=== PATIENT | female | born 2000 | race African-American/Black ===

== ENCOUNTER 2021-02-24 11:55 | Outpatient (CLI) | payer OTHER, SELFPAY ==
--- NOTE | ~2021-02-24 | US_ITS ---
EXAMINATION: US breast BI complete HISTORY: Bilateral nipple discharge TECHNIQUE: Complete bilateral ultrasound including all four quadrants and the subareolar breasts was performed. COMPARISON: 05/14/2016 FINDINGS: No suspicious mass is identified in either breast to account for the patient's bilateral ni pple discharge. The subareolar breasts are normal in appearance as well. IMPRESSION: No specific sonographic correlate is identified for the reported patient's reported nipple discharge. Further evaluation at this time should be based on clinical assessment. Continued follow-up physical examination is recommended. BI-RADS Category 1: Negative Reviewed, dictated and finalized at location A. IMPRESSION: No specific sonographic correlate is identified for the reported patient's repo rted nipple discharge. Further evaluation at this time should be based on clini chandra assessment. Continued follow-up physical examination is recommended. BI-RADS Category 1: Negative
== END 2021-02-24 11:56 | disposition home or self-care (01) ==
LOC: ANHIMG 11:59
PROVIDERS: PCP Obstetrics & Gynecology; Visit Provider Obstetrics & Gynecology
DX: N64.52 Nipple discharge (principal)
CPT/HCPCS: 76641

== ENCOUNTER 2021-05-25 08:07 | Outpatient (CLI) | payer OTHER, SELFPAY ==
--- NOTE | ~2021-05-25 | US_ITS ---
EXAMINATION: US right upper quadrant DATE: 05/25/2021 08:38 INDICATION: Epigastric abdominal pain TECHNIQUE: Multiple grayscale and Doppler ultrasound images of the abdomen were obtained. COMPARISON: None available FINDINGS: Bowel gas obscures visualization of the pancreas. The visualized portions of the pancreas a re unremarkable. The liver is normal with normal echogenicity and echotexture. No surface nodularity. Normal hepatopetal flow in the main portal vein. The gallbladder is normal with no abnormal wall thi ckening, pericholecystic fluid or stones. The normal common bile duct measures 5 mm. There was no son ographic Hale sign. IMPRESSION: 1. Normal sonographic study of the gallbladder. Reviewed, dictated and finalized at location B.
== END 2021-05-25 08:08 | disposition home or self-care (01) ==
LOC: ANHIMG 08:13
PROVIDERS: PCP Internal Medicine; Visit Provider Internal Medicine
DX: R10.13 Epigastric pain (principal)
CPT/HCPCS: 76705

== ENCOUNTER 2021-12-03 08:13 | Emergency (ER) | payer OTHER, SELFPAY ==
--- NOTE | ~2021-12-03 | XR_ITS ---
EXAMINATION: XR hip RT min 3V w AP pelvis DATE: 12/03/2021 09:35 INDICATION: Right hip pain. Fall in shower. TECHNIQUE: An anteroposterior view of the pelvis and 3 views of right hip were obtained. COMPARISON: None. FINDINGS: Bone alignment is normal. No fracture. Joint spaces are well maintained. IMPRESSION: 1. No fracture. Reviewed, dictated and finalized at location A. [employer] IN[employer] IMPRESSION: 1. No fracture.
[2021-12-03 08:13] VITALS: BP 125/71; PULSE 99; RESP 16; TEMP 37; O2SAT 98
--- NOTE | 2021-12-03 09:11 | ED.FALL ---
HPI - Fall General Chief Complaint: Fall Stated Complaint: right hip injury Time Seen by Provider: 12/03/21 08:33 Source: patient Limitations: no limitations History of Present Illness HPI Narrative: 21-year-old female Patient says that she was getting out of the shower yesterday and slipped and fell and injured her right hip area She is not quite sure what she did exactly whether she stretched it out or landed on it There was no head injury or loss of consciousness or neurologic symptoms Yesterday it was more or less okay but today it was more painful so she came to the hospital to get checked Related Data Allergies Allergy/AdvReac Type Severity Reaction Status Date / Time No Known Allergies Allergy Verified 12/03/21 09:44 Review of Systems Constitutional: Constitutional: Denies fatigue and Denies weakness Musculoskeletal: Musculoskeletal: Reports back pain and Reports arthralgias Neurologic: Denies vertigo, Denies dizziness, Denies syncope, Denies focal weakness and Denies numbness Hematologic/Lymphatic: Hematologic/Lymphatic: Denies easy bleeding and Denies easy bruising Exam Const: General: no acute distress and alert Nutritional Appearance: obese Orientation/consciousness: patient oriented x3 HENMT: Head: normal to inspection, no contusions and no hematomas Eyes: Conjunctivae: conjunctivae normal Resp: Effort & Inspection: normal respiratory effort and not labored Neuro: General: patient oriented x3 Extrem: General: normal to inspection Other: Right hip area shows no bruising or abrasions or swelling or deformity She has normal passive range of motion Negative straight leg raise No SI tenderness Course Vital Signs Vital signs: Vital Signs Temperature 37.0 C 12/03/21 08:13 Pulse Rate 99 12/03/21 08:13 Respiratory Rate 16 12/03/21 08:13 Blood Pressure 125/71 12/03/21 08:13 Pulse Oximetry 98 12/03/21 08:13 Temperature 37.0 C 12/03/21 08:13 Pulse Rate 99 12/03/21 08:13 Respiratory Rate 16 12/03/21 08:13 Blood Pressure 125/71 12/03/21 08:13 Pulse Oximetry 98 12/03/21 08:13 MDM - Fall Imaging Data Radiologist's impression: ITS Impressions Hip/Pelvis X-Ray 12/03/21 09:50 IMPRESSION: 1. No fracture. Discharge Plan Discharge Clinical Impression: Fall in (into) shower or empty bathtub, initial encounter Patient Disposition: Home, Self-Care Condition: Stable Instructions: Hip Contusion (ED) Additional Instructions: Tylenol or Aleve as needed Follow-up/Referrals: Juan Barnett MD [Primary Care Provider] - (As needed)
[2021-12-03] MEDS: IBUPROFEN 400 MG TABLET 800 MG PO (09:46)
== END 2021-12-03 10:23 | disposition home or self-care (01) ==
PROVIDERS: Emergency Provider Emergency Medicine; PCP Internal Medicine
DX: S79.911A Unspecified injury of right hip, initial encounter (principal); W18.2XXA Fall in (into) shower or empty bathtub, initial encounter
CPT/HCPCS: 73502; 99283; A9270

== ENCOUNTER 2021-12-21 19:47 | Emergency (ER) | payer OTHER, SELFPAY ==
[2021-12-21] VITALS (8 sets, daily range): BP systolic 101–164; BP diastolic 71–106; PULSE 98–130; RESP 18–30; TEMP 35.7–37; O2SAT 97–99
--- NOTE | ~2021-12-21 | CT_ITS ---
EXAMINATION: CT abdomen pelvis w con EXAM DATE: 12/21/2021 22:43 INDICATION: RUQ pain . TECHNIQUE: Spiral CT of the abdomen and pelvis was performed following intravenous injection of 100 m L Omnipaque 350. Axial, coronal and sagittal images of the abdomen and pelvis were reviewed. The do se-length product (DLP) for this examination was 1019.28 mGy-cm. The exposure was tailored according to patient size (auto mA exposure control), and iterative reconstruction (ASIR) was used as addition al dose reduction technique. There is no prior study for comparison. FINDINGS: The liver, spleen, adrenal glands and pancreas are unremarkable. Gallbladder is unremarkab le. No biliary obstruction. Portal and splenic veins are patent. Kidneys enhance symmetrically. T here is no hydronephrosis. The uterus and ovaries are unremarkable, no adnexal mass. The bladder i s unremarkable. There is no retroperitoneal or pelvic lymphadenopathy. Probable identification of a normal appendix on the coronal sequence. No pericecal inflammation. Th e stomach and small bowel are unremarkable. There is expected amount of colonic stool. No free int raperitoneal gas. The heart is normal in size. There are no pericardial or pleural effusions. The lung bases are unremarkable. The bones are unremarkable. IMPRESSION: 1. No acute intra-abdominal findings. Reviewed, dictated and finalized at location G. [facility]
--- NOTE | ~2021-12-21 | XR_ITS ---
EXAMINATION: XR chest 2V EXAM DATE: 12/21/2021 20:32 INDICATION: Midsternal Cp, Nausea, Vomiting Starting This Evening TECHNIQUE: Frontal and lateral projections of the chest obtained and reviewed. There is no prior fercho dy for comparison. FINDINGS: The lungs are clear. There are no pleural effusions. The cardiomediastinal silhouette is within normal limits. There is no pneumothorax suspected. The bones and soft tissues are unremarkab le. IMPRESSION: Unremarkable chest x-ray exam. Reviewed, dictated and finalized at location G. [employer]
--- NOTE | 2021-12-21 19:55 | ECG_ITS ---
Measurements Intervals [place] Rate: 124 P: MS: 0 QRS: 124 QRSD: 78 T: 67 QT: 284 QTc: 408 Interpretive Statements SINUS OR ECTOPIC ATRIAL TACHYCARDIA LIMB LEAD REVERSAL INCOMPLETE RIGHT BUNDLE BRANCH BLOCK BASELINE ARTIFACT- I, II, III, AVR, AVL, AVF, V1-V2, V5-V6 ABNORMAL ECG Electronically Signed On 12-21-2021 20:42:42 CRT by Antoine Odom D.O.
[2021-12-21 20:29] LABS: Basophils Percent Auto 0.4 % (0.2-1.2); Eosinophils Absolute Auto 0.1 K/mm3 (0-0.3); Hematocrit 41.7 % (37.0-47.0); Hemoglobin 14.4 g/dL (12.0-15.0); Immature Granulocyte Absolute 0.03 K/mm3 (0.00-0.031); Immature Granulocyte Percent A 0.4 % (0-0.5); Lymphocytes Absolute Auto 2.64 K/mm3 (0.9-3.2); Lymphocytes Percent Auto 36.9 % (18.3-44.2); Mean Corpuscular HGB Conc 34.5 g/dl (32-36); Mean Corpuscular Hemoglobin 30.9 pg (26-34); Mean Corpuscular Volume 89.5 fl (80-100); Mean Platelet Volume 9.5 fl (7.4-10.4); Monocytes Absolute Auto 0.8 K/mm3 (0.1-0.6); Monocytes Percent Auto 10.5 % (2.6-8.5); Neutrophils Absolute Auto 3.6 K/mm3 (1.3-6.7); Neutrophils Percent Auto 50.8 % (45.5-73.1); Platelet Count Result 261 k/mm3 (150-375); Red Blood Count 4.66 M/mm3 (4.2-5.4); Red Cell Distribution Width 12.4 % (11.5-14.5); White Blood Count 7.2 K/mm3 (4.5-10.0)
[2021-12-21 20:37] LABS: Prothrombin Time 12.9 Seconds (11.1-14.7)
[2021-12-21 20:38] LABS: Alanine Aminotransferase 26 U/L (4-35); Albumin Level 4.7 g/dL (3.5-5.1); Alkaline Phosphatase 55 U/L (38-126); Anion Gap 9 mmol/L (8-16); Aspartate Amino Transferase 33 U/L (14-36); Bilirubin,Total 0.3 mg/dL (0.2-1.3); Blood Urea Nitrogen 15 mg/dL (7-17); Calcium 9.2 mg/dL (8.4-10.2); Carbon Dioxide 21 mmol/L (22-30); Chloride 109 mmol/L (98-107); Estimated CRCL calculation 96 ml/min; Estimated Glomerular Filt Rate > 60; Glucose 101 mg/dL (65-110); Lipase 101 U/L (23-300); Partial Thromboplastin Time 25.7 SECONDS (22.3-36.8); Potassium 4.1 mmol/L (3.4-5.0); Sodium 139 mmol/L (137-145)
[2021-12-21] MEDS: SODIUM CHLORIDE 0.9% IV 1,000 ML 999 ML IV CONT (20:47)
[2021-12-21] MEDS: ONDANSETRON INJ 4 MG/2 ML VIAL IV PUSH (20:48)
[2021-12-21 20:50] LABS: Troponin I < 0.012 ng/mL (0.000-0.034)
[2021-12-21 21:06] LABS: Add Urine Microscopic? YES; Appearance Urine Clear (Clear); Bilirubin Urine Negative (Negative); Blood Urine Negative (Negative); Color Urine Yellow (Yellow); Glucose Urine UA Negative (Negative); Ketones Urine Negative (Negative); Leukocyte Esterase Ur Negative LEU/UL (Negative); Mucus Urine Rare /lpf; Nitrate Urine Negative (Negative); Protein Urine Negative (Negative); RBC Urine 0-2 /hpf (0-2); Specific Grav Ur 1.024 (1.001-1.035); Squamous Epithelial Cell Urine Many /hpf (Few); Urobilinogen Urine Negative mg/dL (<2.0); WBC Urine 0-3 /hpf
--- NOTE | 2021-12-21 21:25 | ED.GENADULT ---
HPI - General Adult General Chief complaint: Chest Pain Stated complaint: 30 min sternal chest pain, n/dizzy, hand tingling Time Seen by Provider: 12/21/21 19:48 History of Present Illness HPI narrative: Patient is a 21-year-old female who presents ER with reports of dizziness. Reports she was taking out the trash at her work when she developed sudden onset dizziness. Associated with nausea. She reports she started having chattering of her teeth and also some tingling in her fingers associated with rapid breathing. Both of which improved. She reports upper abdominal pain moving into her chest. No aggravating or alleviating factors. Related Data Home Medications Medication Instructions Recorded Confirmed buspirone 5 mg PO BID 12/21/21 lamotrigine [Lamictal] 150 mg PO DAILY 12/21/21 Allergies Allergy/AdvReac Type Severity Reaction Status Date / Time No Known Allergies Allergy Verified 12/03/21 09:44 Review of Systems Review of Systems: All systems reviewed & are unremarkable except as noted in HPI and below Constitutional: Constitutional: Denies chills, Denies fever(s) and Denies weakness ENT: Denies nasal congestion and Denies sore throat Cardiovascular: Cardiovascular: Reports chest pain, Denies rapid heart rate and Denies radiating jaw, neck or arm pain Respiratory: Respiratory: Denies cough, Denies dyspnea and Denies wheezing Gastrointestinal: Gastrointestinal: Reports abdominal pain, Denies diarrhea, Reports nausea and Reports vomiting Genitourinary: Genitourinary: Denies nocturia, Denies dysuria and Denies flank pain Neurologic: Reports dizziness, Denies syncope, Denies headache(s), Denies focal weakness and Denies numbness PMFSH Past Medical History Medical History (Updated 12/22/21 @ 00:42 by Devon Lynn MD) Healthy female adult Surgical History Surgical History (Updated 12/22/21 @ 00:38 by Devon Lynn MD) No pertinent past surgical history Social History Social History (Updated 12/22/21 @ 00:38 by Devon Lynn MD) Smoking status: Never smoker Exam Narrative: GENERAL: Uncomfortable-appearing, well-nourished, and dry heaving. HEAD: Normocephalic, atraumatic. ENT: Mucous membranes moist. NECK: Supple. CHEST: Clear to auscultation. No respiratory distress. HEART: Tachycardic and regular. Normal peripheral pulses. ABDOMEN: Soft, tender palpation right upper quadrant with guarding, nondistended, normal active bowel sounds. EXTREMITIES: Normal range of motion. No edema. SKIN: Warm, dry, no rash. NEURO: Alert and oriented x3. PSYCH: Normal mood and affect. Course Course Emergency Course: Patient resting comfortably, pain-free no longer vomiting. Troponins negative x2. Recommend follow-up with PCP for outpatient ultrasound. Patient does not describe any vertigo. Suspect she had biliary colic that also caused anxiety with rapid bleeding that caused tingling in her mouth and fingers. Patient verbalized understanding. Vital Signs Vital signs: Vital Signs Temperature 96.3 F L 12/21/21 19:55 Pulse Rate 122 H 12/21/21 19:55 Respiratory Rate 22 H 12/21/21 19:55 Blood Pressure 156/100 H 12/21/21 19:55 Pulse Oximetry 99 12/21/21 19:55 Temperature 98.6 F 12/21/21 20:51 Pulse Rate 108 H 12/21/21 23:06 Respiratory Rate 18 12/21/21 23:00 Blood Pressure 126/82 12/21/21 23:06 Pulse Oximetry 99 12/21/21 23:00 Medical Decision Making Vital Signs Vital Signs: Vital Signs Temperature 96.3 F L 12/21/21 19:55 Pulse Rate 122 H 12/21/21 19:55 Respiratory Rate 22 H 12/21/21 19:55 Blood Pressure 156/100 H 12/21/21 19:55 Pulse Oximetry 99 12/21/21 19:55 Temperature 98.6 F 12/21/21 20:51 Pulse Rate 108 H 12/21/21 23:06 Respiratory Rate 18 12/21/21 23:00 Blood Pressure 126/82 12/21/21 23:06 Pulse Oximetry 99 12/21/21 23:00 Lab Data Result diagrams: 12/21/21 20:22 12/21/21 20:21 Lab
[2021-12-21] MEDS: MORPHINE SULFATE (*CRX) 4 MG/ML INJ IV PUSH (22:08)
[2021-12-21 22:21] LABS: Pregnancy On Board Control Positive; Urine Pregnancy Test Negative
[2021-12-22 00:31] LABS: Troponin I < 0.012 ng/mL (0.000-0.034)
[2021-12-22 00:59] VITALS: BP 109/6; PULSE 90; RESP 18; O2SAT 98
== END 2021-12-22 01:00 | disposition home or self-care (01) ==
PROVIDERS: Emergency Provider Emergency Medicine; PCP Internal Medicine
DX: R10.11 Right upper quadrant pain (principal); R00.0 Tachycardia, unspecified
CPT/HCPCS: 36415; 71046; 74177; 80053; 81001; 81025; 83690; 84484; 85025; 85610; 85730; 93005; 96361; 96374; 96375; 99284; J2270; J2405; J7030; Q9967

== ENCOUNTER 2022-03-02 01:03 | Day surgery (SDC) | payer OTHER, SELFPAY ==
[2022-03-01 14:50] VITALS: BMI 35.4
--- NOTE | 2022-03-02 12:44 | WPDANESEPPF ---
Anes - Initial Pre Proc Eval Procedure: Operation Date: 03/02/22 14:00 Proposed Procedures p Esophagogastroduodenoscopy - Roberto Mccormick MD Date/Time: 03/02/22 12:44 Surgeon: Roberto Mccormick MD Pre Op Diagnosis: abdominal pain Patient Data Age: 22 Gender: F Height: 1.7 m Weight: 100.3 kg Allergies Allergy/AdvReac Type Severity Reaction Status Date / Time No Known Allergies Allergy Verified 03/02/22 12:38 Home Medications Medication Instructions Recorded Confirmed Type buspirone 5 mg PO BID 12/21/21 03/02/22 History lamotrigine [Lamictal] 150 mg PO DAILY 12/21/21 03/02/22 History etonogestrel 68 mg subdermal 1 implant SUBDERMAL ONCE 02/06/22 03/02/22 History implant cholecalciferol (vitamin D3) 1,250 1,250 mcg PO MONTHLY 02/21/22 03/02/22 History mcg (50,000 unit) tablet spironolactone 100 mg tablet 100 mg PO DAILY 02/21/22 03/02/22 History Patient hx anesthesia problems: none Family hx anesthesia problems: none Results Review: All pre-operative results and documents have been reviewed as part of the pre-operative evaluation. [facility] Past Medical History Medical History (Updated 03/02/22 @ 12:45 by Param Hernandez MD) Depression Insertion of Nexplanon 03/2021 Obesity Polycystic ovarian syndrome Surgical History Surgical History No pertinent past surgical history Family History Family History Father Hypertension Mother Hypertension Social History Social History Smoking status: Never smoker Alcohol intake: never Substance use: never Substance use type: does not use Living arrangements: alone Gender identity (if verbalized by the patient): Female Spiritual care concerns: No Anes - Eval Final PreProcedure Day of Procedure 03/02/22 12:44 Patient weight: obese Heart: regular rate and rhythm Lungs: clear to auscultation Airway: Mallampati scale class II Neurological: alert and oriented Last oral intake: >/= 8 hours ASA classification: II Emergent: no Anesthetic plan: proceed Anesthesia type and monitoring: general GIVS and standard monitoring Results Review: All pre-operative results and documents have been reviewed as part of the pre-operative evaluation. Informed Consent: The patient's anesthetic plan and its attendant risks and benefits were discussed with the patient/family/POA. Questions were solicited and answers provided to the satisfaction of the patient/family/POA.
[2022-03-02] MEDS: LACTATED RINGERS 1,000 ML 150 ML IV CONT (12:55)
[2022-03-02 12:58] VITALS: BP 103/62; PULSE 91; RESP 16; TEMP 36.2; O2SAT 100
--- NOTE | 2022-03-02 13:09 | WPDHPUPDATE1 ---
History and Physical Update Update Date/Time: 03/02/22 13:09 History and Physical has been reviewed, including an updated exam of the patient. There are NO changes in the patient's condition. Risks, benefits, and alternatives have been discussed and questions answered. Patient agrees to proceed with procedure.
[2022-03-02 13:28] VITALS: BP 109/51; PULSE 80; RESP 19; O2SAT 97
[2022-03-02 13:38] VITALS: BP 125/63; PULSE 94; RESP 21; O2SAT 100
[2022-03-02 13:48] VITALS: BP 109/67; PULSE 88; RESP 17; O2SAT 100
== END 2022-03-02 14:00 | disposition home or self-care (01) ==
PROVIDERS: Visit Provider Internal Medicine Gastroenterology
PROC: 0DJ08ZZ Inspection of Upper Intestinal Tract, Via Natural or Artificial Opening Endoscopic (ICD-10-PCS; CPT 43235; principal; 2022-03-02 14:00)
DX: R10.13 Epigastric pain (principal); F32.9 Major depressive disorder, single episode, unspecified; E28.2 Polycystic ovarian syndrome; E66.9 Obesity, unspecified; Z68.34 Body mass index [BMI] 34.0-34.9, adult
CPT/HCPCS: 43239; 88305; J2704; J7120

== ENCOUNTER 2022-05-27 23:21 | Observation (INO) | payer MEDICARE, MEDICAID, SELFPAY ==
--- NOTE | ~2022-05-27 | CT_ITS ---
EXAMINATION: CT abdomen pelvis w con DATE: 05/28/2022 01:15 INDICATION: RLQ pain TECHNIQUE: Computed tomography (CT) of the abdomen and pelvis was performed with 100 mL Omnipaque-300 intravenous contrast. Automated exposure control and iterative reconstruction technique were employe d. The dose-length product was 766.35 mGy-cm. COMPARISON: 12/21/2021. FINDINGS: Lower thorax: Unremarkable Liver: Right lobe hypodensity, too small to characterize but likely cyst, otherwise normal. Biliary/Gallbladder: Gallbladder is partially collapsed. No bile duct dilation. Pancreas: No mass or duct dilation. Spleen: Normal. Adrenals:No mass. Kidneys: No mass, stone, or hydronephrosis. GI tract: No small or large bowel dilation. Focal dilation of the appendix to 9 mm, with wall hyperem ia, and minimal periappendiceal inflammation. Mesentery/Peritoneum: No ascites, mass, or free air. Retroperitoneum: No mass. Pelvis: Pelvic organs are within normal limits. 3.9 cm simple left ovarian cyst. Soft Tissues: Soft tissues and body wall unremarkable. Bones: No acute osseous finding. IMPRESSION: Acute uncomplicated appendicitis. 3.9 cm simple left ovarian cyst. Persistent IT problems prevented sending this examination to the overnight reading service. I was not ified at 3:55 AM. Results reported telephonically to Dr. Barksdale by Dr. Johnston at 4:10 AM on 02/26/2022. Reviewed, dictated and finalized at location K. IMPRESSION: Acute uncomplicated appendicitis. 3.9 cm simple left ovarian cyst. Persistent IT problems prevented sending this examination to the overnight read ing service. I was notified at 3:55 AM. Results reported telephonically to Dr. Barksdale by Dr. Johnston at 4:10 AM on 02/03.
[2022-05-27 23:44] VITALS: BP 141/84; PULSE 102; RESP 18; TEMP 36.9; O2SAT 100
[2022-05-28] VITALS (27 sets, daily range): BP systolic 97–138; BP diastolic 52–93; PULSE 80–108; RESP 16–30; TEMP 36.3–36.9; O2SAT 94–100; BMI 30.7
[2022-05-28 00:24] LABS: Appearance Urine Clear (Clear); Bilirubin Urine Negative (Negative); Blood Urine Negative (Negative); Color Urine Yellow (Yellow); Glucose Urine UA Negative (Negative); Ketones Urine Negative (Negative); Leukocyte Esterase Ur Negative LEU/UL (Negative); Nitrate Urine Negative (Negative); Protein Urine Negative (Negative); Specific Grav Ur >= 1.030 (1.001-1.035); Urobilinogen Urine 0.2 mg/dL (<2.0); pH Urine 5.5 (5.0-9.0)
[2022-05-28 00:30] LABS: Basophils Percent Auto 0.5 % (0.2-1.2); Eosinophils Percent Auto 0.7 % (0-4.4); Hematocrit 43.7 % (37.0-47.0); Hemoglobin 14.5 g/dL (12.0-15.0); Immature Granulocyte Absolute 0.06 K/mm3 (0.00-0.031); Lymphocytes Absolute Auto 2.88 K/mm3 (0.9-3.2); Mean Corpuscular HGB Conc 33.2 g/dl (32-36); Mean Corpuscular Volume 90.5 fl (80-100); Mean Platelet Volume 9.9 fl (7.4-10.4); Monocytes Absolute Auto 0.6 K/mm3 (0.1-0.6); Monocytes Percent Auto 9.8 % (2.6-8.5); Neutrophils Absolute Auto 2.4 K/mm3 (1.3-6.7); Platelet Count Result 223 k/mm3 (150-375); Red Blood Count 4.83 M/mm3 (4.2-5.4); Red Cell Distribution Width 12.8 % (11.5-14.5)
[2022-05-28 00:37] LABS: Add Urine Microscopic? NO; Alanine Aminotransferase 107 U/L (6-35); Albumin Level 4.2 g/dL (3.5-5.1); Alkaline Phosphatase 54 U/L (38-126); Anion Gap 11 mmol/L (8-16); Aspartate Amino Transferase 85 U/L (14-36); Bilirubin,Total 0.2 mg/dL (0.2-1.3); Blood Urea Nitrogen 10 mg/dL (7-17); Calcium 9.1 mg/dL (8.4-10.2); Carbon Dioxide 23 mmol/L (22-30); Chloride 105 mmol/L (98-107); Estimated CRCL calculation 116 ml/min; Estimated Glomerular Filt Rate > 60; Glucose 121 mg/dL (65-110); Potassium 4.1 mmol/L (3.4-5.0); Sodium 139 mmol/L (137-145)
--- NOTE | 2022-05-28 00:40 | ED.ABDPAIN ---
HPI - Abdominal Pain General Chief Complaint: Abdominal Pain Stated Complaint: RLQ abd pain Time Seen by Provider: 05/27/22 23:41 History of Present Illness HPI narrative: 22-year-old female with diagnosis of COVID on 05/18 presenting to the emergency department for evaluation of intermittent shortness of breath and lower abdominal pain. Patient was evaluated in outside hospital and was diagnosed with a stomach bug. Patient states that since then her lower abdominal pain has since worsened. Patient states over the last week she has had intermittent lower abdominal pain but at approximately 11 PM tonight she had an acute worsening of her right lower quadrant pain. Patient also does have a history of PCOS. Related Data Home Medications Medication Instructions Recorded Confirmed buspirone 5 mg tablet 5 mg PO BID 12/21/21 03/02/22 lamotrigine 150 mg tablet 150 mg PO DAILY 12/21/21 03/02/22 (Lamictal) etonogestrel 68 mg subdermal 1 implant subdermal ONCE 02/06/22 03/02/22 implant (Nexplanon) cholecalciferol (vitamin D3) 1,250 1,250 mcg PO MONTHLY 02/21/22 03/02/22 mcg (50,000 unit) tablet spironolactone 100 mg tablet 100 mg PO DAILY 05/23/22 Allergies Allergy/AdvReac Type Severity Reaction Status Date / Time No Known Allergies Allergy Verified 04/11/22 15:36 Review of Systems Review of Systems: CONSTITUTIONAL: Denies fever, chills, or sweats. EYES: Denies visual changes, redness, or discharge. ENT: Denies rhinorrhea, congestion, sore throat, or otalgia. CARDIOVASCULAR: Denies chest pain, palpitations, or edema. RESPIRATORY: See HPI GASTROINTESTINAL: See HPI GENITOURINARY: Denies dysuria or hematuria. SKIN: Denies rash or itching. MUSCULOSKELETAL: Denies back pain, joint pain, or myalgia. NEUROLOGIC: Denies headache, numbness, or weakness. [facility] Past Medical History Medical History Depression Insertion of Nexplanon 03/2021 Obesity Polycystic ovarian syndrome Surgical History Surgical History No pertinent past surgical history Family History Family History Father Hypertension Mother Hypertension Social History Social History Smoking status: Never smoker Alcohol intake: never Substance use: never Substance use type: does not use Gender identity (if verbalized by the patient): Female Spiritual care concerns: No Exam Narrative: APPEARANCE: Well appearing, no pain, no distress, well-nourished. HEAD: normocephalic, atraumatic. EYES: PERRLA/EOMI, conjunctivae clear. NOSE: Normal no drainage NECK: Supple. No adenopathy, no masses. RESPIRATORY: Airway patent, respirations nonlabored. Clear to auscultation bilaterally, no rales, rhonchi, wheezing. CARDIOVASCULAR: Regular rate and rhythm without murmurs rubs or gallops. ABDOMINAL: Soft, nondistended, normal bowel sounds, suprapubic and right lower quadrant tenderness to palpation. MUSCULOSKELETAL: Moves all extremities. Strength/ROM intact, No edema, No calf tenderness. NEURO: Alert. Cranial nerves II through XII intact. Grossly intact SKIN: Warm, dry. Normal Color Course Course Emergency Course: CT scan showed evidence of acute appendicitis. Patient was started on Zosyn in the emergency department. Surgery was consulted and Dr. Bautista admitted patient primarily. Patient was updated on the diagnosis and anticipated treatment plan. All questions and concerns were addressed. Patient was stable at time of admission. Vital Signs Vital signs: Vital Signs Temperature 98.4 F 05/27/22 23:44 Pulse Rate 102 H 05/27/22 23:44 Respiratory Rate 18 05/27/22 23:44 Blood Pressure 141/84 H 05/27/22 23:44 Pulse Oximetry 100 05/27/22 23:44 Oxygen Delivery Room Air 05/27/22 23:44 Temperature 98.4 F 05/27/22 23:44
--- NOTE | 2022-05-28 01:00 | PC.NURSE ---
Patient taken to CT.
[2022-05-28] MEDS: HYDROmorphone HCL INJ (*CRX) 1 MG/ML SYR 0.5 MG IV PUSH ×3 (02:13→08:59)
--- NOTE | 2022-05-28 04:23 | PC.NURSE ---
Pt NOT swabbed for Covid. Reports tested COVID + on 05/18/22.
[2022-05-28] MEDS: SODIUM CHLORIDE 0.9% IV 1,000 ML 125 ML IV CONT (04:38)
--- NOTE | 2022-05-28 05:00 | ADMGEN ---
This patient, Iveth Ashraf, was admitted to Medical Room 341-01. Patient/family oriented to hospital policies and general routines including ID bracelet, bed and alarms, visiting hours, pain management, procedures, bathroom and other care routines, personal items, smoking policy, room service/diet, and visiting hours. Information on how to activate the Rapid Response Team has been discussed. Patient/Family are encouraged to report perceived risks to care and to ask questions if they do not understand what they are told or what they should do.
--- NOTE | 2022-05-28 09:48 | PM.IMHP ---
H&P: HPI History of Present Illness Date/Time: 05/28/22 09:48 Chief Complaint: RLQ abdominal pain Narrative: This is a 22-year-old woman who presented to the ER last night for evaluation of RLQ abdominal pain. She reports testing positive for COVID on 05/18/22 with symptoms of cough, congestion, nausea, vomiting, and diarrhea. Her symptoms had improved and she developed RLQ abdominal pain about 1 week ago. This pain was intermittent and mild. She reports associating her pain with COVID. Yesterday, around 11:00 pm she reports her RLQ abdominal pain returned and became more intense than it had been over the past week. She was still having nausea and one episode of NBNB vomiting yesterday. All other symptoms she associated with COVID have resolved. Due to the worsening abdominal pain, she presented to the ER. CT scan of the abdomen and pelvis showed acute uncomplicated appendicitis and incidental findings of a left ovarian cyst. Labs showed a normal WBC count. Our service was consulted by the ED physician and she was admitted in this setting. She received one dose of IV Zosyn in the ER and was made NPO with IV fluids. She is now seen on the medical floor. Denies any history of abdominal surgeries in the past. Review of Systems Review of Systems: All systems reviewed & are unremarkable except as noted in HPI and below Constitutional: Constitutional: Reports as per HPI, Denies chills, Denies fatigue, Denies fever(s), Reports poor appetite and Denies weakness Eyes: Eyes: Reports no additional eye complaints ENT: Reports system reviewed and no additional complaints, except as documented Cardiovascular: Cardiovascular: Reports no additional cardiovascular complaints, Denies chest pain and Denies leg edema Respiratory: Respiratory: Reports no additional respiratory complaints, Denies chest congestion, Denies cough, Denies dyspnea and Denies dyspnea on exertion Gastrointestinal: Gastrointestinal: Reports as per HPI, Reports no additional gastrointestinal complaints, Reports abdominal pain, Denies melena, Denies hematochezia, Denies coffee ground emesis, Reports diarrhea, Reports nausea, Reports vomiting and Denies hematemesis Genitourinary: Genitourinary: Reports no additional female genitourinary complaints and Denies dysuria Musculoskeletal: Musculoskeletal: Reports no additional musculoskeletal complaints Integumentary/Breasts: Skin/Breast: Reports system reviewed and no additional complaints, except as docu Neurologic: Reports system reviewed and no additional complaints, except as documented, Denies dizziness, Denies focal weakness and Denies numbness Psychiatric: Psychiatric: Reports no additional psychiatric complaints and Reports other (Hx bipolar depression and anxiety, on Abilify) [facility] Past Medical History Medical History Anxiety Bipolar disorder Depression Insertion of Nexplanon 03/2021 Obesity Polycystic ovarian syndrome Surgical History Surgical History No pertinent past surgical history Family History Family History Father Hypertension Mother Hypertension Social History Social History Smoking status: Current every day smoker Tobacco type: e-cigarettes/vaping Additional smoking assessment comments: Vapes daily with nicotine-containing substance for the past few months Alcohol intake: never Substance use: never Substance use type: does not use Living arrangements: with family Occupation/Education: occupation Additional occupation/education comments: Works in [email or web address] Gender identity (if verbalized by the patient): Female Spiritual care concerns: No Meds Home Medications and Allergies Home Medications Medication Instructions Recorded Confirmed
--- NOTE | 2022-05-28 09:51 | WPDANESEPPF ---
Anes - Initial Pre Proc Eval Procedure: Operation Date: 05/28/22 11:00 Proposed Procedures p Laparoscopic Appendectomy - Piter Bautista DO Date/Time: 05/28/22 09:51 Surgeon: Piter Bautista DO Pre Op Diagnosis: Acute Appendicitis Patient Data Age: 22 Gender: F Height: 1.7 m Weight: 88.9 kg Last Vital Signs Temp 36.9 C 05/28/22 06:00 Pulse 80 05/28/22 06:00 Resp 18 05/28/22 06:00 BP 121/62 05/28/22 06:00 Pulse Ox 100 05/28/22 06:00 O2 Del Method Room Air 05/27/22 23:44 Allergies Allergy/AdvReac Type Severity Reaction Status Date / Time No Known Allergies Allergy Verified 05/28/22 04:59 Home Medications Medication Instructions Recorded Confirmed Type buspirone 5 mg tablet 5 mg PO BID 12/21/21 05/28/22 History etonogestrel 68 mg subdermal 1 implant subdermal ONCE 02/06/22 05/28/22 History implant (Nexplanon) cholecalciferol (vitamin D3) 1,250 1,250 mcg PO MONTHLY 02/21/22 05/28/22 History mcg (50,000 unit) tablet spironolactone 100 mg tablet 100 mg PO DAILY 05/23/22 05/28/22 History aripiprazole 5 mg tablet 5 mg PO DAILY 05/28/22 05/28/22 History Laboratory Tests 05/28/22 05/28/22 05/28/22 00:06 00:06 00:06 WBC 6.0 K/mm3 K/mm3 (4.5-10.0) RBC 4.83 M/mm3 M/mm3 (4.2-5.4) Hgb 14.5 g/dL g/dL (12.0-15.0) Hct 43.7 % % (37.0-47.0) MCV 90.5 fl fl (80-100) MCH 30.0 pg pg (26-34) MCHC 33.2 g/dl g/dl (32-36) RDW 12.8 % % (11.5-14.5) Plt Count 223 k/mm3 k/mm3 (150-375) MPV 9.9 fl fl (7.4-10.4) Immature Gran % (Auto) 1.0 % H % (0-0.5) Neut % (Auto) 40.0 % L % (45.5-73.1) Lymph % (Auto) 48.0 % H % (18.3-44.2) Will % (Auto) 9.8 % H % (2.6-8.5) Eos % (Auto) 0.7 % % (0-4.4) Baso % (Auto) 0.5 % % (0.2-1.2) Lymph # (Auto) 2.88 K/mm3 K/mm3 (0.9-3.2) Will # (Auto) 0.6 K/mm3 K/mm3 (0.1-0.6) Eos # (Auto) 0.0 K/mm3 K/mm3 (0-0.3) Baso # (Auto) 0.0 K/mm3 K/mm3 (0.0-0.1) Abs Immat Gran (auto) 0.06 K/mm3 H K/mm3 (0.00-0.031) Absolute Neuts (auto) 2.4 K/mm3 K/mm3 (1.3-6.7) Absolute Nucleated RBC 0.0 K/mm3 K/mm3 (0.0-0.012) Nucleated RBC % 0.0 % % (0.0-0.2) Sodium 139 mmol/L mmol/L (137-145) Potassium 4.1 mmol/L mmol/L (3.4-5.0) Chloride 105 mmol/L mmol/L (98-107) Carbon Dioxide 23 mmol/L mmol/L (22-30) Anion Gap 11 mmol/L mmol/L (8-16) BUN 10 mg/dL D mg/dL (7-17) Creatinine 0.80 mg/dL mg/dL (0.7-1.0) Estim Creat Clear Calc 116 ml/min ml/min Estimated GFR > 60 (59 - ) Glucose 121 mg/dL H mg/dL (65-110) Calcium 9.1 mg/dL mg/dL (8.4-10.2) Total Bilirubin 0.2 mg/dL mg/dL (0.2-1.3) AST 85 U/L H U/L (14-36) ALT 107 U/L H U/L (6-35) Alkaline Phosphatase 54 U/L U/L (38-126) Total Protein 8.0 g/dL g/dL (6.3-8.2) Albumin 4.2 g/dL g/dL (3.5-5.1) Urine Color Yellow (Yellow) Urine Appearance Clear (Clear) Urine pH 5.5 (5.0-9.0) Ur Specific [place] >= 1.030 (1.001-1.035) Urine Protein Negative mg/dL mg/dL (Negative) Urine Glucose (UA) Negative mg/dL mg/dL (Negative) Urine Ketones Negative mg/dL mg/dL (Negative) Ur Blood (Man) Negative (Negative) Urine Nitrate Negative (Negative) Urine Bilirubin Negative (Negative) Urine Urobilinogen 0.2 mg/dL mg/dL (<2.0) Leukocyte Esterase Rfl Negative LUIS/UL LUIS/UL (Negative) Results Review: All pre-operative results and documents have been reviewed as part of the pre-operative evaluation. [facility] Past Medical History Medical
[2022-05-28] MEDS: LACTATED RINGERS 1,000 ML 30 ML IV CONT (10:20)
--- NOTE | 2022-05-28 10:29 | WPDANESEPPF ---
Anes - Initial Pre Proc Eval Procedure: Operation Date: 05/28/22 11:00 Proposed Procedures p Laparoscopic Appendectomy - Piter Bautista DO Date/Time: 05/28/22 10:29 Surgeon: Piter Bautista DO Pre Op Diagnosis: Acute Appendicitis Patient Data Age: 22 Gender: F Height: 1.7 m Weight: 88.9 kg Last Vital Signs Temp 36.9 C 05/28/22 06:00 Pulse 80 05/28/22 06:00 Resp 18 05/28/22 06:00 BP 121/62 05/28/22 06:00 Pulse Ox 100 05/28/22 06:00 O2 Del Method Room Air 05/28/22 08:00 Allergies Allergy/AdvReac Type Severity Reaction Status Date / Time No Known Allergies Allergy Verified 05/28/22 04:59 Home Medications Medication Instructions Recorded Confirmed Type buspirone 5 mg tablet 5 mg PO BID 12/21/21 05/28/22 History etonogestrel 68 mg subdermal 1 implant subdermal ONCE 02/06/22 05/28/22 History implant (Nexplanon) cholecalciferol (vitamin D3) 1,250 1,250 mcg PO MONTHLY 02/21/22 05/28/22 History mcg (50,000 unit) tablet spironolactone 100 mg tablet 100 mg PO DAILY 05/23/22 05/28/22 History aripiprazole 5 mg tablet 5 mg PO DAILY 05/28/22 05/28/22 History Laboratory Tests 05/28/22 05/28/22 05/28/22 00:06 00:06 00:06 WBC 6.0 K/mm3 K/mm3 (4.5-10.0) RBC 4.83 M/mm3 M/mm3 (4.2-5.4) Hgb 14.5 g/dL g/dL (12.0-15.0) Hct 43.7 % % (37.0-47.0) MCV 90.5 fl fl (80-100) MCH 30.0 pg pg (26-34) MCHC 33.2 g/dl g/dl (32-36) RDW 12.8 % % (11.5-14.5) Plt Count 223 k/mm3 k/mm3 (150-375) MPV 9.9 fl fl (7.4-10.4) Immature Gran % (Auto) 1.0 % H % (0-0.5) Neut % (Auto) 40.0 % L % (45.5-73.1) Lymph % (Auto) 48.0 % H % (18.3-44.2) [place] % (Auto) 9.8 % H % (2.6-8.5) Eos % (Auto) 0.7 % % (0-4.4) Baso % (Auto) 0.5 % % (0.2-1.2) Lymph # (Auto) 2.88 K/mm3 K/mm3 (0.9-3.2) [place] # (Auto) 0.6 K/mm3 K/mm3 (0.1-0.6) Eos # (Auto) 0.0 K/mm3 K/mm3 (0-0.3) Baso # (Auto) 0.0 K/mm3 K/mm3 (0.0-0.1) Abs Immat Gran (auto) 0.06 K/mm3 H K/mm3 (0.00-0.031) Absolute Neuts (auto) 2.4 K/mm3 K/mm3 (1.3-6.7) Absolute Nucleated RBC 0.0 K/mm3 K/mm3 (0.0-0.012) Nucleated RBC % 0.0 % % (0.0-0.2) Sodium 139 mmol/L mmol/L (137-145) Potassium 4.1 mmol/L mmol/L (3.4-5.0) Chloride 105 mmol/L mmol/L (98-107) Carbon Dioxide 23 mmol/L mmol/L (22-30) Anion Gap 11 mmol/L mmol/L (8-16) BUN 10 mg/dL D mg/dL (7-17) Creatinine 0.80 mg/dL mg/dL (0.7-1.0) Estim Creat Clear Calc 116 ml/min ml/min Estimated GFR > 60 (59 - ) Glucose 121 mg/dL H mg/dL (65-110) Calcium 9.1 mg/dL mg/dL (8.4-10.2) Total Bilirubin 0.2 mg/dL mg/dL (0.2-1.3) AST 85 U/L H U/L (14-36) ALT 107 U/L H U/L (6-35) Alkaline Phosphatase 54 U/L U/L (38-126) Total Protein 8.0 g/dL g/dL (6.3-8.2) Albumin 4.2 g/dL g/dL (3.5-5.1) Urine Color Yellow (Yellow) Urine Appearance Clear (Clear) Urine pH 5.5 (5.0-9.0) Ur Specific [place] >= 1.030 (1.001-1.035) Urine Protein Negative mg/dL mg/dL (Negative) Urine Glucose (UA) Negative mg/dL mg/dL (Negative) Urine Ketones Negative mg/dL mg/dL (Negative) Ur Blood (Man) Negative (Negative) Urine Nitrate Negative (Negative) Urine Bilirubin Negative (Negative) Urine Urobilinogen 0.2 mg/dL mg/dL (<2.0) Leukocyte Esterase Rfl Negative LUIS/UL LUIS/UL (Negative) Patient hx anesthesia problems: none Family hx anesthesia problems: none Results Review: All pre-operative results and documents have been reviewed as part
--- NOTE | 2022-05-28 10:32 | WPDHPUPDATE1 ---
History and Physical Update Update Date/Time: 05/28/22 10:32 History and Physical has been reviewed, including an updated exam of the patient. There are NO changes in the patient's condition. Risks, benefits, and alternatives have been discussed and questions answered. Patient agrees to proceed with procedure.
[2022-05-28] MEDS: KETOROLAC 15 MG/ML VIAL (*BKC) IV PUSH (10:38)
[2022-05-28] MEDS: BUPIVACAINE/EPINEPHRINE 0.25% 50 ML VIAL INFILTRATE (11:19)
--- NOTE | 2022-05-28 11:27 | W.PM.PROC2 ---
Procedure Note - Detailed Date of Procedure 05/28/22 Pre-op Diagnosis Acute Appendicitis Post-op Diagnosis Same Procedure Performed Laparoscopic appendectomy Surgeon Piter Bautista, DO Anesthesia General and Local (0.5% bupivicaine with epinephrine) Indications This is a 22-year-old woman who presented to the emergency department overnight with right lower quadrant pain. She had been having some intermittent pain for the past week but then last night began having more severe constant pain. She denied any fevers or chills. She had never had symptoms like this in the past. CT showed evidence of acute appendicitis. She was admitted to the hospital for observation and decision was made to proceed with laparoscopic appendectomy, possible open. Findings Laparoscopic appendectomy was performed. The appendix was dilated in the midportion but the proximal and distal appendix appeared normal in size. There was some surrounding inflammation of the dilated portion. The base of the appendix appeared healthy and viable. No other intra-abdominal abnormalities were noted except for left ovarian cyst. The appendix was removed and sent to the lab for pathology. Description of Procedure Procedure as well as risks, benefits, and alternatives were explained to the patient. The patient agreed to proceed. Written consent was obtained and placed in chart prior to procedure. The patient was brought back to surgical suite. She was placed supine on operating table. Time-out was done to confirm the patient and procedure. The patient was then intubated by the Anesthesia Department. Her abdomen was prepped and draped in sterile fashion using chlorhexidine prep. A 5 mm incision was made just to the left of the patient's umbilicus and a 5 mm Optiview trocar was advanced through the abdominal layers under direct visualization. Once inside the peritoneal cavity, carbon dioxide insufflation was used to create a pneumoperitoneum. The camera was inserted and the abdomen was inspected. No immediate abnormalities were identified. The patient was then placed in slight Trendelenburg position and rotated to the left. A 5 mm incision was made in the suprapubic region in midline and a 5 mm trocar was inserted under direct visualization. A 12 mm incision was made in the left lower quadrant and a 12 mm trocar was inserted under direct visualization. The right lower quadrant was carefully inspected. The cecum was identified and then this was traced back to the appendix. The appendix was identified and grasped at the mesoappendix and lifted anteriorly. Careful blunt dissection was carried out at the base of the appendix through the mesoappendix using a [place] grasper. An Endo-BIRD 45 mm blue load stapler was then advanced across the base of the appendix and clamped and fired. A white reload was then clamped across the mesoappendix and fired. This freed up our appendix completely. It was then placed in an EndoCatch bag and removed through the left lower quadrant port. The staple lines were then inspected. Hemostasis appeared adequate and the staple lines appeared secure. The area was then irrigated with sterile saline. The pelvis was then carefully inspected and irrigated with sterile saline as well and the remainder of the abdomen was carefully inspected. The patient was then flattened out in bed. One final inspection was made around the abdominal cavity and no other abnormalities were seen. The left lower quadrant port was removed and a Nuno-Kassie cone was used to approximate the fascia with an 0 Vicryl simple interrupted suture. The remaining ports were then removed under direct visualization. The camera was removed and the pneumoperitoneum was released. 0.5% bupivacaine with epinephrine was infiltrated locally around each of the incisions. The skin of the incisions was then approximated using 4-0 Monocryl subcuticular suture and Exofin glue was applied on top. The patien
--- NOTE | 2022-05-28 11:29 | PM.DS ---
DS: Admitting Diagnosis Discharge Date 05/28/2022 Admitting Diagnosis Acute appendicitis DS: Discharge Diagnosis Discharge Diagnosis (1) Appendicitis: Qualifiers: Acute appendicitis type: unspecified acute appendicitis type Appendicitis type: acute appendicitis Qualified Code(s): K35.80 - Unspecified acute appendicitis Code(s): K37 - Unspecified appendicitis Status: Acute (2) Polycystic ovarian syndrome: Code(s): E28.2 - Polycystic ovarian syndrome Status: Acute (3) Bipolar disorder: Code(s): F31.9 - Bipolar disorder, unspecified Status: Acute (4) Obesity (BMI 30-39.9): Code(s): E66.9 - Obesity, unspecified Status: Acute DS: Summary Hospital Course Reason for hospitalization: Acute appendicitis Hospital Course: This is a 22-year-old woman who presented to the emergency department on 05/28/2022 with complaints of right lower quadrant abdominal pain. Her pain had been intermittent for about a week but then became constant and more severe last night. CT of her abdomen and pelvis showed evidence of acute appendicitis. She was placed in the hospital for observation and discussions were made with the patient about treatment options. She underwent laparoscopic appendectomy on 05/28/2022. Surgery was uncomplicated and she was returned to the surgical floor postoperatively. Her diet and activity were advanced as tolerated. She was discharged home once she was tolerating her diet, pain was controlled, vitals remained stable, and she was ambulating in the halls. Status at Discharge Functional status at discharge: independent ambulation Overall status at discharge: patient is progressing back to baseline Time Spent with Patient Time attestation: Total time spent providing and/or coordinating discharge services: Time spent: Less than 30 minutes Exam Narrative: Exam unchanged from preoperative exam DS: Data Data Completed and Pending Pending studies at discharge: Pending at discharge 05/28/22 11:06 Surgical [PTH] Routine Labs on day of discharge: Labs from last 24 hours 05/28/22 05/28/22 05/28/22 00:06 00:06 00:06 WBC 6.0 RBC 4.83 Hgb 14.5 Hct 43.7 MCV 90.5 MCH 30.0 MCHC 33.2 RDW 12.8 Plt Count 223 MPV 9.9 Immature Gran % (Auto) 1.0 H Neut % (Auto) 40.0 L Lymph % (Auto) 48.0 H [place] % (Auto) 9.8 H Eos % (Auto) 0.7 Baso % (Auto) 0.5 Lymph # (Auto) 2.88 [place] # (Auto) 0.6 Eos # (Auto) 0.0 Baso # (Auto) 0.0 Abs Immat Gran (auto) 0.06 H Absolute Neuts (auto) 2.4 Absolute Nucleated RBC 0.0 Nucleated RBC % 0.0 Sodium 139 Potassium 4.1 Chloride 105 Carbon Dioxide 23 Anion Gap 11 BUN 10 D Creatinine 0.80 Estim Creat Clear Calc 116 Estimated GFR > 60 Glucose 121 H Calcium 9.1 Total Bilirubin 0.2 AST 85 H ALT 107 H Alkaline Phosphatase 54 Total Protein 8.0 Albumin 4.2 Urine Color Yellow Urine Appearance Clear Urine pH 5.5 Ur Specific [place] >= 1.030 Urine Protein Negative Urine Glucose (UA) Negative Urine Ketones Negative Ur Blood (Man) Negative Urine Nitrate Negative Urine Bilirubin Negative Urine Urobilinogen 0.2 Leukocyte Esterase Rfl Negative Imaging Radiologist's impression: ITS Impressions Abdomen/Pelvis CT 05/28/22 04:01 IMPRESSION: Acute uncomplicated appendicitis. 3.9 cm simple left ovarian cyst. Persistent IT problems prevented sending this examination to the overnight reading service. I was notified at 3:55 AM. Results reported telephonically to Dr. Barksdale by Dr. Johnston at 4:10 AM on 02/26/2022. Discharge Plan Discharge Attending physician on discharge: Piter Bautista Discharging Clinician: Piter Bautista Anticipated Discharge Date/Time: 05/28/22 15:00 Patient Disposition: Home, Self-Care Activity: other - see
[2022-05-28] MEDS: fentaNYL CITRATE INJ (*CRX) 100 MCG/2 ML VIAL 25 MCG IV PUSH ×8 (12:06→12:48)
[2022-05-28] MEDS: ONDANSETRON INJ 4 MG/2 ML VIAL IV PUSH (12:07)
[2022-05-28] MEDS: SCOPOLAMINE 1.5 MG PATCH TRANSDERM (12:26)
[2022-05-28] MEDS: diphenhydrAMINE HCl INJ 50 MG/ML VIAL 25 MG IV PUSH (12:26)
[2022-05-28] MEDS: LACTATED RINGERS 1,000 ML 100 ML IV CONT (13:30)
[2022-05-28] MEDS: HYDROcodone/acetaminophen (*CRX) 5-325 MG TABLET 1 TAB PO (17:16)
--- NOTE | 2022-05-28 18:54 | PC.NURSE ---
Patient pharmacy in the computer is closed at the time of discharge. Swaging Machine Operator called Dr. Julio to determine if there was a way he could transfer pain medication to another pharmacy and Dr. Julio stated he could not. Patient agreed to discharge taking tylenol at home to manage pain and she will get the prescription tomorrow from the pharmacy once it is opened.
== END 2022-05-28 18:30 | disposition home or self-care (01) ==
LOC: ANHED 05-28 04:44 → ANH3MED 05-28 04:47
PROVIDERS: Admitting Provider Surgery; Emergency Provider Emergency Medicine; PCP Internal Medicine; Visit Provider Surgery
PROC: 0DTJ4ZZ Resection of Appendix, Percutaneous Endoscopic Approach (ICD-10-PCS; CPT 44970; principal; 2022-05-28 11:00)
DX: K38.8 Other specified diseases of appendix (principal); E28.2 Polycystic ovarian syndrome; F31.9 Bipolar disorder, unspecified; E66.9 Obesity, unspecified; Z68.30 Body mass index [BMI] 30.0-30.9, adult; R06.02 Shortness of breath; Z97.8 Presence of other specified devices; Z79.899 Other long term (current) drug therapy
CPT/HCPCS: 44970; 36415; 74177; 80053; 81003; 81025; 85025; 88304; 88312; 96361; 96376; A9270; G0378; J0330; J1170; J1200; J1885; J2250; J2405; J2543; J2704; J3010; J7030; J7120; Q9967

== ENCOUNTER 2022-06-01 03:25 | Emergency (ER) | payer MEDICARE, MEDICAID, SELFPAY ==
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
[2022-06-01 03:48] VITALS: BP 126/91; PULSE 101; RESP 18; TEMP 37; O2SAT 98
--- NOTE | 2022-06-01 03:50 | PC.NURSE ---
Crystal from [facility] called to notify will be on way shortly and here in aprox 30 mins.
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
[2022-06-01 07:51] LABS: Alanine Aminotransferase 57 U/L (6-35); Albumin Level 4.1 g/dL (3.5-5.1); Alkaline Phosphatase 53 U/L (38-126); Anion Gap 5 mmol/L (8-16); Aspartate Amino Transferase 39 U/L (14-36); Bilirubin,Total 0.4 mg/dL (0.2-1.3); Blood Urea Nitrogen 13 mg/dL (7-17); Calcium 8.4 mg/dL (8.4-10.2); Carbon Dioxide 26 mmol/L (22-30); Chloride 105 mmol/L (98-107); Estimated CRCL calculation 116 ml/min; Estimated Glomerular Filt Rate > 60; Glucose 93 mg/dL (65-110); Potassium 4.2 mmol/L (3.4-5.0); Sodium 136 mmol/L (137-145)
[2022-06-01 08:31] LABS: HIV 1/2 Ab P24 Ag Result Negative (Negative)
--- NOTE | 2022-06-01 08:31 | PC.NURSE ---
Assuming care at this time. Fidel garcia RN
[2022-06-01 08:39] LABS: Hepatitis B Surface Anti Res Negative
[2022-06-01] MEDS: EMTRICITABINE-TENOFOVIR 100 MG-150 MG TABLET 2 TAB PO (08:44)
[2022-06-01] MEDS: RALTEGRAVIR 400 MG TABLET PO (08:44)
[2022-06-01] MEDS: metroNIDAZOLE 250 MG TABLET 500 MG PO (08:45)
[2022-06-01] MEDS: ONDANSETRON HCL ODT 4 MG TABLET PO (08:45)
[2022-06-01] MEDS: DOXYCYCLINE HYCLATE 100 MG TABLET PO (08:53)
[2022-06-01] MEDS: cefTRIAXone 1 GM VIAL 0.5 GM IM (08:53)
--- NOTE | 2022-06-01 09:50 | PC.NURSE ---
patient discharged with HIV medication from pharmacy. [employer] awaiting patient discharge. PT denies any further questions. PT showered escorted by tech before discharge.
== END 2022-06-01 09:55 | disposition home or self-care (01) ==
PROVIDERS: Emergency Provider Emergency Medicine; PCP Internal Medicine
DX: T74.21XA Adult sexual abuse, confirmed, initial encounter (principal); E28.2 Polycystic ovarian syndrome; F41.9 Anxiety disorder, unspecified; F31.9 Bipolar disorder, unspecified; E66.9 Obesity, unspecified; Z68.34 Body mass index [BMI] 34.0-34.9, adult; F17.290 Nicotine dependence, other tobacco product, uncomplicated; Z11.4 Encounter for screening for human immunodeficiency virus [HIV]; Y07.59 Other non-family member, perpetrator of maltreatment and neglect
CPT/HCPCS: 36415; 80053; 81025; 86703; 86706; 87491; 87591; 87808; 96372; 99285; A9270; G0432; J0696

== ENCOUNTER 2022-06-13 13:49 | Emergency (ER) | payer MEDICARE, MEDICAID, SELFPAY ==
--- NOTE | ~2022-06-13 | CT_ITS ---
EXAMINATION: CT abdomen pelvis w con DATE: 06/13/2022 16:31 INDICATION: Left lower quadrant pain. Hypertension. TECHNIQUE: Computed tomography (CT) of the abdomen and pelvis was performed with 100 cc Omnipaque 350 intravenous contrast. The dose-length product was 639.35 mGy-cm. Automated exposure control and iter ative reconstruction technique were employed. COMPARISON: CT dated 05/28/2022. FINDINGS: Lung bases are unremarkable. Heart size normal. No significant pleural or pericardial effus ion. No significant vascular abnormality. No lymphadenopathy. Small low-density lesion right hepatic lobe, most likely benign cysts. The spleen, pancreas, adrenal glands and kidneys are unremarkable. No significant hydronephrosis. Bladder is decompressed. Status p ost recent appendectomy. No free air or free fluid. No evidence for diverticulitis. Gallbladder is co ntracted. IMPRESSION: 1. No acute abdominal abnormality. Reviewed, dictated and finalized at location A.
--- NOTE | 2022-06-13 14:05 | ED.ABDPAIN ---
HPI - Abdominal Pain General Chief Complaint: Abdominal Pain Stated Complaint: high blood pressure Time Seen by Provider: 06/13/22 13:55 History of Present Illness HPI narrative: 22-year-old female presents the emergency room for evaluation of left lower quadrant abdominal pain, and subjective high blood pressure. Patient states her blood pressure is very high , noting that it was 135/80 prior to arrival. Patient also states 2 weeks ago she had laparoscopic appendectomy, and is now having pain to her left lower quadrant where her scar is located. Patient is also complaining of nausea and occasional diarrhea. Denies fever Related Data Home Medications Medication Instructions Recorded Confirmed buspirone 5 mg tablet 5 mg PO BID 12/21/21 05/28/22 cholecalciferol (vitamin D3) 1,250 1,250 mcg PO MONTHLY 02/21/22 05/28/22 mcg (50,000 unit) tablet Lamictal PO DAILY 06/01/22 Allergies Allergy/AdvReac Type Severity Reaction Status Date / Time No Known Allergies Allergy Verified 06/11/22 13:49 Review of Systems Review of Systems: CONSTITUTIONAL: Denies fever, chills, or sweats. EYES: Denies visual changes, redness, or discharge. ENT: Denies rhinorrhea, congestion, sore throat, or otalgia. CARDIOVASCULAR: Denies chest pain, palpitations, or edema. RESPIRATORY: Denies cough or dyspnea. GASTROINTESTINAL: Reports abdominal pain and nausea GENITOURINARY: Denies dysuria or hematuria. SKIN: Denies rash or itching. MUSCULOSKELETAL: Denies back pain, joint pain, or myalgia. NEUROLOGIC: Denies headache, numbness, dizziness, or weakness. PSYCHIATRIC: Denies anxiety or depression. [facility] Past Medical History Medical History (Updated 06/13/22 @ 16:53 by Anand Wilkinson APRN) Anxiety Bipolar disorder Depression Initiation of Depo Provera Insertion of Nexplanon 03/2021 Obesity Polycystic ovarian syndrome Surgical History Surgical History (Updated 06/11/22 @ 13:49 by MILES Zimmerman) History of laparoscopic appendectomy 05/28/22 No pertinent past surgical history Family History Family History Father Hypertension Mother Hypertension Social History Social History (Updated 06/04/22 @ 14:03 by RYAN Avelar Smoking status: Former smoker Tobacco type: e-cigarettes/vaping Additional smoking assessment comments: Vapes daily with nicotine-containing substance for the past few months Alcohol intake: never Substance use: never Substance use type: does not use Additional occupation/education comments: Works in [employer] at [employer] Gender identity (if verbalized by the patient): Female Spiritual care concerns: No Exam Narrative: GENERAL: Well-appearing, well-nourished, no physical limitations, and in no acute distress. HEAD: Normocephalic, atraumatic. EYES: Conjunctivae normal, PERRLA and EOMI. CHEST: Clear to auscultation. No respiratory distress. No wheezes rales or rhonchi. No tenderness. HEART: Regular rate and rhythm. No murmur heard. Normal peripheral pulses. ABDOMEN: Soft, left lower quadrant tenderness,, nondistended, normal active bowel sounds. BACK: No CVA tenderness; EXTREMITIES: Normal range of motion. No edema. No clubbing or cyanosis SKIN: Warm, dry, no rash. No noted wounds NEURO: No focal deficits. Alert and oriented x3. MAEW. CN's II-XI intact bilaterally, normal gait PSYCH: Cooperative. Normal mood and affect. Course Vital Signs Vital signs: Vital Signs Temperature 36.7 C 06/13/22 14:06 Pulse Rate 108 H 06/13/22 14:06 Respiratory Rate 06/13/22 14:06 Blood Pressure 123/79 06/13/22 14:06 Pulse Oximetry 99 06/13/22 14:06 Oxygen Delivery Room Air 06/13/22 14:06 Temperature 36.7 C 06/13/22 14:06 Pulse Rate 108 H 06/13/22 14:06 Respiratory Rate 20 06/13/22 14:06 Blood Pressure 123/79 06/13/22 14:06 Pulse Oximetry 99 06/13/22 14:06 Oxygen Delivery Room Air
[2022-06-13 14:06] VITALS: BP 123/79; PULSE 108; RESP 20; TEMP 36.7; O2SAT 99
[2022-06-13] MEDS: ONDANSETRON INJ 4 MG/2 ML VIAL IV PUSH (14:31)
[2022-06-13] MEDS: SODIUM CHLORIDE 0.9% IV 1,000 ML 999 ML IV CONT (14:31)
[2022-06-13 15:10] LABS: Basophils Percent Auto 0.7 % (0.2-1.2); Eosinophils Absolute Auto 0.1 K/mm3 (0-0.3); Eosinophils Percent Auto 0.8 % (0-4.4); Hemoglobin 13.4 g/dL (12.0-15.0); Immature Granulocyte Absolute 0.03 K/mm3 (0.00-0.031); Immature Granulocyte Percent A 0.5 % (0-0.5); Lymphocytes Absolute Auto 1.94 K/mm3 (0.9-3.2); Lymphocytes Percent Auto 32.7 % (18.3-44.2); Mean Corpuscular HGB Conc 31.9 g/dl (32-36); Mean Platelet Volume 10.1 fl (7.4-10.4); Monocytes Absolute Auto 0.7 K/mm3 (0.1-0.6); Monocytes Percent Auto 11.6 % (2.6-8.5); Neutrophils Absolute Auto 3.2 K/mm3 (1.3-6.7); Neutrophils Percent Auto 53.7 % (45.5-73.1); Platelet Count Result 269 k/mm3 (150-375); Red Blood Count 4.47 M/mm3 (4.2-5.4); Red Cell Distribution Width 13.8 % (11.5-14.5); White Blood Count 5.9 K/mm3 (4.5-10.0)
[2022-06-13 15:33] LABS: Appearance Urine Clear (Clear); Bilirubin Urine Negative (Negative); Blood Urine Negative (Negative); Color Urine Yellow (Yellow); Glucose Urine UA Negative (Negative); Ketones Urine Trace mg/dL (Negative); Leukocyte Esterase Ur Trace LEU/UL (Negative); Nitrate Urine Negative (Negative); Protein Urine Negative (Negative); Specific Grav Ur >= 1.030 (1.001-1.035); Urobilinogen Urine 0.2 mg/dL (<2.0); pH Urine 5.5 (5.0-9.0)
[2022-06-13 15:38] LABS: Add Urine Microscopic? YES; Mucus Urine Rare /lpf; RBC Urine 0-2 /hpf (0-2); Squamous Epithelial Cell Urine Moderate /hpf (Few); WBC Urine 0-3 /hpf
[2022-06-13 16:02] LABS: Alanine Aminotransferase 40 U/L (6-35); Alkaline Phosphatase 52 U/L (38-126); Anion Gap 8 mmol/L (8-16); Aspartate Amino Transferase 40 U/L (14-36); Bilirubin,Total 0.4 mg/dL (0.2-1.3); Blood Urea Nitrogen 10 mg/dL (7-17); Carbon Dioxide 22 mmol/L (22-30); Chloride 107 mmol/L (98-107); Estimated CRCL calculation 116 ml/min; Estimated Glomerular Filt Rate > 60; Glucose 90 mg/dL (65-110); Lipase 154 U/L (23-300); Sodium 137 mmol/L (137-145)
[2022-06-13 17:17] VITALS: BP 132/68; PULSE 78; RESP 18; O2SAT 99
== END 2022-06-13 17:18 | disposition home or self-care (01) ==
PROVIDERS: Emergency Provider Nurse Practitioner Family; PCP Internal Medicine
DX: R10.32 Left lower quadrant pain (principal); F41.9 Anxiety disorder, unspecified; F31.9 Bipolar disorder, unspecified
CPT/HCPCS: 36415; 74177; 80053; 81001; 81025; 83690; 85025; 96361; 96374; 99284; J2405; J7030; Q9967

== ENCOUNTER 2022-07-05 10:46 | Outpatient (CLI) | payer MEDICARE, MEDICAID, SELFPAY ==
--- NOTE | ~2022-07-05 | US_ITS ---
EXAMINATION: US right upper quadrant DATE: 07/05/2022 11:36 INDICATION: Epigastric pain TECHNIQUE: Multiple grayscale and Doppler ultrasound images of the abdomen were obtained. COMPARISON: CT, 06/13/2022 FINDINGS: The head, body, and tail of the pancreas are normal. The liver is normal with normal echoge nicity and echotexture. No surface nodularity. Normal hepatopetal flow in the main portal vein. The g allbladder is normal with no abnormal wall thickening, pericholecystic fluid or stones. The normal co mmon bile duct measures 3 mm. There was no sonographic Hale sign. IMPRESSION: 1. Normal sonographic study of the gallbladder. Reviewed, dictated and finalized at location A.
== END 2022-07-05 10:47 | disposition home or self-care (01) ==
PROVIDERS: PCP Internal Medicine; Visit Provider Internal Medicine
DX: R10.13 Epigastric pain (principal)
CPT/HCPCS: 76705

== ENCOUNTER 2022-08-05 12:42 | Emergency (ER) | payer MEDICARE, MEDICAID, SELFPAY ==
--- NOTE | ~2022-08-05 | CT_ITS ---
EXAMINATION: CT abdomen pelvis w con DATE: 08/05/2022 14:36 INDICATION: nonlocalized abdominal pain TECHNIQUE: Computed tomography (CT) of the abdomen and pelvis was performed with 100 mL Omnipaque-350 intravenous contrast. Automated exposure control and iterative reconstruction technique were employe d. The dose-length product was 870.81 mGy-cm. COMPARISON: 06/13/2022. FINDINGS: Lower thorax: Dependent atelectasis. Liver: 9 mm right lobe cyst or hemangioma, stable Biliary/Gallbladder: Gallbladder is normal. No bile duct dilation. Pancreas: No mass or duct dilation. Spleen: Normal. Adrenals:No mass. Kidneys: No mass, stone, or hydronephrosis. GI tract: No small or large bowel dilation. Surgically absent appendix. Mesentery/Peritoneum: No ascites, mass, or free air. Retroperitoneum: No mass. Pelvis: Pelvic organs are within normal limits. Soft Tissues: Left lower quadrant subcutaneous scar, otherwise the soft tissues and body wall are unr emarkable. Bones: No acute osseous finding. IMPRESSION: No acute abdominopelvic process detected. Reviewed, dictated and finalized at location K.
--- NOTE | ~2022-08-05 | US_ITS ---
EXAMINATION: US pelvic complete w TV DATE: 08/05/2022 15:48 INDICATION: bilaral adenexal pain left greater than right TECHNIQUE: Multiple transabdominal and endovaginal sonographic images of the pelvis were obtained. COMPARISON: CT abdomen and pelvis 08/05/2022 FINDINGS: Uterus: 5.9 x 2.5 x 2.7 cm. Endometrial complex measures 4 mm. Right Ovary: 3.0 x 2.1 x 3.0 cm. Vascular flow is present. Left Ovary: 3.9 x 2.3 x 2.9 cm. Vascular flow is present. There is no free fluid in the pelvis. IMPRESSION: Normal pelvic sonogram findings. Reviewed, dictated and finalized at location K.
[2022-08-05 12:45] VITALS: BP 136/82; PULSE 103; RESP 20; TEMP 36.8; O2SAT 100
[2022-08-05 13:31] LABS: Basophils Percent Auto 0.5 % (0.2-1.2); Eosinophils Percent Auto 0.5 % (0-4.4); Hematocrit 41.3 % (37.0-47.0); Immature Granulocyte Absolute 0.03 K/mm3 (0.00-0.031); Immature Granulocyte Percent A 0.5 % (0-0.5); Lymphocytes Absolute Auto 2.12 K/mm3 (0.9-3.2); Lymphocytes Percent Auto 35.3 % (18.3-44.2); Mean Corpuscular HGB Conc 33.9 g/dl (32-36); Mean Corpuscular Hemoglobin 30.6 pg (26-34); Mean Corpuscular Volume 90.4 fl (80-100); Mean Platelet Volume 9.8 fl (7.4-10.4); Monocytes Absolute Auto 0.5 K/mm3 (0.1-0.6); Neutrophils Absolute Auto 3.3 K/mm3 (1.3-6.7); Neutrophils Percent Auto 54.2 % (45.5-73.1); Platelet Count Result 243 k/mm3 (150-375); Red Blood Count 4.57 M/mm3 (4.2-5.4); Red Cell Distribution Width 12.9 % (11.5-14.5)
[2022-08-05 13:34] LABS: Appearance Urine Clear (Clear); Bilirubin Urine Negative (Negative); Blood Urine Negative (Negative); Color Urine Yellow (Yellow); Glucose Urine UA Negative (Negative); Ketones Urine Negative (Negative); Leukocyte Esterase Ur Negative LEU/UL (Negative); Nitrate Urine Negative (Negative); Protein Urine Negative (Negative); Specific Grav Ur 1.025 (1.001-1.035); Urobilinogen Urine 0.2 mg/dL (<2.0); pH Urine 5.5 (5.0-9.0)
[2022-08-05 13:47] LABS: Add Urine Microscopic? NO
[2022-08-05 13:48] LABS: Alanine Aminotransferase 32 U/L (6-35); Albumin Level 4.6 g/dL (3.5-5.1); Alkaline Phosphatase 57 U/L (38-126); Anion Gap 9 mmol/L (8-16); Aspartate Amino Transferase 31 U/L (14-36); Bilirubin,Total 0.5 mg/dL (0.2-1.3); Blood Urea Nitrogen 11 mg/dL (7-17); Calcium 9.1 mg/dL (8.4-10.2); Carbon Dioxide 22 mmol/L (22-30); Chloride 107 mmol/L (98-107); Estimated CRCL calculation 101 ml/min; Estimated Glomerular Filt Rate > 60; Glucose 86 mg/dL (65-110); Potassium 3.9 mmol/L (3.4-5.0); Sodium 138 mmol/L (137-145)
[2022-08-05] MEDS: HYDROmorphone HCL INJ (*CRX) 1 MG/ML SYR IV PUSH (14:09)
[2022-08-05] MEDS: ONDANSETRON INJ 4 MG/2 ML VIAL IV PUSH (14:09)
--- NOTE | 2022-08-05 17:27 | ED.GENADULT ---
HPI - General Adult General Chief complaint: Abdominal Pain Stated complaint: back and abd pain Time Seen by Provider: 08/05/22 12:51 History of Present Illness HPI narrative: Patient is a 22-year-old female who presents ER with abdominal pain. Ongoing over the last 2 weeks. Lower abdomen and left side. Radiates to the back. Worse with movements. Denies urinary frequency urgency or dysuria. No diarrhea. Has not been constipated. Has history of PCOS. No alleviating factors. Related Data Home Medications Medication Instructions Recorded Confirmed buspirone 5 mg tablet 5 mg PO BID 12/21/21 06/18/22 cholecalciferol (vitamin D3) 1,250 1,250 mcg PO MONTHLY 02/21/22 06/18/22 mcg (50,000 unit) tablet Lamictal PO DAILY 06/01/22 06/18/22 Allergies Allergy/AdvReac Type Severity Reaction Status Date / Time No Known Allergies Allergy Verified 06/11/22 13:49 Review of Systems Review of Systems: All systems reviewed & are unremarkable except as noted in HPI and below Constitutional: Constitutional: Denies chills, Denies fatigue and Denies fever(s) ENT: Denies nasal congestion Cardiovascular: Cardiovascular: Denies chest pain, Denies rapid heart rate and Denies radiating jaw, neck or arm pain Respiratory: Respiratory: Denies cough and Denies dyspnea Gastrointestinal: Gastrointestinal: Reports abdominal pain, Denies constipation, Denies diarrhea, Denies nausea and Denies vomiting Genitourinary: Genitourinary: Denies abnormal vaginal bleeding, Denies nocturia, Denies dysuria and Denies flank pain Musculoskeletal: Musculoskeletal: Reports back pain and Denies arthralgias [facility] Past Medical History Medical History (Updated 08/05/22 @ 17:47 by Devon Lynn MD) Anxiety Bipolar disorder Depression Initiation of Depo Provera Insertion of Nexplanon 03/2021 Obesity Polycystic ovarian syndrome Surgical History Surgical History (Updated 06/11/22 @ 13:49 by MILES Zimmerman) History of laparoscopic appendectomy 05/28/22 No pertinent past surgical history Family History Family History Father Hypertension Mother Hypertension Social History Social History (Updated 06/04/22 @ 14:03 by Tanisha Nix MA) Smoking status: Former smoker Tobacco type: e-cigarettes/vaping Additional smoking assessment comments: Vapes daily with nicotine-containing substance for the past few months Alcohol intake: never Substance use: never Substance use type: does not use Additional occupation/education comments: Works in [employer] at [employer] Gender identity (if verbalized by the patient): Female Spiritual care concerns: No Exam Narrative: GENERAL: Well-appearing, well-nourished, and in no acute distress. HEAD: Normocephalic, atraumatic. EYES: PERRL and EOMI. ENT: Mucous membranes moist. CHEST: Clear to auscultation. No respiratory distress. HEART: Regular rate and rhythm. Normal peripheral pulses. ABDOMEN: Soft, bilateral lower quadrant tenderness and left upper quadrant tenderness with voluntary guarding, nondistended, normal active bowel sounds. EXTREMITIES: Normal range of motion. No edema. SKIN: Warm, dry, no rash. NEURO: Alert and oriented x3. Course Course Emergency Course: Patient resting comfortably. Informed of results. Discharge home. Vital Signs Vital signs: Vital Signs Temperature 98.3 F 08/05/22 12:45 Pulse Rate 103 H 08/05/22 12:45 Respiratory Rate 20 08/05/22 12:45 Blood Pressure 136/82 08/05/22 12:45 Pulse Oximetry 100 08/05/22 12:45 Oxygen Delivery Room Air 08/05/22 12:45 Temperature 98.3 F 08/05/22 12:45 Pulse Rate 103 H 08/05/22 12:45 Respiratory Rate 20 08/05/22 12:45 Blood Pressure 136/82 08/05/22 12:45 Pulse Oximetry 100 08/05/22 12:45 Oxygen Delivery Room Air 08/05/22 12:45 Medical Decision Making Vital Signs Vital Signs: Vital Signs
[2022-08-05 17:58] VITALS: BP 124/68; PULSE 72; RESP 18; O2SAT 98
== END 2022-08-05 18:00 | disposition home or self-care (01) ==
PROVIDERS: Emergency Provider Emergency Medicine; PCP Internal Medicine
DX: R10.32 Left lower quadrant pain (principal); E28.2 Polycystic ovarian syndrome; F31.9 Bipolar disorder, unspecified; F41.9 Anxiety disorder, unspecified; E66.9 Obesity, unspecified; Z68.33 Body mass index [BMI] 33.0-33.9, adult; F17.290 Nicotine dependence, other tobacco product, uncomplicated
CPT/HCPCS: 36415; 74177; 76830; 76856; 80053; 81003; 81025; 85025; 96374; 96375; 99284; J1170; J2405; Q9967

== ENCOUNTER 2022-08-23 09:03 | Outpatient (CLI) | payer MEDICARE, MEDICAID, SELFPAY ==
--- NOTE | ~2022-08-23 | US_ITS ---
EXAMINATION: US thyroid DATE: 08/23/2022 09:35 INDICATION: Goiter. TECHNIQUE: Multiple ultrasound images of the thyroid were obtained. COMPARISON: None. FINDINGS: The right thyroid lobe measures 6.2 x 2.0 x 2.3 cm. The left thyroid lobe measures 6.6 x 2.1 x 2.4 c m. In the left thyroid lobe, there is a 2.1 cm mixed cystic and solid, isoechoic, wider than tall no dule with smooth margin without echogenic foci (TI-RADS TR2). In the left thyroid lobe, there is a 1. 9 cm solid, hypoechoic, taller than wide nodule with lobulated margin without echogenic foci (TR5). IMPRESSION: 1. Multinodular goiter. Ultrasound-guided fine-needle aspiration of the 1.9 cm left thyroid nodule is recommended. Reviewed, dictated and finalized at location A.
== END 2022-08-23 09:04 | disposition home or self-care (01) ==
PROVIDERS: PCP Internal Medicine; Visit Provider Internal Medicine Endocrinology, Diabetes & Metabolism
DX: E04.2 Nontoxic multinodular goiter (principal)
CPT/HCPCS: 76536

== ENCOUNTER 2022-09-03 09:21 | Outpatient (CLI) | payer MEDICARE, MEDICAID, SELFPAY ==
--- NOTE | ~2022-09-03 | US_ITS ---
EXAMINATION: US FNA w image guidance DATE: 09/03/2022 10:39 INDICATION: Left thyroid nodule. TECHNIQUE: The procedure and its benefits and risks were discussed with the patient. Risks specifically discusse d included bleeding. The patient verbalized understanding of the risks and agreed to proceed. The nec k was prepped and draped in the usual sterile manner. 6 mL 1% lidocaine was used for local anesthesi a. The patient then developed hoarseness and coughing and complained of dizziness. A rapid response was called. We sat the patient upright on the stretcher. The patient was put on oxygen by nasal can nula and attached to a monitor. The patient vomited several times. Dr. Anderson assumed care at this poin t in the ultrasound department. The patient was soon transferred to the emergency department. FINDINGS: Grayscale ultrasound images demonstrate nodules in the left thyroid lobe. IMPRESSION: 1. Hoarseness, coughing, vomiting, and dizziness after left neck subcutaneous and intramuscular injec tion of 6 mL 1% lidocaine. The patient was transferred to the emergency department. 2. No biopsy samples could be taken. Reviewed, dictated and finalized at location A. IMPRESSION: 1. Hoarseness, coughing, vomiting, and dizziness after left neck subcutaneous a nd intramuscular injection of 6 mL 1% lidocaine. The patient was transferred to the emergency department. 2. No biopsy samples could be taken.
== END 2022-09-03 09:22 | disposition home or self-care (01) ==
PROVIDERS: PCP Internal Medicine; Visit Provider Internal Medicine
DX: E04.2 Nontoxic multinodular goiter (principal)
CPT/HCPCS: 10005; J0153; J0171

== ENCOUNTER 2022-09-03 10:29 | Emergency (ER) | payer MEDICARE, MEDICAID, SELFPAY ==
[2022-09-03] VITALS (8 sets, daily range): BP systolic 105–144; BP diastolic 55–102; PULSE 95–119; RESP 18–30; TEMP 37.2; O2SAT 98–100
--- NOTE | ~2022-09-03 | XR_ITS ---
EXAMINATION: XR chest 1V portable DATE: 09/03/2022 11:11 INDICATION: Dyspnea following lidocaine injection TECHNIQUE: frontal view of the chest was obtained. COMPARISON: Chest radiograph dated 12/21/2021 FINDINGS: The lungs remain clear with no focal airspace opacities, pulmonary edema, pleural effusion or pneumot horax. The cardiomediastinal silhouette is normal. Visualized bones and soft tissues are unremarkable . IMPRESSION: 1. No acute cardiopulmonary disease. Reviewed, dictated and finalized at location B.
[2022-09-03] MEDS: SODIUM CHLORIDE 0.9% IV 2,000 ML 999 ML IV CONT (10:49)
[2022-09-03] MEDS: diphenhydrAMINE HCl INJ 50 MG/ML VIAL IV PUSH (10:50)
[2022-09-03] MEDS: FAMOTIDINE 20 MG/2 ML VIAL 40 MG IV PUSH (10:51)
[2022-09-03 11:07] LABS: Basophils Percent Auto 0.5 % (0.2-1.2); Eosinophils Absolute Auto 0.1 K/mm3 (0-0.3); Eosinophils Percent Auto 2.2 % (0-4.4); Hematocrit 42.2 % (37.0-47.0); Immature Granulocyte Absolute 0.03 K/mm3 (0.00-0.031); Immature Granulocyte Percent A 0.5 % (0-0.5); Lymphocytes Absolute Auto 1.85 K/mm3 (0.9-3.2); Mean Corpuscular HGB Conc 33.2 g/dl (32-36); Mean Corpuscular Volume 90.6 fl (80-100); Mean Platelet Volume 9.6 fl (7.4-10.4); Monocytes Absolute Auto 1.3 K/mm3 (0.1-0.6); Monocytes Percent Auto 19.6 % (2.6-8.5); Neutrophils Absolute Auto 3.1 K/mm3 (1.3-6.7); Neutrophils Percent Auto 48.2 % (45.5-73.1); Platelet Count Result 209 k/mm3 (150-375); Red Blood Count 4.66 M/mm3 (4.2-5.4); Red Cell Distribution Width 12.3 % (11.5-14.5); White Blood Count 6.4 K/mm3 (4.5-10.0)
[2022-09-03 11:17] LABS: Alanine Aminotransferase 24 U/L (6-35); Alkaline Phosphatase 57 U/L (38-126); Anion Gap 17 mmol/L (8-16); Aspartate Amino Transferase 28 U/L (14-36); Bilirubin,Total 0.6 mg/dL (0.2-1.3); Blood Urea Nitrogen 9 mg/dL (7-17); Calcium 9.1 mg/dL (8.4-10.2); Carbon Dioxide 21 mmol/L (22-30); Chloride 103 mmol/L (98-107); Estimated CRCL calculation 96 ml/min; Estimated Glomerular Filt Rate > 60; Glucose 92 mg/dL (65-110); Lipase 118 U/L (23-300); Magnesium 2.2 mg/dL (1.6-2.3); Potassium 4.3 mmol/L (3.4-5.0); Sodium 141 mmol/L (137-145)
[2022-09-03 11:29] LABS: Troponin I 0.012 ng/mL (0.000-0.034); Troponin I 0.013 ng/mL (0.000-0.034)
--- NOTE | 2022-09-03 11:33 | ED.GENADULT ---
HPI - General Adult General Chief complaint: Shortness of Breath/Dyspnea Stated complaint: allergic reaction Time Seen by Provider: 09/03/22 10:30 History of Present Illness HPI narrative: This is a 22-year-old female who was in the hospital for an FNA of her thyroid. After she was injected with lidocaine she became short of breath, developed a hoarse voice, had nausea vomiting and wheezing. A rapid response was called. patient was treated for anaphylaxis with epi and then transferred to the emergency department. Related Data Home Medications Medication Instructions Recorded Confirmed buspirone 5 mg tablet 5 mg PO BID 12/21/21 06/18/22 cholecalciferol (vitamin D3) 1,250 1,250 mcg PO MONTHLY 02/21/22 06/18/22 mcg (50,000 unit) tablet Lamictal PO DAILY 06/01/22 06/18/22 Allergies Allergy/AdvReac Type Severity Reaction Status Date / Time No Known Allergies Allergy Verified 08/30/22 16:09 Review of Systems Review of Systems: CONSTITUTIONAL: Denies night sweats. EYES: No eye pain ENT: Denies rhinorrhea CARDIOVASCULAR: Denies palpitations RESPIRATORY: Denies hemoptysis GASTROINTESTINAL: Denies hematemesis GENITOURINARY: Denies hematuria. SKIN: Denies rash MUSCULOSKELETAL: Denies myalgia. NEUROLOGIC: Denies weakness. PSYCHIATRIC: Denies delusions PMFSH Past Medical History Medical History Anxiety Bipolar disorder Depression Initiation of Depo Provera Insertion of Nexplanon 03/2021 Obesity Polycystic ovarian syndrome Surveillance for Depo-Provera contraception Surgical History Surgical History History of laparoscopic appendectomy 05/28/22 No pertinent past surgical history Family History Family History Father Hypertension Mother Hypertension Social History Social History Smoking status: Former smoker Tobacco type: e-cigarettes/vaping Additional smoking assessment comments: Vapes daily with nicotine-containing substance for the past few months Alcohol intake: never Substance use: never Substance use type: does not use Additional occupation/education comments: Works in [employer] Gender identity (if verbalized by the patient): Female Spiritual care concerns: No Exam Narrative: APPEARANCE: Patient is uncomfortable, she is vomiting intermittently Head: no visible swelling of the lips tongue or uvula EYES: PERRLA/EOMI, NOSE: Normal no drainage NECK: Supple, Trachea midline RESPIRATORY: scattered expiratory wheezing CARDIOVASCULAR: S1S2 appreciated, tachycardic ABDOMINAL: Soft, nontender, nondistended, MUSCULOSKELETAl: No obvious deformities NEURO: Alert. Moving 4/4 extremities SKIN:: Warm, dry. Normal color PSYCHIATRIC: Normal affect Course Vital Signs Vital signs: Vital Signs Temperature 98.9 F 09/03/22 10:32 Pulse Rate 109 H 09/03/22 10:32 Respiratory Rate 30 H 09/03/22 10:32 Blood Pressure 123/61 09/03/22 10:32 Pulse Oximetry 99 09/03/22 10:32 Oxygen Delivery Nasal Cannula 09/03/22 10:32 Oxygen Flow Rate 2 09/03/22 10:32 Temperature 98.9 F 09/03/22 10:32 Pulse Rate 95 09/03/22 13:00 Respiratory Rate 18 09/03/22 13:00 Blood Pressure 112/78 09/03/22 13:00 Pulse Oximetry 98 09/03/22 13:01 Oxygen Delivery Room Air 09/03/22 13:01 Oxygen Flow Rate 2 09/03/22 10:40 Medical Decision Making MDM Narrative Medical decision making narrative: this 22-year-old female who had a poor reaction during and fine-needle aspiration. It was after she was injected with lidocaine. Patient has long been injected with lidocaine 1 time before did not have reaction at that time. Patient was treated with epi, Benadryl, Pepcid, dexamethasone and nebulizers. She transferred the ED where
[2022-09-03] MEDS: ALBUTEROL SULFATE NEB 2.5 MG/3 ML INH 5 MG INHALATION (11:50)
[2022-09-03] MEDS: IPRATROPIUM BR 0.02% INH SOLN 0.5 MG/2.5 ML VIAL INHALATION (11:50)
[2022-09-03] MEDS: DEXAMETHASONE SOD PHOS INJ 4 MG/ML VIAL 12 MG IV PUSH (12:52)
[2022-09-03 13:12] LABS: INR 1.2; Prothrombin Time 14.4 Seconds (11.1-14.7)
[2022-09-03 13:13] LABS: Partial Thromboplastin Time 29.5 SECONDS (22.3-36.8)
== END 2022-09-03 15:14 | disposition home or self-care (01) ==
PROVIDERS: Emergency Provider Emergency Medicine; PCP Internal Medicine
DX: T78.2XXA Anaphylactic shock, unspecified, initial encounter (principal); E28.2 Polycystic ovarian syndrome; F41.9 Anxiety disorder, unspecified; F31.9 Bipolar disorder, unspecified; E66.9 Obesity, unspecified; Z68.33 Body mass index [BMI] 33.0-33.9, adult; F17.290 Nicotine dependence, other tobacco product, uncomplicated; R06.02 Shortness of breath
CPT/HCPCS: 10005; 36415; 71045; 80053; 83690; 83735; 84484; 85025; 85610; 85730; 94640; 96361; 96374; 96375; 99284; J0153; J0171; J1100; J1200; J7030

== ENCOUNTER 2022-10-05 09:13 | Outpatient (CLI) | payer MEDICARE, MEDICAID, SELFPAY ==
--- NOTE | ~2022-10-05 | US_ITS ---
EXAMINATION: US FNA w image guidance DATE: 10/05/2022 10:10 INDICATION: Multinodular goiter. TECHNIQUE: The procedure and its benefits and risks were discussed with the patient. Risks specifically discusse d included bleeding. The patient verbalized understanding of the risks and agreed to proceed. The nec k was prepped and draped in the usual sterile manner. 2% chloroprocaine was used for local anesthesia . 6 passes were made with a 25G needle into the lesion under ultrasound guidance. There were no imm ediate complications. FINDINGS: Grayscale ultrasound images demonstrate needles advanced into a 2.2 cm nodule in inferior left thyroi d lobe for biopsy. IMPRESSION: 1. Ultrasound-guided fine needle aspiration of a left thyroid nodule. Reviewed, dictated and finalized at location A. 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
== END 2022-10-05 09:14 | disposition home or self-care (01) ==
PROVIDERS: PCP Internal Medicine; Visit Provider Internal Medicine
DX: E04.2 Nontoxic multinodular goiter (principal)
CPT/HCPCS: 10005; 88173; 88305; J2400

== ENCOUNTER 2022-11-29 06:46 | Emergency (ER) | payer MEDICARE, MEDICAID, SELFPAY ==
--- NOTE | ~2022-11-29 | XR_ITS ---
Right wrist Technique: PA, oblique, lateral, and ulnar deviation views were obtained. Clinical History: Pain Findings: No acute fracture or dislocation is seen. Osseous alignment is anatomic. Joint spaces are p reserved. Soft tissues are unremarkable. Impression: Unremarkable right wrist radiographs. Reviewed, dictated and finalized at location . 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
--- NOTE | ~2022-11-29 | XR_ITS ---
EXAMINATION: XR hand RT min 3V DATE: 11/29/2022 07:29 INDICATION: Right hand injury. TECHNIQUE: 3 views of right hand were obtained. COMPARISON: None. FINDINGS: Bone alignment is normal. No fracture. Joint spaces are normal. IMPRESSION: 1. Normal right hand. Reviewed, dictated and finalized at location A. 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 Normal right hand.
[2022-11-29 06:50] VITALS: BP 139/82; PULSE 95; RESP 14; TEMP 36.7; O2SAT 100
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
[2022-11-29 08:16] VITALS: BP 118/78; PULSE 82; RESP 16; TEMP 36.3; O2SAT 100
== END 2022-11-29 08:18 | disposition home or self-care (01) ==
PROVIDERS: Emergency Provider Emergency Medicine; PCP Internal Medicine
DX: S60.211A Contusion of right wrist, initial encounter (principal); F41.9 Anxiety disorder, unspecified; F31.9 Bipolar disorder, unspecified; E28.2 Polycystic ovarian syndrome; R73.03 Prediabetes; E66.9 Obesity, unspecified; Z68.34 Body mass index [BMI] 34.0-34.9, adult; F17.290 Nicotine dependence, other tobacco product, uncomplicated; Y04.2XXA Assault by strike against or bumped into by another person, initial encounter
CPT/HCPCS: 73110; 73130; 99283

== ENCOUNTER 2022-12-07 06:45 | Emergency (ER) | payer MEDICARE, MEDICAID, SELFPAY ==
[2022-12-07] VITALS (9 sets, daily range): BP systolic 126–142; BP diastolic 72–86; PULSE 70–95; RESP 14–20; TEMP 36.9; O2SAT 100
--- NOTE | ~2022-12-07 | US_ITS ---
Limited Abdominal Sonogram: Real-time sonographic imaging of the right upper quadrant was performed. Clinical History: Right upper quadrant pain Findings: The liver appears normal with no evidence of solid mass lesion or bile duct dilatation. Sm all hepatic cyst noted. Main portal vein demonstrates normal direction of flow. The gallbladder is we ll distended, and appears normal with no evidence of gallstone or wall thickening. The common bile du ct measures 3 mm. The visualized pancreas, aorta, and IVC are unremarkable. Impression: No significant abnormality seen. Reviewed, dictated and finalized at location M. ET TRIMMER Impression: No significant abnormality seen.
[2022-12-07 07:08] LABS: Appearance Urine Clear (Clear); Bilirubin Urine Negative (Negative); Blood Urine Negative (Negative); Color Urine Yellow (Yellow); Glucose Urine UA Negative (Negative); Ketones Urine Negative (Negative); Leukocyte Esterase Ur Trace LEU/UL (Negative); Nitrate Urine Negative (Negative); Protein Urine Negative (Negative); Specific Grav Ur 1.025 (1.001-1.035); Urobilinogen Urine 0.2 mg/dL (<2.0); pH Urine 6.5 (5.0-9.0)
[2022-12-07 07:18] LABS: Alanine Aminotransferase 24 U/L (6-35); Albumin Level 4.2 g/dL (3.5-5.1); Alkaline Phosphatase 51 U/L (38-126); Anion Gap 7 mmol/L (8-16); Aspartate Amino Transferase 29 U/L (14-36); Bilirubin,Total 0.7 mg/dL (0.2-1.3); Blood Urea Nitrogen 11 mg/dL (7-17); Calcium 8.7 mg/dL (8.4-10.2); Carbon Dioxide 22 mmol/L (22-30); Chloride 109 mmol/L (98-107); Estimated CRCL calculation 116 ml/min; Estimated Glomerular Filt Rate > 60; Glucose 90 mg/dL (65-110); Lipase 108 U/L (23-300); Sodium 138 mmol/L (137-145)
[2022-12-07 07:26] LABS: Bacteria Urine Trace /hpf; Mucus Urine Rare /lpf; RBC Urine 0-2 /hpf (0-2); Squamous Epithelial Cell Urine Moderate /hpf (Few); Transitional Epi Cells Urine Rare /hpf (None Seen); WBC Urine 0-3 /hpf
[2022-12-07 07:27] LABS: Basophils Percent Auto 0.6 % (0.2-1.2); Eosinophils Absolute Auto 0.1 K/mm3 (0-0.3); Hematocrit 42.1 % (37.0-47.0); Hemoglobin 14.5 g/dL (12.0-15.0); Immature Granulocyte Absolute 0.01 K/mm3 (0.00-0.031); Immature Granulocyte Percent A 0.2 % (0-0.5); Lymphocytes Absolute Auto 1.76 K/mm3 (0.9-3.2); Lymphocytes Percent Auto 35.3 % (18.3-44.2); Mean Corpuscular HGB Conc 34.4 g/dl (32-36); Mean Corpuscular Hemoglobin 30.6 pg (26-34); Mean Corpuscular Volume 88.8 fl (80-100); Mean Platelet Volume 9.8 fl (7.4-10.4); Monocytes Absolute Auto 0.5 K/mm3 (0.1-0.6); Monocytes Percent Auto 9.6 % (2.6-8.5); Neutrophils Absolute Auto 2.7 K/mm3 (1.3-6.7); Neutrophils Percent Auto 53.3 % (45.5-73.1); Platelet Count Result 236 k/mm3 (150-375); Red Blood Count 4.74 M/mm3 (4.2-5.4); Red Cell Distribution Width 12.7 % (11.5-14.5)
[2022-12-07 07:28] LABS: Add Urine Microscopic? YES
--- NOTE | 2022-12-07 07:38 | PC.NURSE ---
Patient at ultrasound at this time.
[2022-12-07] MEDS: MORPHINE SULFATE (*CRX) 4 MG/ML INJ IV PUSH (07:46)
[2022-12-07] MEDS: ONDANSETRON INJ 4 MG/2 ML VIAL IV PUSH (07:46)
--- NOTE | 2022-12-07 08:34 | ED.ABDPAIN ---
HPI - Abdominal Pain General Chief Complaint: Abdominal Pain Stated Complaint: abd pain Time Seen by Provider: 12/07/22 06:57 History of Present Illness HPI narrative: Patient is a 22-year-old female who presents ER with right upper quadrant abdominal pain. Ongoing for last couple days. Pain radiates to the right flank. Worse with eating and drinking. No fevers or chills or sweats. No alleviating factors. Denies chest pain or chest pressure. Pain resolves with time. No urinary frequency urgency or dysuria. No known gallstones. Related Data Home Medications Medication Instructions Recorded Confirmed buspirone 5 mg tablet 5 mg PO BID 12/21/21 10/18/22 cholecalciferol (vitamin D3) 1,250 1,250 mcg PO MONTHLY 02/21/22 10/18/22 mcg (50,000 unit) tablet Lamictal PO DAILY 06/01/22 10/18/22 Allergies Allergy/AdvReac Type Severity Reaction Status Date / Time diphenhydramine Allergy Severe Anaphylactic Verified 12/07/22 06:52 [From Benadryl] Shock lidocaine Allergy Severe Anaphylactic Verified 12/07/22 06:52 Shock Review of Systems Review of Systems: All systems reviewed & are unremarkable except as noted in HPI and below Constitutional: Constitutional: Denies chills, Denies fatigue and Denies fever(s) Cardiovascular: Cardiovascular: Denies chest pain and Denies rapid heart rate Respiratory: Respiratory: Denies cough, Denies dyspnea and Denies wheezing Gastrointestinal: Gastrointestinal: Reports abdominal pain, Denies diarrhea, Reports nausea and Denies vomiting Genitourinary: Genitourinary: Denies hematuria, Denies nocturia and Denies dysuria [facility] Past Medical History Medical History Anxiety Bipolar disorder Depression Initiation of Depo Provera Insertion of Nexplanon 03/2021 Obesity Polycystic ovarian syndrome Pre-diabetes Surveillance for Depo-Provera contraception Surgical History Surgical History History of laparoscopic appendectomy 05/28/22 No pertinent past surgical history Family History Family History Father Hypertension Mother Hypertension Social History Social History (Reviewed 11/29/22 @ 07:21 by JUS Domínguez Smoking status: Former smoker Tobacco type: e-cigarettes/vaping Additional smoking assessment comments: Vapes daily with nicotine-containing substance for the past few months Alcohol intake: never Substance use: never Substance use type: does not use Living arrangements: with family Occupation/Education: occupation Additional occupation/education comments: Works in [employer] at [employer] Gender identity (if verbalized by the patient): Female Spiritual care concerns: No Exam Narrative: GENERAL: Well-appearing, well-nourished, and in no acute distress. HEAD: Normocephalic, atraumatic. EYES: PERRL and EOMI. ENT: Mucous membranes moist. CHEST: Clear to auscultation. No respiratory distress. HEART: Regular rate and rhythm. Normal peripheral pulses. ABDOMEN: Soft, mild discomfort to the right upper quadrant without guarding, negative Hale sign, nondistended, normal active bowel sounds. EXTREMITIES: Normal range of motion. No edema. SKIN: Warm, dry, no rash. NEURO: Alert and oriented x3. PSYCH: Normal mood and affect. Course Course Emergency Course: Pain and nausea resolved with morphine and Zofran. Patient informed of lab results which showed no signs of infection or elevation liver function test indicating obstruction of the common bile duct. Ultrasound without gallstones/sludge. Patient last ate last night so distention likely related to fasting. Recommend follow-up with PCP and discussed possible need for outpatient HIDA scan should symptoms continue. Vital Signs Vital signs: Vital Signs Temperature 98.5 F 12/07/22 06:47 Pulse Rate 95 12/07/22
== END 2022-12-07 09:27 | disposition home or self-care (01) ==
PROVIDERS: Emergency Medicine; Emergency Provider Emergency Medicine; PCP Internal Medicine
DX: R10.11 Right upper quadrant pain (principal); E28.2 Polycystic ovarian syndrome; R73.03 Prediabetes; F41.9 Anxiety disorder, unspecified; F31.9 Bipolar disorder, unspecified; E66.9 Obesity, unspecified; Z68.34 Body mass index [BMI] 34.0-34.9, adult; F17.290 Nicotine dependence, other tobacco product, uncomplicated
CPT/HCPCS: 36415; 76705; 80053; 81001; 81025; 83690; 85025; 96374; 96375; 99284; J2270; J2405

== ENCOUNTER 2022-12-24 11:38 | Outpatient (CLI) | payer MEDICARE, MEDICAID, SELFPAY ==
--- NOTE | ~2022-12-24 | NM_ITS ---
EXAMINATION: NM hepatobiliary wo pharm DATE: 12/24/2022 14:41 INDICATION: Abdominal pain. COMPARISON: Ultrasound 12/07/2022 TECHNIQUE: 5 mCi Tc-99m mebrofenin (Choletec) was administered intravenously. Scintigraphic images o f the abdomen were obtained for one hour. Then, the patient drank 8 oz Ensure, and imaging was contin ued for 60 minutes. FINDINGS: There is normal clearance of radiotracer from the blood pool. There is homogeneous tracer u ptake by the liver. Activity progresses to the bowel and gallbladder. Gallbladder ejection fraction (GBEF) was 28%. Note that with this technique, normal GBEF >= 33%. IMPRESSION: 1. Low gallbladder ejection fraction, consistent with gallbladder dysfunction and/or chronic cholecy stitis. Reviewed, dictated and finalized at location A. MANAGER IMPRESSION: 1. Low gallbladder ejection fraction, consistent with gallbladder dysfunction and/or chronic cholecystitis.
== END 2022-12-24 11:39 | disposition home or self-care (01) ==
PROVIDERS: PCP Internal Medicine; Visit Provider Internal Medicine
DX: R10.9 Unspecified abdominal pain (principal)
CPT/HCPCS: 78226; A9537

== ENCOUNTER 2022-12-26 12:20 | Emergency (ER) | payer MEDICARE, MEDICAID, SELFPAY ==
[2022-12-26 12:25] VITALS: BP 144/85; PULSE 104; RESP 18; TEMP 36.9; O2SAT 100
[2022-12-26 15:00] VITALS: BP 138/70; PULSE 74; RESP 16; O2SAT 97
[2022-12-26 15:06] LABS: Basophils Absolute Auto 0.1 K/mm3 (0.0-0.1); Basophils Percent Auto 0.8 % (0.2-1.2); Eosinophils Percent Auto 0.5 % (0-4.4); Hemoglobin 15.1 g/dL (12.0-15.0); Immature Granulocyte Absolute 0.03 K/mm3 (0.00-0.031); Immature Granulocyte Percent A 0.5 % (0-0.5); Lymphocytes Absolute Auto 2.06 K/mm3 (0.9-3.2); Lymphocytes Percent Auto 31.1 % (18.3-44.2); Mean Corpuscular HGB Conc 34.3 g/dl (32-36); Mean Corpuscular Volume 87.5 fl (80-100); Mean Platelet Volume 9.6 fl (7.4-10.4); Monocytes Absolute Auto 0.4 K/mm3 (0.1-0.6); Monocytes Percent Auto 6.3 % (2.6-8.5); Neutrophils Percent Auto 60.8 % (45.5-73.1); Platelet Count Result 255 k/mm3 (150-375); Red Blood Count 5.03 M/mm3 (4.2-5.4); Red Cell Distribution Width 12.6 % (11.5-14.5); White Blood Count 6.6 K/mm3 (4.5-10.0)
[2022-12-26 15:17] LABS: Alanine Aminotransferase 129 U/L (6-35); Albumin Level 4.8 g/dL (3.5-5.1); Alkaline Phosphatase 57 U/L (38-126); Anion Gap 6 mmol/L (8-16); Aspartate Amino Transferase 76 U/L (14-36); Bilirubin,Total 0.5 mg/dL (0.2-1.3); Blood Urea Nitrogen 10 mg/dL (7-17); Calcium 8.9 mg/dL (8.4-10.2); Carbon Dioxide 26 mmol/L (22-30); Chloride 105 mmol/L (98-107); Estimated CRCL calculation 113 ml/min; Estimated Glomerular Filt Rate > 60; Glucose 85 mg/dL (65-110); Lipase 119 U/L (23-300); Potassium 3.9 mmol/L (3.4-5.0); Sodium 137 mmol/L (137-145)
[2022-12-26 15:20] LABS: Appearance Urine Clear (Clear); Bilirubin Urine Negative (Negative); Blood Urine Negative (Negative); Color Urine Yellow (Yellow); Glucose Urine UA Negative (Negative); Ketones Urine Trace mg/dL (Negative); Leukocyte Esterase Ur Negative LEU/UL (Negative); Nitrate Urine Negative (Negative); Protein Urine Trace mg/dL (Negative); Specific Grav Ur 1.025 (1.001-1.035); Urobilinogen Urine 0.2 mg/dL (<2.0)
[2022-12-26 15:23] LABS: Calcium Oxalate Crystals Urine Present /hpf; Mucus Urine Moderate /lpf; RBC Urine 0-2 /hpf (0-2); Squamous Epithelial Cell Urine Many /hpf (Few); WBC Urine 0-3 /hpf
[2022-12-26 15:27] LABS: Add Urine Microscopic? YES
[2022-12-26 15:29] LABS: Non Pathogenic Casts Not Present
--- NOTE | 2022-12-26 15:43 | ED.ABDPAIN ---
HPI - Abdominal Pain General Chief Complaint: Abdominal Pain Stated Complaint: abd pain Time Seen by Provider: 12/26/22 14:31 Source: patient Limitations: no limitations History of Present Illness HPI narrative: 22-year-old with a history of anxiety, bipolar disorder, polycystic ovarian syndrome, gallbladder disease here with the complaints of severe right upper quadrant pain earlier this morning she states that the pain was severe enough that she had to call 911 upon arrival to the ER. Has much subsided. She denies any fever, nausea or vomiting. Patient states she had HIDA scan done yesterday which showed low ejection fraction. Related Data Home Medications Medication Instructions Recorded Confirmed buspirone 5 mg tablet 5 mg PO BID 12/21/21 10/18/22 cholecalciferol (vitamin D3) 1,250 1,250 mcg PO MONTHLY 02/21/22 10/18/22 mcg (50,000 unit) tablet Lamictal PO DAILY 06/01/22 10/18/22 metformin 500 mg tablet 500 mg PO BID 12/12/22 spironolactone 100 mg tablet 100 mg PO DAILY 12/12/22 Allergies Allergy/AdvReac Type Severity Reaction Status Date / Time diphenhydramine Allergy Severe Anaphylactic Verified 12/14/22 11:08 [From Benadryl] Shock lidocaine Allergy Severe Anaphylactic Verified 12/14/22 11:08 Shock Review of Systems Review of Systems: All systems reviewed & are unremarkable except as noted in HPI and below Constitutional: Constitutional: Reports no additional constitutional complaints Eyes: Eyes: Reports no additional eye complaints ENT: Reports system reviewed and no additional complaints, except as documented Cardiovascular: Cardiovascular: Reports no additional cardiovascular complaints Respiratory: Respiratory: Reports no additional respiratory complaints Gastrointestinal: Gastrointestinal: Reports as per HPI Musculoskeletal: Musculoskeletal: Reports no additional musculoskeletal complaints Integumentary/Breasts: Skin/Breast: Reports system reviewed and no additional complaints, except as docu Neurologic: Reports system reviewed and no additional complaints, except as documented PMFSH Past Medical History Medical History Anxiety Bipolar disorder Depression Initiation of Depo Provera Insertion of Nexplanon 03/2021 Obesity Polycystic ovarian syndrome Pre-diabetes Surveillance for Depo-Provera contraception Surgical History Surgical History History of laparoscopic appendectomy 05/28/22 No pertinent past surgical history Family History Family History Father Hypertension Mother Hypertension Social History Social History Smoking status: Former smoker Tobacco type: e-cigarettes/vaping Additional smoking assessment comments: Vapes daily with nicotine-containing substance for the past few months Alcohol intake: never Substance use: never Substance use type: does not use Living arrangements: with family Occupation/Education: occupation Additional occupation/education comments: Works in [employer] Gender identity (if verbalized by the patient): Female Spiritual care concerns: No Exam Narrative: GENERAL: Well-appearing, well-nourished, and in no acute distress. HEAD: Normocephalic, atraumatic. EYES: PERRLA and EOMI. NECK: Supple. CHEST: Clear to auscultation. No respiratory distress. HEART: Regular rate and rhythm. No murmur heard. Normal peripheral pulses. ABDOMEN: Soft, nontender, nondistended, normal active bowel sounds. EXTREMITIES: Normal range of motion. No edema. SKIN: Warm, dry, no rash. NEURO: No focal deficits. Alert and oriented x3. PSYCH: Normal mood and affect. Course Course Emergency Course: She continues to be pain-free at this time. Informed her about her lab work. I discussed with Dr. Mast
[2022-12-26 16:20] VITALS: BP 140/72; PULSE 70; RESP 16; O2SAT 98
== END 2022-12-26 16:20 | disposition home or self-care (01) ==
PROVIDERS: Emergency Medicine; Emergency Provider Family Medicine; PCP Internal Medicine
DX: R10.11 Right upper quadrant pain (principal); K82.9 Disease of gallbladder, unspecified; F41.9 Anxiety disorder, unspecified; F31.9 Bipolar disorder, unspecified
CPT/HCPCS: 36415; 80053; 81001; 81025; 83690; 85025; 99283

== ENCOUNTER 2023-01-17 11:43 | Outpatient (CLI) | payer MEDICARE, MEDICAID, SELFPAY ==
--- NOTE | 2023-01-17 15:10 | ECG_ITS ---
Measurements Intervals [place] Rate: 97 P: 52 ND: 159 QRS: 65 QRSD: 89 T: 37 QT: 322 QTc: 409 Interpretive Statements SINUS RHYTHM BASELINE ARTIFACT- I, III, AVR, AVL NORMAL ECG COMPARED TO ECG 12/21/2021 19:59:04 SINUS RHYTHM NOW PRESENT Electronically Signed On 01-17-2023 15:47:25 CDT by Antoine Odom D.O.
[2023-01-17 16:06] LABS: Alanine Aminotransferase 36 U/L (6-35); Albumin Level 4.4 g/dL (3.5-5.1); Alkaline Phosphatase 56 U/L (38-126); Amylase 138 U/L (30-110); Aspartate Amino Transferase 37 U/L (14-36); Bilirubin,Total 0.5 mg/dL (0.2-1.3)
== END 2023-01-17 11:44 | disposition home or self-care (01) ==
PROVIDERS: PCP Internal Medicine; Visit Provider Surgery
DX: K82.8 Other specified diseases of gallbladder (principal); I10 Essential (primary) hypertension; Z01.818 Encounter for other preprocedural examination
CPT/HCPCS: 36415; 80076; 82150; 86850; 86900; 86901; 93005

== ENCOUNTER 2023-01-25 00:38 | Day surgery (SDC) | payer MEDICARE, MEDICAID, SELFPAY ==
[2023-01-11 12:47] VITALS: BMI 33.5
--- NOTE | 2023-01-11 12:51 | PC.NURSE ---
Report to the Outpatient Waiting Room, entrance under the green pavilion located off [facility], at time 11:00 on date 01/25/23. Planned Procedure Time: 1:00. Time changes happen often and if your time is changed the preop area will call you the afternoon before. - You and your visitor will be asked to self-screen and do not enter if you have any COVID symptoms. - Only one visitor is requested with a max of two and NO children visitors are allowed at this time. - The patient visitor may be requested to leave or wait in car when not with patient due to distancing restrictions. - A mask is optional within the hospital at this time. Patients may have clear liquids (water, carbonated beverages, clear teas, apple juice) until 3 hours prior to surgery (10:00) with a maximum of 20 ounces. - No food from midnight until time of surgery Take the following medications with a SIP of water the morning of surgery: BUSPIRONE, LAMICTAL DO NOT STOP ANY OF YOUR OTHER PRESCRIPTION MEDICATIONS PRIOR TO SURGERY EXCEPT THE FOLLOWING Medications to discontinue per physician: VITAMINS Date to take last dose: 01/21/23 Please no make-up, nail divehi, hairspray, perfume, deodorant, or body powder the day of surgery. No jewelry (including any body piercings) or valuables the day of surgery, leave them at home. Please take a shower or bath the night before, or the morning of, surgery with an antibacterial soap (HIBICLENS). Wear comfortable, loose fitting clothing. - Jewelry must be removed prior to entering the operating room. Rings and piercings that are not removed may be cut off. - The hospital will not accept responsibility for valuables. - Please leave all valuables, including medications, at home the day of surgery. If you are going home after surgery, a licensed sulky driver must drive you home. - NO public transportation without another adult if you receive anesthesia. - We recommend that an adult stay with you for 24 hours following discharge. - We also recommend that you do not drive, make important decision, drink alcoholic beverages, or take any drugs that were not prescribed by your health care provider for at least 24 hours after your discharge time. Follow any additional instructions given to you from your surgeon. If you or anyone in your household have experienced Covid symptoms in the past week, please notify your surgeon or the nurse liaison at the phone number below for possible testing. Telephone instructions given to PT - DARBY LUQUE and asked if any additional questions and then verbalized understanding. Patient advised to call surgeon office or pre surgery nurse liaison [phone] if any additional questions.
[2023-01-25] VITALS (10 sets, daily range): BP systolic 106–126; BP diastolic 58–79; PULSE 77–106; RESP 12–22; TEMP 37; O2SAT 95–100
--- NOTE | 2023-01-25 11:18 | WPDHPUPDATE1 ---
History and Physical Update Update Date/Time: 01/25/23 11:18 History and Physical has been reviewed, including an updated exam of the patient. There are NO changes in the patient's condition. Risks, benefits, and alternatives have been discussed and questions answered. Patient agrees to proceed with procedure.
[2023-01-25] MEDS: ACETAMINOPHEN 500 MG TABLET 1000 MG PO (11:20)
[2023-01-25] MEDS: KETOROLAC 15 MG/ML VIAL (*BKC) IV PUSH (11:20)
[2023-01-25] MEDS: LACTATED RINGERS 1,000 ML 30 ML IV CONT ×2 (11:20→14:15)
[2023-01-25 12:19] LABS: Glucose Point of Care 65 mg/dl (65-105)
--- NOTE | 2023-01-25 12:35 | WPDANESEPPF ---
Anes - Initial Pre Proc Eval Procedure: Operation Date: 01/25/23 12:30 Proposed Procedures p Laparoscopic Cholecystectomy, Possible Open - Piter Bautista DO Date/Time: 01/25/23 12:35 Surgeon: Piter Bautista DO Pre Op Diagnosis: Biliary Dyskinesia Patient Data Age: 23 Gender: F Height: 1.7 m Weight: 98.7 kg Allergies Allergy/AdvReac Type Severity Reaction Status Date / Time diphenhydramine Allergy Severe Anaphylactic Verified 01/11/23 12:44 [From Benadryl] Shock lidocaine Allergy Severe Anaphylactic Verified 01/11/23 12:44 Shock Home Medications Medication Instructions Recorded Confirmed Type buspirone 5 mg tablet 5 mg PO BID 12/21/21 01/11/23 History cholecalciferol (vitamin D3) 1,250 1,250 mcg PO MONTHLY 02/21/22 01/11/23 History mcg (50,000 unit) tablet epinephrine 0.3 mg/0.3 mL 0.3 mg (0.3 mL) IM ONCE #2 ea 09/03/22 01/11/23 Rx injection syringe ibuprofen 600 mg tablet 600 mg PO TID PRN pain #14 tabs 11/29/22 01/11/23 Rx medroxyprogesterone 150 mg/mL 150 mg IM [id number] #1 mL 12/12/22 01/11/23 Rx intramuscular syringe (Depo-Provera) metformin 500 mg tablet 500 mg PO BID 12/12/22 01/11/23 History lamotrigine 100 mg tablet 100 mg PO DAILY 01/11/23 01/11/23 History (Lamictal) spironolactone 50 mg tablet 100 mg PO BID 01/11/23 01/11/23 History Laboratory Tests 01/25/23 12:17 POC Capillary Glucose 65 mg/dl mg/dl (65-105) Patient hx anesthesia problems: none Family hx anesthesia problems: none Results Review: All pre-operative results and documents have been reviewed as part of the pre-operative evaluation. [facility] Past Medical History Medical History Anxiety Bipolar disorder Depression Initiation of Depo Provera Insertion of Nexplanon 03/2021 Obesity Polycystic ovarian syndrome Pre-diabetes Surveillance for Depo-Provera contraception Surgical History Surgical History History of laparoscopic appendectomy 05/28/22 No pertinent past surgical history Family History Family History Father Hypertension Mother Hypertension Social History Social History Smoking status: Never smoker Tobacco type: e-cigarettes/vaping Additional smoking assessment comments: Vapes daily with nicotine-containing substance for the past few months Alcohol intake: never Substance use: never Substance use type: does not use Living arrangements: with family Occupation/Education: occupation Additional occupation/education comments: Works in [employer] Gender identity (if verbalized by the patient): Female Spiritual care concerns: No Anes - Eval Final PreProcedure Day of Procedure 01/25/23 12:35 Patient weight: obese Heart: regular rate and rhythm Lungs: clear to auscultation Airway: Mallampati scale class II Neurological: other (alert) Last oral intake: >/= 8 hours ASA classification: III Emergent: no Anesthetic plan: proceed Anesthesia type and monitoring: general ETT and standard monitoring Results Review: All pre-operative results and documents have been reviewed as part of the pre-operative evaluation. Informed Consent: The patient's anesthetic plan and its attendant risks and benefits were discussed with the patient/family/POA. Questions were solicited and answers provided to the satisfaction of the patient/family/POA.
[2023-01-25] MEDS: ceFAZolin 2 GM/D5W 50 ML 2 GM/50 ML BAG IVPB (13:05)
[2023-01-25] MEDS: BUPIVACAINE/EPINEPHRINE 0.25% 50 ML VIAL 30 ML INFILTRATE (13:38)
--- NOTE | 2023-01-25 14:04 | W.PM.PROC2 ---
Procedure Note - Detailed Date of Procedure 01/25/23 Pre-op Diagnosis Biliary Dyskinesia Post-op Diagnosis Same Procedure Performed Laparoscopic Cholecystectomy Surgeon Piter Bautista, DO Anesthesia General and Local (0.5% bupivacaine) Indications This is a 23-year-old woman who presents with right upper quadrant pain that started a couple months ago. She was noticing pain after eating spicy foods. She has presented to the emergency department previously with symptoms like this. Ultrasound was normal but then she was sent for a HIDA scan which showed a decreased gallbladder ejection fraction. Discussions were made with the patient about treatment options and decision was made to proceed with laparoscopic cholecystectomy, possible open. Findings Laparoscopic cholecystectomy was performed. The gallbladder did have several pericholecystic adhesions. The cystic duct appeared normal size and no other significant abnormalities were noted. The gallbladder was removed and sent to the lab for pathology. Description of Procedure Procedure as well as risks, benefits, and alternatives were discussed with patient. Written consent was obtained and placed in chart prior to procedure. The patient was brought back to surgical suite. Patient was placed in supine position on operating table. Time-out was done to confirm patient and procedure. Patient was then intubated by the anesthesia department. Abdomen was prepped and draped in sterile fashion using chlorhexidine prep. 0.5% bupivacaine with epinephrine was infiltrated at each site of incision. A 5 millimeter incision was made near the umbilicus, and a 5 millimeter Optiview trocar was advanced through the abdominal layers under direct visualization. Once inside the abdominal cavity, carbon dioxide was insufflated to create a pneumoperitoneum. The camera was inserted and the abdomen was inspected. No immediate abnormalities were identified. The patient was placed in reverse Trendelenburg position and rotated slightly to the left. An 11 millimeter incision was made in the subxiphoid region, and an 11 millimeter trocar was inserted under direct visualization. Two 5 millimeter incisions were made in the right upper quadrant, and two 5 millimeter trocars were inserted under direct visualization. The gallbladder was identified and grasped at the fundus and retracted superiorly. It was then grasped at the infundibulum retracted laterally. Careful dissection around the neck of the gallbladder was performed using blunt dissection with a [place] grasper and hook electrocautery. The cystic duct was identified, and a window was created behind it. The cystic artery was also identified and a window was created behind it. The critical view of safety was identified, visualizing the cystic duct running directly into the neck of the gallbladder, and the cystic artery running directly into the wall of the gallbladder. A 5 millimeter clip claims analyst was then used to place 2 clips proximally and 1 clip distally on both the cystic duct and cystic artery. They were then both transected using endoscopic scissors. Once safely away from the maty hepatitis, the gallbladder was dissected free from the liver bed using hook electrocautery. Hemostasis was achieved along the way. The gallbladder was removed completely and then removed through the subxiphoid port. The liver bed was then inspected. Hemostasis appeared adequate, and our clips appeared secure. The area was gently irrigated with sterile saline. No other abnormalities were seen. The patient was flattened out in bed, and 1 final inspection was made around the abdominal cavity. The subxiphoid port was removed, and a Nuno Kassie cone was used to approximate the fascia with an 0-Vicryl simple interrupted suture. The remaining ports were then removed under direct visualization, the camera was removed, and the pneumoperitoneum was released. The skin of the incisions was
[2023-01-25 14:24] LABS: Glucose Point of Care 91 mg/dl (65-105)
[2023-01-25] MEDS: fentaNYL CITRATE INJ (*CRX) 100 MCG/2 ML VIAL 25 MCG IV PUSH ×4 (14:49→15:13)
[2023-01-25] MEDS: ONDANSETRON INJ 4 MG/2 ML VIAL IV PUSH (15:51)
== END 2023-01-25 16:37 | disposition home or self-care (01) ==
PROVIDERS: PCP Internal Medicine; Visit Provider Surgery
PROC: 0FT44ZZ Resection of Gallbladder, Percutaneous Endoscopic Approach (ICD-10-PCS; CPT 47562; principal; 2023-01-25 12:30)
DX: K81.1 Chronic cholecystitis (principal); E28.2 Polycystic ovarian syndrome; F31.9 Bipolar disorder, unspecified; F41.9 Anxiety disorder, unspecified; R73.03 Prediabetes; E66.9 Obesity, unspecified; Z68.34 Body mass index [BMI] 34.0-34.9, adult; F17.290 Nicotine dependence, other tobacco product, uncomplicated; Z79.84 Long term (current) use of oral hypoglycemic drugs
CPT/HCPCS: 47562; 82948; 88304; A9270; J0330; J0690; J1885; J2250; J2405; J2704; J2710; J3010; J7120

== ENCOUNTER 2023-04-30 08:24 | Outpatient (CLI) | payer MEDICARE, MEDICAID, SELFPAY ==
[2023-04-30 09:01] LABS: Anion Gap 6 mmol/L (8-16); Blood Urea Nitrogen 5 mg/dL (7-17); Calcium 8.6 mg/dL (8.4-10.2); Carbon Dioxide 23 mmol/L (22-30); Chloride 108 mmol/L (98-107); Estimated Glomerular Filt Rate > 60; Glucose 88 mg/dL (65-110); Sodium 137 mmol/L (137-145)
== END 2023-04-30 08:25 | disposition home or self-care (01) ==
LOC: ANHSURGERY 08:30
PROVIDERS: Anesthesiology; PCP Internal Medicine; Visit Provider Surgery
DX: Z79.899 Other long term (current) drug therapy (principal); Z01.818 Encounter for other preprocedural examination
CPT/HCPCS: 36415; 80048

== ENCOUNTER 2023-05-03 05:16 | Day surgery (SDC) | payer MEDICARE, MEDICAID, SELFPAY ==
[2023-04-26 13:43] VITALS: BMI 34.7
--- NOTE | 2023-04-26 13:53 | PC.NURSE ---
Report to the Outpatient Waiting Room, entrance under the green pavilion located off [facility], at time 10am on date Thursday 05/03. Planned Procedure Time: Noon. Time changes happen often and if your time is changed the preop area will call you the afternoon before. - You and your visitor will be asked to self-screen and do not enter if you have any COVID symptoms. - A mask is optional within the hospital at this time. Patients may have clear liquids (water, carbonated beverages, clear teas, apple juice) until 3 hours prior to surgery with a maximum of 20 ounces. - No food from midnight until time of surgery Take the following medications with a SIP of water the morning of surgery: __Buspirone __ DO NOT STOP ANY OF YOUR OTHER PRESCRIPTION MEDICATIONS PRIOR TO SURGERY ?EXCEPT THE FOLLOWING Medications to discontinue per physician NA Date to take last dose Please no make-up, nail jordanian, hairspray, perfume, deodorant, or body powder the day of surgery. No jewelry (including any body piercings) or valuables the day of surgery, leave them at home. Please take a shower or bath the night before, or the morning of, surgery with an antibacterial soap. Wear comfortable, loose fitting clothing. Children are encouraged to wear pajamas. - Jewelry must be removed prior to entering the operating room. Rings and piercings that are not removed may be cut off. - The hospital will not accept responsibility for valuables. - Please leave all valuables, including medications, at home the day of surgery. If you are going home after surgery, a licensed armored car driver must drive you home. - NO public transportation without another adult if you receive anesthesia. - We recommend that an adult stay with you for 24 hours following discharge. - We also recommend that you do not drive, make important decision, drink alcoholic beverages, or take any drugs that were not prescribed by your health care provider for at least 24 hours after your discharge time. For Pediatric surgeries, we recommend two adults accompany the child home. Follow any additional instructions given to you from your surgeon. If you or anyone in your household have experienced Covid symptoms in the past week, please notify your surgeon or the nurse liaison at the phone number below for possible testing. Telephone instructions given to __Patient ___and asked if any additional questions and then verbalized understanding. Patient advised to call surgeon office or pre surgery nurse liaison [phone] if any additional questions.
[2023-05-03 11:58] VITALS: BP 115/71; PULSE 84; RESP 16; TEMP 36.5; O2SAT 98
[2023-05-03] MEDS: LACTATED RINGERS 1,000 ML 30 ML IV CONT (12:06)
--- NOTE | 2023-05-03 12:23 | WPDANESEPPF ---
Anes - Initial Pre Proc Eval Procedure: Operation Date: 05/03/23 13:30 Proposed Procedures p Excision of Left Breast Skin Lesion - Piter Bautista DO Date/Time: 05/03/23 12:23 Surgeon: Piter Bautista DO Pre Op Diagnosis: Left 1cm Breast Skin Lesion Patient Data Age: 23 Gender: F Height: 1.7 m Weight: 96.8 kg Last Vital Signs Temp 36.5 C 05/03/23 11:58 Pulse 84 05/03/23 11:58 Resp 16 05/03/23 11:58 BP 115/71 05/03/23 11:58 Pulse Ox 98 05/03/23 11:58 O2 Del Method Room Air 05/03/23 11:58 Allergies Allergy/AdvReac Type Severity Reaction Status Date / Time diphenhydramine Allergy Severe Anaphylactic Verified 04/26/23 13:35 [From Benadryl] Shock lidocaine Allergy Severe Anaphylactic Verified 04/26/23 13:35 Shock Home Medications Medication Instructions Recorded Confirmed Type buspirone 5 mg tablet 5 mg PO BID 12/21/21 04/26/23 History cholecalciferol (vitamin D3) 1,250 1,250 mcg PO MONTHLY 02/21/22 04/26/23 History mcg (50,000 unit) tablet epinephrine 0.3 mg/0.3 mL 0.3 mg (0.3 mL) IM ONCE #2 ea 09/03/22 04/26/23 Rx injection syringe metformin 500 mg tablet 500 mg PO BID 12/12/22 04/26/23 History lamotrigine 100 mg tablet 100 mg PO DAILY 01/11/23 04/26/23 History (Lamictal) spironolactone 50 mg tablet 100 mg PO BID 01/11/23 04/26/23 History medroxyprogesterone 150 mg/mL 150 mg IM [id number] #1 mL 03/07/23 04/26/23 Rx intramuscular syringe (Depo-Provera) Patient hx anesthesia problems: none Family hx anesthesia problems: none Results Review: All pre-operative results and documents have been reviewed as part of the pre-operative evaluation. [facility] Past Medical History Medical History Anxiety Bipolar disorder Depression Initiation of Depo Provera Insertion of Nexplanon 03/2021 Obesity Polycystic ovarian syndrome Pre-diabetes Surveillance for Depo-Provera contraception Surgical History Surgical History History of laparoscopic appendectomy 05/28/22 Hx laparoscopic cholecystectomy 01/25/23 No pertinent past surgical history Family History Family History Father Hypertension Mother Hypertension Social History Social History Smoking status: Light tobacco smoker Tobacco type: e-cigarettes/vaping Additional smoking assessment comments: Vapes daily with nicotine-containing substance for the past few months Alcohol intake: never Substance use: never Substance use type: does not use Living arrangements: with family Occupation/Education: occupation Additional occupation/education comments: Works in [employer] Gender identity (if verbalized by the patient): Female Spiritual care concerns: No Anes - Eval Final PreProcedure Day of Procedure 05/03/23 12:23 Patient weight: obese Heart: regular rate and rhythm Lungs: clear to auscultation Airway: Mallampati scale class III Neurological: alert and oriented Last oral intake: >/= 8 hours ASA classification: III Emergent: no Anesthetic plan: proceed Anesthesia type and monitoring: general GIVS and standard monitoring Results Review: All pre-operative results and documents have been reviewed as part of the pre-operative evaluation. Informed Consent: The patient's anesthetic plan and its attendant risks and benefits were discussed with the patient/family/POA. Questions were solicited and answers provided to the satisfaction of the patient/family/POA.
--- NOTE | 2023-05-03 12:40 | WPDHPUPDATE1 ---
History and Physical Update Update Date/Time: 05/03/23 12:40 History and Physical has been reviewed, including an updated exam of the patient. There are NO changes in the patient's condition. Risks, benefits, and alternatives have been discussed and questions answered. Patient agrees to proceed with procedure.
--- NOTE | 2023-05-03 12:40 | PM.IMHP ---
H&P: HPI History of Present Illness Date/Time: 05/03/23 12:40 Chief Complaint: Left breast skin lesion Narrative: This is a 23-year-old woman who presents for excision of a left breast skin lesion. She has a raised lesion that frequently gets irritated and inflamed. She reports no changes since last seen in the office. Review of Systems Review of Systems: All systems reviewed & are unremarkable except as noted in HPI and below Constitutional: Constitutional: Denies chills, Denies fever(s), Denies headache(s) and Denies weight loss Eyes: Eyes: Denies change in vision ENT: Denies dizziness, Denies headache(s), Denies neck mass and Denies throat swelling Cardiovascular: Cardiovascular: Denies chest pain, Denies lightheadedness and Denies dyspnea Respiratory: Respiratory: Denies cough, Denies dyspnea and Denies wheezing Gastrointestinal: Gastrointestinal: Denies abdominal pain, Denies change in bowel habits, Denies nausea and Denies vomiting Genitourinary: Genitourinary: Denies hematuria and Denies dysuria Musculoskeletal: Musculoskeletal: Reports as per HPI Integumentary/Breasts: Skin/Breast: Reports as per HPI Neurologic: Denies dizziness and Denies headache(s) Allergic/Immunologic: Allergic/Immunologic: Denies throat swelling and Denies wheezing COUNT INCLUDES THE [facility] Past Medical History Medical History Anxiety Bipolar disorder Depression Initiation of Depo Provera Insertion of Nexplanon 03/2021 Obesity Polycystic ovarian syndrome Pre-diabetes Surveillance for Depo-Provera contraception Surgical History Surgical History History of laparoscopic appendectomy 05/28/22 Hx laparoscopic cholecystectomy 01/25/23 No pertinent past surgical history Family History Family History Father Hypertension Mother Hypertension Social History Social History Smoking status: Light tobacco smoker Tobacco type: e-cigarettes/vaping Additional smoking assessment comments: Vapes daily with nicotine-containing substance for the past few months Alcohol intake: never Substance use: never Substance use type: does not use Living arrangements: with family Occupation/Education: occupation Additional occupation/education comments: Works in [employer] at [employer] Gender identity (if verbalized by the patient): Female Spiritual care concerns: No Meds Home Medications and Allergies Home Medications Medication Instructions Recorded Confirmed Type buspirone 5 mg tablet 5 mg PO BID 12/21/21 04/26/23 History cholecalciferol (vitamin D3) 1,250 1,250 mcg PO MONTHLY 02/21/22 04/26/23 History mcg (50,000 unit) tablet epinephrine 0.3 mg/0.3 mL 0.3 mg (0.3 mL) IM ONCE #2 ea 09/03/22 04/26/23 Rx injection syringe metformin 500 mg tablet 500 mg PO BID 12/12/22 04/26/23 History lamotrigine 100 mg tablet 100 mg PO DAILY 01/11/23 04/26/23 History (Lamictal) spironolactone 50 mg tablet 100 mg PO BID 01/11/23 04/26/23 History medroxyprogesterone 150 mg/mL 150 mg IM [id number] #1 mL 03/07/23 04/26/23 Rx intramuscular syringe (Depo-Provera) Allergies Allergy/AdvReac Type Severity Reaction Status Date / Time diphenhydramine Allergy Severe Anaphylactic Verified 04/26/23 13:35 [From Benadryl] Shock lidocaine Allergy Severe Anaphylactic Verified 04/26/23 13:35 Shock Vital Signs Vital Signs - 24 hr 05/03/23 11:58 Temperature 36.5 C Pulse Rate 84 Respiratory Rate 16 Blood Pressure 115/71 Pulse Oximetry 98 Oxygen Delivery Room Air Exam Const: General: no acute distress and alert Orientation/consciousness: patient oriented x3 HENMT: Head: normocephalic and atraumatic Ears: hearing grossly normal bilaterally Face/Nose/Sinus: Normal nares present M
[2023-05-03] MEDS: ceFAZolin 2 GM/D5W 50 ML 2 GM/50 ML BAG IVPB (13:11)
[2023-05-03] MEDS: BUPIVACAINE/EPINEPHRINE 0.5% 10 ML VIAL INFILTRATE (13:20)
[2023-05-03] MEDS: BACITRACIN OINTMENT 15 GM TUBE 1 APPLIC TOPICAL (13:24)
--- NOTE | 2023-05-03 13:29 | W.PM.PROC2 ---
Procedure Note - Detailed Date of Procedure 05/03/23 Pre-op Diagnosis Left 1cm Breast Skin Lesion Post-op Diagnosis Other (8mm left breast skin tag) Procedure Performed Excision 8 mm left breast skin tag Surgeon Piter Bautista, DO Anesthesia MAC and Local (0.5% bupivacaine) Indications This is a 23-year-old woman who presented with an irritated lesion on her left breast. She states that it frequently becomes red and irritated and she has some pain and discomfort with it. She was found to have a raised flesh-colored skin lesion on the left breast in the lower outer quadrant. This appeared likely to be an irritated skin tag. Discussions were made with the patient about treatment options. She has a lidocaine allergy, therefore an office procedure was going to be difficult. Decision was made to proceed with excision of left breast skin lesion under sedation in the OR. Findings Excision of left breast skin lesion was performed. Patient had a 8 mm skin lesion on the left breast in the lower outer quadrant about 3 cm away from the nipple areola complex. No deep underlying abnormalities were noted. The skin tag was excised flush with the level of the skin. It was sent for pathology. No other abnormalities were noted. Description of Procedure Procedure as well as risks, benefits, and alternatives were discussed with the patient. Written consent was obtained and placed chart prior to procedure. Patient was brought back to surgical suite. She was placed supine on operating table. Time-out was done to confirm patient and procedure. IV sedation was then administered by the anesthesia department. Her left breast area was prepped and draped in sterile fashion using chlorhexidine prep. 0.5% bupivacaine was infiltrated locally around the skin lesion. The skin tag was lifted anteriorly and curved Metzenbaum scissors were used to excise the skin lesion flush with the level of the skin. Electrocautery was then used for hemostasis. No other abnormalities were noted. Bacitracin ointment was then applied followed by a coverlet. Estimated Blood Loss 1 Pathology Yes (Left breast skin lesion) Complications No immediate complications Condition Stable Disposition Same day [facility] Billing Surgery - Charge Forward: Surgery Billing
[2023-05-03 13:33] VITALS: BP 93/59; PULSE 90; RESP 20
[2023-05-03 14:00] VITALS: BP 90/63; PULSE 82; RESP 20
[2023-05-03 14:30] VITALS: BP 117/78; PULSE 78; RESP 18
[2023-05-03 14:45] VITALS: BP 118/87; PULSE 81; RESP 18
== END 2023-05-03 14:55 | disposition home or self-care (01) ==
PROVIDERS: PCP Internal Medicine; Visit Provider Surgery
PROC: (CPT 11200; principal; 2023-05-03 13:30)
DX: L91.8 Other hypertrophic disorders of the skin (principal); N64.9 Disorder of breast, unspecified; E66.9 Obesity, unspecified; Z68.33 Body mass index [BMI] 33.0-33.9, adult; R73.03 Prediabetes; F17.290 Nicotine dependence, other tobacco product, uncomplicated
CPT/HCPCS: 11200; 88305; A9270; J0690; J2250; J2704; J3010; J7120

== ENCOUNTER 2023-06-11 08:43 | Emergency (ER) | payer OTHER, SELFPAY ==
--- NOTE | ~2023-06-11 | CT_ITS ---
EXAMINATION: CT abdomen pelvis w con DATE: 06/11/2023 09:53 INDICATION: Abdominal pain. TECHNIQUE: Computed tomography (CT) of the abdomen and pelvis was performed with 100 mL Omnipaque 350 intravenous contrast. Automated exposure control and iterative reconstruction technique were employe d. The dose-length product was 778.89 mGy-cm. COMPARISON: CT abdomen and pelvis 08/05/2022 FINDINGS: The visualized portions of the lung bases are clear without pneumonia or pleural effusion. The heart size is normal. No pericardial effusion. The liver is normal. There are changes of cholecys tectomy. The spleen, pancreas, adrenal glands, and kidneys are normal. There are no dilated loops of bowel. There are changes of appendectomy. There are no pathologically enlarged lymph nodes. There is no free intraperitoneal fluid. There is mild thoracolumbar spondylosis. IMPRESSION: 1. No etiology for the patient's symptoms. Reviewed, dictated and finalized at location A.
[2023-06-11 08:45] VITALS: BP 147/80; PULSE 103; RESP 19; TEMP 36.4; O2SAT 100
[2023-06-11 09:13] LABS: Basophils Percent Auto 0.7 % (0.2-1.2); Eosinophils Percent Auto 0.2 % (0-4.4); Hematocrit 40.9 % (37.0-47.0); Hemoglobin 13.8 g/dL (12.0-15.0); Immature Granulocyte Absolute 0.02 K/mm3 (0.00-0.031); Immature Granulocyte Percent A 0.3 % (0-0.5); Lymphocytes Absolute Auto 1.87 K/mm3 (0.9-3.2); Lymphocytes Percent Auto 31.3 % (18.3-44.2); Mean Corpuscular HGB Conc 33.7 g/dl (32-36); Mean Corpuscular Hemoglobin 30.1 pg (26-34); Mean Corpuscular Volume 89.3 fl (80-100); Mean Platelet Volume 9.4 fl (7.4-10.4); Monocytes Absolute Auto 0.4 K/mm3 (0.1-0.6); Monocytes Percent Auto 7.2 % (2.6-8.5); Neutrophils Absolute Auto 3.6 K/mm3 (1.3-6.7); Neutrophils Percent Auto 60.3 % (45.5-73.1); Platelet Count Result 241 k/mm3 (150-375); Red Blood Count 4.58 M/mm3 (4.2-5.4); Red Cell Distribution Width 12.5 % (11.5-14.5)
[2023-06-11 09:15] LABS: Appearance Urine Clear (Clear); Bilirubin Urine Negative (Negative); Blood Urine Negative (Negative); Color Urine Yellow (Yellow); Glucose Urine UA Negative (Negative); Ketones Urine Negative (Negative); Leukocyte Esterase Ur Negative LEU/UL (Negative); Nitrate Urine Negative (Negative); Protein Urine Negative (Negative); Specific Grav Ur 1.009 (1.001-1.035); Urobilinogen Urine 0.2 mg/dL (<2.0); pH Urine 7.5 (5.0-9.0)
[2023-06-11 09:24] LABS: Alanine Aminotransferase 34 U/L (6-35); Albumin Level 4.4 g/dL (3.5-5.1); Alkaline Phosphatase 52 U/L (38-126); Anion Gap 5 mmol/L (8-16); Aspartate Amino Transferase 37 U/L (14-36); Bilirubin,Total 0.4 mg/dL (0.2-1.3); Blood Urea Nitrogen 7 mg/dL (7-17); Calcium 9.6 mg/dL (8.4-10.2); Carbon Dioxide 22 mmol/L (22-30); Chloride 104 mmol/L (98-107); Estimated CRCL calculation 129 ml/min; Estimated Glomerular Filt Rate > 60; Glucose 102 mg/dL (65-110); Lipase 103 U/L (23-300); Potassium 4.1 mmol/L (3.4-5.0); Sodium 131 mmol/L (137-145)
[2023-06-11 09:41] LABS: Add Urine Microscopic? NO
--- NOTE | 2023-06-11 10:18 | ED.GENADULT ---
HPI - General Adult General Chief complaint: Abdominal Pain Stated complaint: abd pain Time Seen by Provider: 06/11/23 09:00 History of Present Illness HPI narrative: Iveth Ashraf is a 23 y/o female who presents with reports of having generalized abdominal pain with nausea/vomiting for 1 week. She states she has been having normal formed bowel movements. Denies any fever/chills. Denies changes with urination and does not have regular menstrual cycles because she is on the depo shot. Related Data Home Medications Medication Instructions Recorded Confirmed buspirone 5 mg tablet 5 mg PO BID 12/21/21 05/17/23 cholecalciferol (vitamin D3) 1,250 1,250 mcg PO MONTHLY 02/21/22 05/17/23 mcg (50,000 unit) tablet metformin 500 mg tablet 500 mg PO BID 12/12/22 05/17/23 lamotrigine 100 mg tablet 100 mg PO DAILY 01/11/23 05/17/23 (Lamictal) spironolactone 50 mg tablet 100 mg PO BID 01/11/23 05/17/23 Allergies Allergy/AdvReac Type Severity Reaction Status Date / Time diphenhydramine Allergy Severe Anaphylactic Verified 06/11/23 09:03 [From Benadryl] Shock lidocaine Allergy Severe Anaphylactic Verified 06/11/23 09:03 Shock Review of Systems Review of Systems: CONSTITUTIONAL: Denies fever, chills, or sweats. EYES: Denies visual changes, redness, or discharge. ENT: Denies rhinorrhea, congestion, sore throat, or otalgia. CARDIOVASCULAR: Denies chest pain, palpitations, or edema. RESPIRATORY: Denies cough or dyspnea. GASTROINTESTINAL: Reports generalized abdominal pain/ nausea/vomiting for 1 week off and on. GENITOURINARY: Denies dysuria or hematuria. SKIN: Denies rash or itching. MUSCULOSKELETAL: Denies back pain, joint pain, or myalgia. NEUROLOGIC: Denies headache, numbness, dizziness, or weakness. PSYCHIATRIC: Denies anxiety or depression. [facility] Past Medical History Medical History Anxiety Bipolar disorder Depression Initiation of Depo Provera Insertion of Nexplanon 03/2021 Obesity Polycystic ovarian syndrome Pre-diabetes Surveillance for Depo-Provera contraception Surgical History Surgical History History of excision of lesion excision 1 cm left breast skin lesion on 05/03/23 History of laparoscopic appendectomy 05/28/22 Hx laparoscopic cholecystectomy 01/25/23 No pertinent past surgical history Family History Family History Father Hypertension Mother Hypertension Social History Social History Smoking status: Light tobacco smoker Tobacco type: e-cigarettes/vaping Additional smoking assessment comments: Vapes daily with nicotine-containing substance for the past few months Alcohol intake: never Substance use: never Substance use type: does not use Living arrangements: with family Occupation/Education: occupation Additional occupation/education comments: Works in [employer] Gender identity (if verbalized by the patient): Female Spiritual care concerns: No Exam Narrative: GENERAL: Well-appearing, well-nourished, and in no acute distress. HEAD: Normocephalic, atraumatic. EYES: PERRLA and EOMI. ENT: Nares clear, no rhinorrhea or epistaxis. Mucous membranes moist. Oropharynx without tonsillar hypertrophy exudate or other lesions. NECK: Supple. No adenopathy or masses. No carotid bruits or JVD CHEST: Clear to auscultation. No respiratory distress. No wheezes rales or rhonchi HEART: Regular rate and rhythm. No murmur heard. Normal peripheral pulses. ABDOMEN: Soft, tender with palpation, nondistended, normal active bowel sounds. EXTREMITIES: Normal range of motion. No edema. SKIN: Warm, dry, no rash. NEURO: No focal deficits. Alert and oriented x3. PSYCH: Normal mood and affect. Course Vital Signs Vital signs: Vital Signs
[2023-06-11] MEDS: DICYCLOMINE HCL INJ 20 MG/2 ML VIAL IM (10:34)
[2023-06-11] MEDS: FAMOTIDINE 20 MG/2 ML VIAL IV PUSH (10:34)
[2023-06-11] MEDS: ONDANSETRON INJ 4 MG/2 ML VIAL IV PUSH (10:34)
[2023-06-11] MEDS: KETOROLAC 30 MG/ML VIAL (*BKC) IV PUSH (10:34)
[2023-06-11] MEDS: SODIUM CHLORIDE 0.9% IV 1,000 ML 999 ML IV CONT (10:35)
[2023-06-11 12:37] VITALS: PULSE 80; RESP 20; O2SAT 98
== END 2023-06-11 12:41 | disposition home or self-care (01) ==
PROVIDERS: Emergency Medicine; Emergency Provider Nurse Practitioner Family; PCP Student in an Organized Health Care Education/Training Program
DX: K29.00 Acute gastritis without bleeding (principal); E28.2 Polycystic ovarian syndrome; E66.9 Obesity, unspecified; Z68.34 Body mass index [BMI] 34.0-34.9, adult; R73.03 Prediabetes; F41.9 Anxiety disorder, unspecified; F31.9 Bipolar disorder, unspecified; Z90.49 Acquired absence of other specified parts of digestive tract; F17.290 Nicotine dependence, other tobacco product, uncomplicated
CPT/HCPCS: 36415; 74177; 80053; 81003; 81025; 83690; 85025; 96361; 96372; 96374; 96375; 99284; J0500; J1885; J2405; J7030; Q9967

== ENCOUNTER 2023-08-05 14:55 | Emergency (ER) | payer OTHER, SELFPAY ==
[2023-08-05 16:03] VITALS: BP 121/84; PULSE 102; RESP 20; TEMP 36.9; O2SAT 100
--- NOTE | 2023-08-05 17:52 | PC.NURSE ---
patient left without being seen
== END 2023-08-05 18:19 | disposition left against medical advice (07) ==
PROVIDERS: PCP Student in an Organized Health Care Education/Training Program
DX: R42 Dizziness and giddiness (principal)
CPT/HCPCS: 99199

== ENCOUNTER 2023-10-16 14:52 | Emergency (ER) | payer OTHER, SELFPAY ==
[2023-10-16 15:02] VITALS: BP 149/102; PULSE 120; RESP 16; TEMP 36.6; O2SAT 100
--- NOTE | 2023-10-16 15:53 | ED.PSYCH ---
HPI - Psych General Chief Complaint: Psychiatric Symptoms Stated Complaint: HI Time Seen by Provider: 10/16/23 15:12 Source: patient Mode of arrival: ambulatory Limitations: no limitations History of Present Illness HPI Narrative: This is a 23 year old female that presents to the ER for a psych evaluation. Reports her father dropped her off to be evaluated. She reports they are saying that she has been threatening them, but the truth is the other way around. She does not feel safe at home. Patient has history of Bipolar disorder. Reports she currently has a psychiatrist she sees at [facility]. Denies any thoughts of harming herself or anyone else. Related Data Home Medications Medication Instructions Recorded Confirmed buspirone 5 mg tablet 5 mg PO BID 12/21/21 05/17/23 cholecalciferol (vitamin D3) 1,250 1,250 mcg PO MONTHLY 02/21/22 05/17/23 mcg (50,000 unit) tablet metformin 500 mg tablet 500 mg PO BID 12/12/22 05/17/23 lamotrigine 100 mg tablet 100 mg PO DAILY 01/11/23 05/17/23 (Lamictal) spironolactone 50 mg tablet 100 mg PO BID 01/11/23 05/17/23 Allergies Allergy/AdvReac Type Severity Reaction Status Date / Time diphenhydramine Allergy Severe Anaphylactic Verified 10/16/23 16:17 [From Benadryl] Shock lidocaine Allergy Severe Anaphylactic Verified 10/16/23 16:17 Shock Review of Systems Review of Systems: CONSTITUTIONAL: Denies fever PSYCHIATRIC: Reports depression and anxiety All systems reviewed & are unremarkable except as noted in HPI and below PMFSH Past Medical History Medical History Anxiety Bipolar disorder Depression Initiation of Depo Provera Insertion of Nexplanon 03/2021 Obesity Polycystic ovarian syndrome Pre-diabetes Surveillance for Depo-Provera contraception Surgical History Surgical History History of excision of lesion excision 1 cm left breast skin lesion on 05/03/23 History of laparoscopic appendectomy 05/28/22 Hx laparoscopic cholecystectomy 01/25/23 No pertinent past surgical history Family History Family History Father Hypertension Mother Hypertension Social History Social History Smoking status: Light tobacco smoker Tobacco type: e-cigarettes/vaping Additional smoking assessment comments: Vapes daily with nicotine-containing substance for the past few months Alcohol intake: never Substance use: never Substance use type: does not use Living arrangements: with family Occupation/Education: occupation Additional occupation/education comments: Works in [employer] Gender identity (if verbalized by the patient): Female Spiritual care concerns: No Exam Narrative: GENERAL: Well-appearing, well-nourished, and in no acute distress. HEAD: Normocephalic, atraumatic. EYES: EOMI. CHEST: No respiratory distress. HEART: Regular rate EXTREMITIES: Normal range of motion. No edema. SKIN: Warm, dry, no rash. NEURO: No focal deficits. Alert and oriented x3. PSYCH: Tearful Course Course Emergency Course: Patient agrees with plan. Reports she has a safe place to go Consultations Consultation #1: Crisis evaluated patient. She has a safety plan in place and has been given housing resources Date: 10/16/23 Vital Signs Vital signs: Vital Signs Temperature 98 F 10/16/23 15:02 Pulse Rate 120 H 10/16/23 15:02 Respiratory Rate 16 10/16/23 15:02 Blood Pressure 149/102 H 10/16/23 15:02 Pulse Oximetry 100 10/16/23 15:02 Temperature 98 F 10/16/23 15:02 Pulse Rate 79 10/16/23 16:16 Respiratory Rate 17 10/16/23 16:16 Blood Pressure 140/91 H 10/16/23 16:16 Pulse Oximetry 100 10/16/23 16:16 MDM - Psych MDM Narrative Medical decision making narrative: Patient denise
[2023-10-16 16:16] VITALS: BP 140/91; PULSE 79; RESP 17; O2SAT 100
[2023-10-16 16:17] LABS: Basophils Percent Auto 0.6 % (0.2-1.2); Eosinophils Percent Auto 0.4 % (0-4.4); Hematocrit 45.4 % (37.0-47.0); Hemoglobin 15.2 g/dL (12.0-15.0); Immature Granulocyte Absolute 0.03 K/mm3 (0.00-0.031); Immature Granulocyte Percent A 0.4 % (0-0.5); Mean Corpuscular HGB Conc 33.5 g/dl (32-36); Mean Corpuscular Hemoglobin 29.4 pg (26-34); Mean Corpuscular Volume 87.8 fl (80-100); Mean Platelet Volume 9.7 fl (7.4-10.4); Monocytes Absolute Auto 0.7 K/mm3 (0.1-0.6); Neutrophils Absolute Auto 4.4 K/mm3 (1.3-6.7); Neutrophils Percent Auto 60.6 % (45.5-73.1); Platelet Count Result 290 k/mm3 (150-375); Red Blood Count 5.17 M/mm3 (4.2-5.4); Red Cell Distribution Width 12.5 % (11.5-14.5); White Blood Count 7.2 K/mm3 (4.5-10.0)
[2023-10-16 16:24] LABS: Appearance Urine Clear (Clear); Bacteria Urine None Seen /hpf; Bilirubin Urine Negative (Negative); Blood Urine Negative (Negative); Color Urine Dark Yellow (Yellow); Glucose Urine UA Negative (Negative); Ketones Urine 1+ mg/dL (Negative); Leukocyte Esterase Ur Negative LEU/UL (Negative); Nitrate Urine Negative (Negative); Non Pathogenic Casts 0-2; Protein Urine Trace mg/dL (Negative); RBC Urine 0-2 /hpf (0-2); Specific Grav Ur 1.031 (1.001-1.035); Squamous Epithelial Cell Urine None seen /hpf (Few); Urobilinogen Urine 0.2 mg/dL (<2.0); WBC Urine 0-5 /hpf
[2023-10-16 16:27] LABS: Add Urine Microscopic? YES
[2023-10-16 16:27] LABS: Ethanol < 10 mg/dL (<10)
[2023-10-16 16:34] LABS: Alanine Aminotransferase 62 U/L (6-35); Albumin Level 4.8 g/dL (3.5-5.1); Alkaline Phosphatase 64 U/L (38-126); Anion Gap 8 mmol/L (8-16); Aspartate Amino Transferase 51 U/L (14-36); Bilirubin,Total 0.3 mg/dL (0.2-1.3); Blood Urea Nitrogen 9 mg/dL (7-17); Calcium 9.9 mg/dL (8.4-10.2); Carbon Dioxide 24 mmol/L (22-30); Chloride 106 mmol/L (98-107); Estimated CRCL calculation 103 ml/min; Estimated Glomerular Filt Rate > 60; Glucose 89 mg/dL (65-110); Potassium 4.4 mmol/L (3.4-5.0); Sodium 138 mmol/L (137-145)
[2023-10-16 16:52] LABS: Influenza A QL RT-PCR Negative (Negative); Influenza B QL RT-PCR Negative (Negative); SARS-CoV-2 RNA PCR Negative (Negative)
[2023-10-16] MEDS: ACETAMINOPHEN 500 MG TABLET 1000 MG PO (17:24)
[2023-10-16 17:33] LABS: Amphetamine Screen Urine Negative (Negative); Barbiturate Screen Urine Negative (Negative); Benzodiazepines Screen Urine Negative (Negative); Cannabinoid Screen Urine Negative (Negative); Cocaine Screen Urine Negative (Negative); Methadone Screen Urine Negative (Negative); Opiate Screen Urine Negative (Negative); Phencyclidine Screen Urine Negative (Negative)
== END 2023-10-16 20:41 | disposition home or self-care (01) ==
PROVIDERS: Emergency Provider Physician Assistant; PCP Student in an Organized Health Care Education/Training Program
DX: F31.9 Bipolar disorder, unspecified (principal); Z63.8 Other specified problems related to primary support group; Z11.52 Encounter for screening for COVID-19; E66.9 Obesity, unspecified; Z68.34 Body mass index [BMI] 34.0-34.9, adult; E28.2 Polycystic ovarian syndrome; R73.03 Prediabetes; F41.9 Anxiety disorder, unspecified; F17.290 Nicotine dependence, other tobacco product, uncomplicated; Z90.49 Acquired absence of other specified parts of digestive tract; Z79.84 Long term (current) use of oral hypoglycemic drugs; Z79.899 Other long term (current) drug therapy
CPT/HCPCS: 36415; 80053; 80307; 81001; 81025; 84443; 85025; 87636; 99284; A9270

== ENCOUNTER 2023-10-29 19:03 | Observation (INO) | payer OTHER, SELFPAY ==
[2023-10-29] VITALS (7 sets, daily range): BP systolic 100–127; BP diastolic 68–83; PULSE 99–118; RESP 15–22; TEMP 37.2; O2SAT 96–98; BMI 38.6; BMI 78.0
--- NOTE | 2023-10-29 19:20 | ECG_ITS ---
Measurements Intervals [place] Rate: 109 P: 48 [place]: 157 QRS: 56 QRSD: 82 T: 26 QT: 317 QTc: 429 Interpretive Statements SINUS TACHYCARDIA ABNORMAL RHYTHM ECG COMPARED TO ECG 01/17/2023 14:21:40 SINUS TACHYCARDIA NOW PRESENT Electronically Signed On 10-30-2023 13:16:58 [employer]ING [employer] SELECT[employer] by Javier Harris M.D.
--- NOTE | 2023-10-29 19:26 | PC.NURSE ---
Poison control notified at this time. Poison control recommends 4 hour Tylenol level and blood alcohol, serum osmoality, and cmp.
[2023-10-29 19:52] LABS: Appearance Urine Clear (Clear); Bilirubin Urine Negative (Negative); Blood Urine Negative (Negative); Color Urine Yellow (Yellow); Glucose Urine UA Negative (Negative); Ketones Urine Negative (Negative); Leukocyte Esterase Ur Negative LEU/UL (Negative); Nitrate Urine Negative (Negative); Protein Urine Negative (Negative); Specific Grav Ur 1.027 (1.001-1.035); Urobilinogen Urine 0.2 mg/dL (<2.0); pH Urine 5.5 (5.0-9.0)
--- NOTE | 2023-10-29 19:57 | ED.GENADULT ---
HPI - General Adult General Chief complaint: Overdose Stated complaint: od Time Seen by Provider: 10/29/23 19:30 History of Present Illness HPI narrative: Patient 23-year-old female who presents emergency department with chief complaint of suicidal ideation. Patient reports that she has been having a bad week and reports that she had thoughts of harming herself. The patient reports he took a handful of Tylenol and drank rubbing alcohol. Patient reports she has had prior suicidal attempts and reports that she has had prior hospitalizations. Related Data Home Medications Medication Instructions Recorded Confirmed buspirone 5 mg tablet 5 mg PO BID 12/21/21 05/17/23 cholecalciferol (vitamin D3) 1,250 1,250 mcg PO MONTHLY 02/21/22 05/17/23 mcg (50,000 unit) tablet metformin 500 mg tablet 500 mg PO BID 12/12/22 05/17/23 lamotrigine 100 mg tablet 100 mg PO DAILY 01/11/23 05/17/23 (Lamictal) spironolactone 50 mg tablet 100 mg PO BID 01/11/23 05/17/23 Allergies Allergy/AdvReac Type Severity Reaction Status Date / Time diphenhydramine Allergy Severe Anaphylactic Verified 10/16/23 16:17 [From Benadryl] Shock lidocaine Allergy Severe Anaphylactic Verified 10/16/23 16:17 Shock Review of Systems Review of Systems: A 10 system review of systems was completed on the patient and is negative except for what is stated in the HPI. Nursing and ancillary documentation was reviewed. [facility] Past Medical History Medical History Anxiety Bipolar disorder Depression Initiation of Depo Provera Insertion of Nexplanon 03/2021 Obesity Polycystic ovarian syndrome Pre-diabetes Surveillance for Depo-Provera contraception Surgical History Surgical History History of excision of lesion excision 1 cm left breast skin lesion on 05/03/23 History of laparoscopic appendectomy 05/28/22 Hx laparoscopic cholecystectomy 01/25/23 No pertinent past surgical history Family History Family History Father Hypertension Mother Hypertension Social History Social History Smoking status: Light tobacco smoker Tobacco type: e-cigarettes/vaping Additional smoking assessment comments: Vapes daily with nicotine-containing substance for the past few months Alcohol intake: never Substance use: never Substance use type: does not use Living arrangements: with family Occupation/Education: occupation Additional occupation/education comments: Works in [employer] at [employer] Gender identity (if verbalized by the patient): Female Spiritual care concerns: No Exam Narrative: GENERAL: Well-appearing, well-nourished, and in no acute distress. HEAD: Normocephalic, atraumatic. EYES: PERRLA and EOMI. ENT: Nares clear, no rhinorrhea or epistaxis. Mucous membranes moist. NECK: Supple. CHEST: Clear to auscultation. No respiratory distress. HEART: Regular rate and rhythm. No murmur heard. Normal peripheral pulses. ABDOMEN: Soft, nontender, nondistended, normal active bowel sounds. EXTREMITIES: Normal range of motion. No edema. SKIN: Warm, dry, no rash. NEURO: No focal deficits. Alert and oriented x3. PSYCH: Expresses suicidal ideation Course Vital Signs Vital signs: Vital Signs Temperature 37.2 C 10/29/23 19:10 Pulse Rate 111 H 10/29/23 19:10 Respiratory Rate 15 10/29/23 19:10 Blood Pressure 127/76 10/29/23 19:10 Pulse Oximetry 96 10/29/23 19:10 Oxygen Delivery Room Air 10/29/23 19:10 Temperature 37.2 C 10/29/23 19:10 Pulse Rate 108 H 10/29/23 20:16 Respiratory Rate 15 10/29/23 20:16 Blood Pressure 114/83 10/29/23 20:16 Pulse Oximetry 96 10/29/23 20:16 Oxygen Delivery Room Air 10/29/23 19:10 Medical Dec
[2023-10-29 19:58] LABS: Basophils Percent Auto 0.5 % (0.2-1.2); Eosinophils Absolute Auto 0.1 K/mm3 (0-0.3); Eosinophils Percent Auto 0.7 % (0-4.4); Hematocrit 40.3 % (37.0-47.0); Hemoglobin 13.3 g/dL (12.0-15.0); Immature Granulocyte Absolute 0.04 K/mm3 (0.00-0.031); Immature Granulocyte Percent A 0.5 % (0-0.5); Lymphocytes Absolute Auto 3.07 K/mm3 (0.9-3.2); Lymphocytes Percent Auto 37.7 % (18.3-44.2); Mean Corpuscular Hemoglobin 29.7 pg (26-34); Mean Platelet Volume 9.5 fl (7.4-10.4); Monocytes Absolute Auto 0.8 K/mm3 (0.1-0.6); Monocytes Percent Auto 10.2 % (2.6-8.5); Neutrophils Absolute Auto 4.1 K/mm3 (1.3-6.7); Neutrophils Percent Auto 50.4 % (45.5-73.1); Platelet Count Result 237 k/mm3 (150-375); Red Blood Count 4.48 M/mm3 (4.2-5.4); Red Cell Distribution Width 12.5 % (11.5-14.5); White Blood Count 8.2 K/mm3 (4.5-10.0)
[2023-10-29 20:04] LABS: Add Urine Microscopic? NO
[2023-10-29 20:07] LABS: Amphetamine Screen Urine Negative (Negative); Barbiturate Screen Urine Negative (Negative); Benzodiazepines Screen Urine Negative (Negative); Cannabinoid Screen Urine Negative (Negative); Cocaine Screen Urine Negative (Negative); Methadone Screen Urine Negative (Negative); Opiate Screen Urine Negative (Negative); Phencyclidine Screen Urine Negative (Negative)
[2023-10-29 20:11] LABS: Pregnancy On Board Control Positive; Urine Pregnancy Test Negative
[2023-10-29] MEDS: SODIUM CHLORIDE 0.9% IV 1,000 ML 999 ML IV CONT ×3 (20:13→22:04)
[2023-10-29 20:14] LABS: Alanine Aminotransferase 43 U/L (6-35); Albumin Level 4.2 g/dL (3.5-5.1); Alkaline Phosphatase 52 U/L (38-126); Anion Gap 15 mmol/L (8-16); Aspartate Amino Transferase 41 U/L (14-36); Bilirubin,Total 0.3 mg/dL (0.2-1.3); Blood Urea Nitrogen 14 mg/dL (7-17); Carbon Dioxide 16 mmol/L (22-30); Chloride 107 mmol/L (98-107); Estimated CRCL calculation 132 ml/min; Estimated Glomerular Filt Rate > 60; Glucose 100 mg/dL (65-110); Sodium 138 mmol/L (137-145)
[2023-10-29] MEDS: ONDANSETRON INJ 4 MG/2 ML VIAL IV PUSH ×2 (20:14→21:23)
[2023-10-29 20:21] LABS: Ethanol < 10 mg/dL (<10); Salicylate < 1.0 mg/dL (2-20)
[2023-10-29 20:28] LABS: Influenza A QL RT-PCR Negative (Negative); Influenza B QL RT-PCR Negative (Negative); RSV RNA, RT-PCR Negative (Negative); SARS-CoV-2 RNA PCR Negative (Negative)
[2023-10-29 20:45] LABS: Acetaminophen 240 ug/mL (10-30)
[2023-10-29] MEDS: ACETYLCYSTEINE IV 15,000 MG in DEXTROSE 5% IN WATER 200 ML 275 MG IVPB (21:21)
--- NOTE | 2023-10-29 21:37 | PM.IMHP ---
H&P: HPI History of Present Illness Date/Time: 10/29/23 21:37 Chief Complaint: suicide attempt Narrative: 23F w/ PMH depression and anxiety, suicide attempt, obesity, PCOS, pre diabetes presents with suicide attempt. She took two handfuls of Tylenol 500mg tabs along with 200ml of isopropyl alcohol at 1830 on 10/29/23 (day of admission). She has a distant history of suicide attempt. She reports, things are tough and upon further questioning reports her brother disowned her. She denies any other acute events. The mother is present in room and reports just last week she was discharged from [facility] for medication adjustment for a voluntary admission. She reports taking her prescribed meds otherwise. Denies any other illicit drug use regularly. Current symptoms include feeling out of it . She still feels like she wants to end her life. Review of Systems Review of Systems: All systems reviewed & are unremarkable except as noted in HPI and below (HPI) PMFSH Past Medical History Medical History Anxiety Bipolar disorder Depression Initiation of Depo Provera Insertion of Nexplanon 03/2021 Obesity Polycystic ovarian syndrome Pre-diabetes Surveillance for Depo-Provera contraception Surgical History Surgical History History of excision of lesion excision 1 cm left breast skin lesion on 05/03/23 History of laparoscopic appendectomy 05/28/22 Hx laparoscopic cholecystectomy 01/25/23 No pertinent past surgical history Family History Family History Father Hypertension Mother Hypertension Social History Social History Smoking status: Light tobacco smoker Tobacco type: e-cigarettes/vaping Additional smoking assessment comments: Vapes daily with nicotine-containing substance for the past few months Alcohol intake: never Substance use: never Substance use type: does not use Living arrangements: with family Occupation/Education: occupation Additional occupation/education comments: Works in [employer] at [employer] Gender identity (if verbalized by the patient): Female Spiritual care concerns: No Meds Home Medications and Allergies Home Medications Medication Instructions Recorded Confirmed Type buspirone 5 mg tablet 10 mg PO BID 12/21/21 05/17/23 History cholecalciferol (vitamin D3) 1,250 1,250 mcg PO MONTHLY 02/21/22 05/17/23 History mcg (50,000 unit) tablet metformin 500 mg tablet 500 mg PO BID 12/12/22 10/29/23 History spironolactone 50 mg tablet 100 mg PO BID 01/11/23 05/17/23 History medroxyprogesterone 150 mg/mL 150 mg IM [id number] #1 mL 06/03/23 10/29/23 Rx intramuscular syringe famotidine 20 mg tablet 20 mg PO DAILY #30 tabs 06/11/23 10/29/23 Rx ondansetron 4 mg disintegrating 4 mg PO Q6H PRN nausea and 06/11/23 Rx tablet vomiting #10 tabs epinephrine 0.3 mg/0.3 mL 0.3 mg IM ONCE PRN Allergic 10/29/23 10/29/23 History injection syringe Reaction lamotrigine 25 mg tablet 50 mg PO DAILY 10/29/23 10/29/23 History norethindrone 1 mg-ethinyl 1 tablet PO DAILY 10/29/23 10/29/23 History estradiol 20 mcg (21)-iron 75 mg (7) tablet ([place] Fe 11/23 ()) Allergies Allergy/AdvReac Type Severity Reaction Status Date / Time diphenhydramine Allergy Severe Anaphylactic Verified 10/16/23 16:17 [From Benadryl] Shock lidocaine Allergy Severe Anaphylactic Verified 10/16/23 16:17 Shock Vital Signs Vital Signs - 24 hr 10/29/23 19:10 10/29/23 20:16 Temperature 98.9 F Pulse Rate 111 H 108 H Respiratory Rate 15 15 Blood Pressure 127/76 114/83 Pulse Oximetry 96 96 Oxygen Delivery Room Air Exam Const: General: comfortable and no acute distress Other: sluggish Eyes: Sclera: sclerae norm
--- NOTE | 2023-10-29 21:49 | PC.NURSE ---
Poison control called back for update. Shared pertinent labs with them. One lab still pending at time of call. They will call ICU for further follow up.
[2023-10-29] MEDS: PROCHLORPERAZINE EDISYLATE 10 MG/2 ML VIAL IV PUSH (21:57)
--- NOTE | 2023-10-29 22:52 | ADMGEN ---
This patient, Iveth Ashraf, was admitted to Intensive Care Unit-11. Patient/family oriented to hospital policies and general routines including ID bracelet, bed and alarms, visiting hours, pain management, procedures, bathroom and other care routines, personal items, smoking policy, room service/diet, and visiting hours. Information on how to activate the Rapid Response Team has been discussed. Patient/Family are encouraged to report perceived risks to care and to ask questions if they do not understand what they are told or what they should do. pt on suicide precautions mom at bedside for admission questions
[2023-10-29] MEDS: ACETYLCYSTEINE IV 5,000 MG in DEXTROSE 5% IN WATER 500 ML 131.25 MG IVPB (23:13)
[2023-10-30] VITALS (12 sets, daily range): BP systolic 91–135; BP diastolic 61–83; PULSE 76–111; RESP 14–26; TEMP 36.4–36.9; O2SAT 96–100
[2023-10-30] MEDS: SODIUM CHLORIDE 0.9% IV 1,000 ML 125 ML IV CONT (00:06)
[2023-10-30 00:27] LABS: Glucose Point of Care 160 mg/dl (65-105)
[2023-10-30] MEDS: ONDANSETRON INJ 4 MG/2 ML VIAL IV PUSH (01:49)
[2023-10-30 03:59] LABS: Basophils Percent Auto 0.4 % (0.2-1.2); Hematocrit 38.5 % (37.0-47.0); Hemoglobin 12.9 g/dL (12.0-15.0); Immature Granulocyte Absolute 0.04 K/mm3 (0.00-0.031); Immature Granulocyte Percent A 0.5 % (0-0.5); Lymphocytes Absolute Auto 1.57 K/mm3 (0.9-3.2); Lymphocytes Percent Auto 20.6 % (18.3-44.2); Mean Corpuscular HGB Conc 33.5 g/dl (32-36); Mean Corpuscular Hemoglobin 29.9 pg (26-34); Mean Corpuscular Volume 89.3 fl (80-100); Mean Platelet Volume 9.5 fl (7.4-10.4); Monocytes Absolute Auto 0.5 K/mm3 (0.1-0.6); Monocytes Percent Auto 6.7 % (2.6-8.5); Neutrophils Absolute Auto 5.5 K/mm3 (1.3-6.7); Neutrophils Percent Auto 71.8 % (45.5-73.1); Platelet Count Result 219 k/mm3 (150-375); Red Blood Count 4.31 M/mm3 (4.2-5.4); Red Cell Distribution Width 12.4 % (11.5-14.5); White Blood Count 7.6 K/mm3 (4.5-10.0)
[2023-10-30 04:12] LABS: Acetaminophen 75 ug/mL (10-30)
[2023-10-30 04:16] LABS: Alanine Aminotransferase 48 U/L (6-35); Albumin Level 3.7 g/dL (3.5-5.1); Alkaline Phosphatase 31 U/L (38-126); Anion Gap 11 mmol/L (8-16); Aspartate Amino Transferase 44 U/L (14-36); Bilirubin,Total 0.4 mg/dL (0.2-1.3); Blood Urea Nitrogen 8 mg/dL (7-17); Carbon Dioxide 14 mmol/L (22-30); Chloride 108 mmol/L (98-107); Estimated CRCL calculation 158 ml/min; Estimated Glomerular Filt Rate > 60; Glucose 123 mg/dL (65-110); Magnesium 1.8 mg/dL (1.6-2.3); Potassium 4.2 mmol/L (3.4-5.0); Sodium 133 mmol/L (137-145)
--- NOTE | 2023-10-30 05:00 | ECG_ITS ---
Measurements Intervals [place] Rate: 99 P: -32 DC: 127 QRS: -17 QRSD: 89 T: -23 QT: 340 QTc: 438 Interpretive Statements SINUS RHYTHM COMPARED TO ECG 10/29/2023 19:29:54 SINUS RHYTHM NOW PRESENT Electronically Signed On 10-30-2023 21:06:29 BIOMETRICIAN by Javier Harris M.D.
[2023-10-30 06:09] LABS: Glucose Point of Care 122 mg/dl (65-105)
[2023-10-30 08:34] LABS: INR 1.1; Partial Thromboplastin Time 25.5 SECONDS (22.3-36.8); Prothrombin Time 15.2 Seconds (11.1-14.7)
[2023-10-30] MEDS: PANTOPRAZOLE SODIUM IV 40 MG VIAL IV PUSH (10:27)
--- NOTE | 2023-10-30 12:54 | WPDCNINT ---
Assessment and Plan Assessment and plan (1) Acetaminophen overdose: Code(s): T39.1X1A - Poisoning by 4-Aminophenol derivatives, accidental (unintentional), initial encounter Status: Acute Assessment and Plan: 10/29: Patient presented the ED with complaints of suicide attempt, after she took a handful of Tylenol and drank rubbing alcohol. Patient was started on N acetyl cystine due to her Tylenol level being 240 -I suggested to the ER physician to give with 3 L IV fluids which were given -patient on maintenance IV fluids -continue N-acetylcysteine, poison Control is following the patient (2) Suicidal ideation: Code(s): R45.851 - Suicidal ideations Status: Acute Assessment and Plan: Patient in the ER patient and say that she was suicidal -this morning she denies any homicidal or suicidal ideation -once she is off N-acetylcysteine and medically stable will have care coordination evaluate the patient (3) Bipolar disorder: Qualifiers: Active/Remission status: remission status unspecified Qualified Code(s): F31.9 - Bipolar disorder, unspecified Code(s): F31.9 - Bipolar disorder, unspecified Status: Acute Assessment and Plan: Patient does have a history of anxiety and depression and has had suicidal attempt in the past and has been and admitted to a psych facility in the past also she was recently discharged from [place] Plan DVT prophylaxis: SCDs Stress ulcer prophylaxis: Protonix Nutrition: Regular diet Code Status: Full code Critical Care Time Spent: 43 minutes Due to a high probability of clinically significant, life threatening deterioration, the patient required my highest level of preparedness to intervene emergently and I personally spent this critical care time directly and personally managing the patient. This critical care time included obtaining a history; examining the patient; pulse oximetry; ordering and review of studies; arranging urgent treatment with development of a management plan; evaluation of patient's response to treatment; frequent reassessment; and discussions with other providers. It was exclusive of separately billable procedures and treating other patients and teaching time. Please see Assessment and Plan section and the rest of the note for further information on patient assessment and treatment This dictation may have been done utilizing a voice recognition system. Attempts have been made to correct errors. However, there may be uncorrected grammatical, spelling, and recognitions errors present. Fitness Professional Consult Note Consult date: 10/30/23 Reason for consult: Tylenol and rubbing alcohol overdose, Tylenol toxicity with elevated Tylenol level HPI: Iveth Ashraf is a 23 year old female with past medical history of anxiety, bipolar disorder, depression, polycystic ovarian syndrome, pre diabetes, obesity, presented the ED with complains of suicidal behavior, patient stated that she has been having a bad week and reports that she thought of harming herself and took a handful of Tylenol and drank rubbing alcohol. She has had prior suicide times and previous hospitalizations. She was discharged from the [facility] last week. Patient was given 3 L IV fluids in the ER, started on N-acetylcystine and transferred to the ICU for further management 10/30/2023: Patient seen and examined the ICU. Patient is awake, alert, oriented, nonfocal. Denies any homicidal or suicidal ideation at this time. Patient is hemodynamically stable. Urine output has been adequate, afebrile. Remains on N acetyl cystine. Poison Control is following patient denies any chest pain, shortness of breath, abdominal pain, nausea vomiting at this time Review of Systems Review of Systems: All systems reviewed & are unremarkable except as noted in HPI and below PMFSH Past Medical History Medical History
[2023-10-30 17:00] LABS: Glucose Point of Care 114 mg/dl (65-105)
[2023-10-30 18:57] LABS: Acetaminophen < 10 ug/mL (10-30)
[2023-10-30 19:02] LABS: Alanine Aminotransferase 81 U/L (6-35); Aspartate Amino Transferase 70 U/L (14-36)
--- NOTE | 2023-10-30 19:26 | PHAR ---
RX [id number] IDENTIFIED DRUG NAME: BLISOVI FE 11/23 - YELLOW TAB INGREDIENTS: ETHINYL ESTRADIOL -- 20 MCG NORETHINDRONE ACETATE -- 1 MG RELATED DOCUMENTS: DRUGDEX EVALUATIONS - NORETHINDRONE ACETATE/ETHINYL ESTRADIOL AND FERROUS FUMARATE COLOR: YELLOW SHAPE: COMANCHE IMPRINT: NAKUL ; J23
--- NOTE | 2023-10-30 19:32 | PC.NURSE ---
results for tylenol and liver panel relayed to Poison control and Dr ross. will perform follow up labs in the AM and stop acetylctsteine jn
[2023-10-31 04:01] LABS: Basophils Percent Auto 0.5 % (0.2-1.2); Eosinophils Percent Auto 0.3 % (0-4.4); Hematocrit 36.7 % (37.0-47.0); Hemoglobin 12.2 g/dL (12.0-15.0); Immature Granulocyte Absolute 0.03 K/mm3 (0.00-0.031); Immature Granulocyte Percent A 0.5 % (0-0.5); Lymphocytes Absolute Auto 2.66 K/mm3 (0.9-3.2); Lymphocytes Percent Auto 43.6 % (18.3-44.2); Mean Corpuscular HGB Conc 33.2 g/dl (32-36); Mean Corpuscular Hemoglobin 29.8 pg (26-34); Mean Corpuscular Volume 89.5 fl (80-100); Mean Platelet Volume 9.6 fl (7.4-10.4); Monocytes Absolute Auto 0.5 K/mm3 (0.1-0.6); Monocytes Percent Auto 7.5 % (2.6-8.5); Neutrophils Absolute Auto 2.9 K/mm3 (1.3-6.7); Neutrophils Percent Auto 47.6 % (45.5-73.1); Platelet Count Result 216 k/mm3 (150-375); Red Cell Distribution Width 12.8 % (11.5-14.5); White Blood Count 6.1 K/mm3 (4.5-10.0)
[2023-10-31 04:08] LABS: Acetaminophen < 10 ug/mL (10-30); Ammonia < 9 umol/L (9-30)
[2023-10-31 04:14] LABS: Alanine Aminotransferase 78 U/L (6-35); Albumin Level 3.5 g/dL (3.5-5.1); Alkaline Phosphatase 50 U/L (38-126); Anion Gap 6 mmol/L (8-16); Aspartate Amino Transferase 55 U/L (14-36); Bilirubin,Total 0.4 mg/dL (0.2-1.3); Blood Urea Nitrogen 4 mg/dL (7-17); Calcium 8.7 mg/dL (8.4-10.2); Carbon Dioxide 22 mmol/L (22-30); Chloride 108 mmol/L (98-107); Estimated CRCL calculation 158 ml/min; Estimated Glomerular Filt Rate > 60; Glucose 87 mg/dL (65-110); Magnesium 1.9 mg/dL (1.6-2.3); Phosphorus 3.7 mg/dL (2.5-4.5); Potassium 3.9 mmol/L (3.4-5.0); Sodium 136 mmol/L (137-145)
[2023-10-31 07:37] LABS: Glucose Point of Care 91 mg/dl (65-105)
[2023-10-31] MEDS: PANTOPRAZOLE SODIUM IV 40 MG VIAL IV PUSH (08:11)
[2023-10-31 08:22] VITALS: BP 122/88; PULSE 96; RESP 16; TEMP 36.8; O2SAT 98
--- NOTE | 2023-10-31 09:19 | PM.IMPN ---
Progress Note: A&P Assessment and Plan (1) Acetaminophen overdose: Code(s): T39.1X1A - Poisoning by 4-Aminophenol derivatives, accidental (unintentional), initial encounter Status: Acute Assessment and Plan: 10/29: Patient presented the ED with complaints of suicide attempt, after she took a handful of Tylenol and drank rubbing alcohol. Patient was started on N acetyl cystine due to her Tylenol level being 240 -I suggested to the ER physician to give with 3 L IV fluids which were given -patient on maintenance IV fluids -continue N-acetylcysteine, poison Control is following the patient Stable on current medications, continue current treatment. (2) Suicidal ideation: Code(s): R45.851 - Suicidal ideations Status: Acute Assessment and Plan: Patient in the ER patient and say that she was suicidal -this morning she denies any homicidal or suicidal ideation -once she is off N-acetylcysteine and medically stable will have care coordination evaluate the patient Stable on current medications, continue current treatment. (3) Bipolar disorder: Qualifiers: Active/Remission status: remission status unspecified Qualified Code(s): F31.9 - Bipolar disorder, unspecified Code(s): F31.9 - Bipolar disorder, unspecified Status: Acute Assessment and Plan: Patient does have a history of anxiety and depression and has had suicidal attempt in the past and has been and admitted to a psych facility in the past also she was recently discharged from [place] Stable on current medications, continue current treatment. Plan DVT prophylaxis: lovenox Stress ulcer prophylaxis: Protonix Nutrition: Regular diet Code Status: Full code Subjective Date/time seen: 10/31/23 09:19 Interval history: Patient was seen during the morning rounds today. Slightly depressed. No suicidal ideation. No homicidal ideation. No shortness of breath or chest pain No abdominal pain, no nausea, no vomiting. Review of Systems Review of Systems: All systems reviewed & are unremarkable except as noted in HPI and below Exam Narrative: General: Pleasant female in no acute distress HEENT:? Pupils equal and reactive, sclera is clear, moist oral mucosa Neck:? Supple Respiratory:? Clear to auscultation bilaterally, no wheezing, adequate air entry Cardiac:? S1-S2 normal, regular rate and rhythm Abdomen:? Soft, nontender, nondistended Extremities:? No edema, palpable pedal pulses Neuro:? Patient is awake, alert, oriented x3, nonfocal, answers to questions appropriately and follows simple commands in all extremities Skin:? Warm and dry Psych:? Normal affect and mentation Const: General: comfortable and no acute distress Other: sluggish Eyes: Sclera: sclerae normal Pupils: Equal, round and reactive pupils present Neck: Neck: supple Resp: Effort & Inspection: normal respiratory effort Auscultation: clear to auscultation bilaterally, no crackles, no rales and no rhonchi Cardio: Rate: regular rate Rhythm: regular rhythm Heart sounds: no gallops, no murmurs and no rubs GI: Inspection: non-distended Neuro: Cranial nerves: Yes Equal, round and reactive pupils present Motor exam (neuro): 5/5 motor strength present throughout Extrem: General: no edema Objective Data Vital Signs Vital Signs: Vital Signs - 24 hr 10/30/23 10:00 10/30/23 10:00 10/30/23 12:00 Temperature Pulse Rate 76 76 103 H Respiratory Rate 14 Blood Pressure 91/61 L Pulse Oximetry 100 Oxygen Delivery 10/30/23 12:00 10/30/23 14:00 10/30/23 19:59 Temperature Pulse Rate 103 H 92 92 Respiratory Rate 21 H 18 Blood Pressure 104/78 102/80 Pulse Oximetry 97 96 Oxygen Delivery 10/30/23 20:00 10/30/23 20:03 10/31/23 08:00 Temperature 36.8 C Pulse Rate 92 Respiratory Rate 18 Blood Pressure 122/77 Pulse Oximetry 96 Oxygen Delivery Room Air Room Air 10/31/23 08:22
--- NOTE | 2023-10-31 09:31 | PC.NURSE ---
Patient is medically clear per Dr. Solis.
[2023-10-31] MEDS: lamoTRIgine 50 MG TABLET PO (10:34)
[2023-10-31] MEDS: ONDANSETRON INJ 4 MG/2 ML VIAL IV PUSH (10:34)
[2023-10-31] MEDS: FAMOTIDINE 20 MG TABLET PO (10:35)
--- NOTE | 2023-10-31 11:14 | PM.DS ---
DS: Admitting Diagnosis Discharge Date 10/31/2023 Admitting Diagnosis Suicidal attempt DS: Discharge Diagnosis Discharge Diagnosis (1) Acetaminophen overdose: Code(s): T39.1X1A - Poisoning by 4-Aminophenol derivatives, accidental (unintentional), initial encounter Status: Acute Assessment and Plan: 10/29: Patient presented the ED with complaints of suicide attempt, after she took a handful of Tylenol and drank rubbing alcohol. Patient was started on N acetyl cystine due to her Tylenol level being 240 -I suggested to the ER physician to give with 3 L IV fluids which were given -patient on maintenance IV fluids -continue N-acetylcysteine, poison Control is following the patient Stable on current medications, continue current treatment. (2) Suicidal ideation: Code(s): R45.851 - Suicidal ideations Status: Acute Assessment and Plan: Patient in the ER patient and say that she was suicidal -this morning she denies any homicidal or suicidal ideation -once she is off N-acetylcysteine and medically stable will have care coordination evaluate the patient Stable on current medications, continue current treatment. (3) Bipolar disorder: Qualifiers: Active/Remission status: remission status unspecified Qualified Code(s): F31.9 - Bipolar disorder, unspecified Code(s): F31.9 - Bipolar disorder, unspecified Status: Acute Assessment and Plan: Patient does have a history of anxiety and depression and has had suicidal attempt in the past and has been and admitted to a psych facility in the past also she was recently discharged from [place] Stable on current medications, continue current treatment. Plan Suicidal attempt DS: Summary Hospital Course Reason for hospitalization: history of bipolar disorder Suicidal attempt Hospital Course: 23 years old female with history of bipolar disorder who was admitted through the emergency with complaint of having taken an overdose on acetaminophen as patient wanted to kill herself. Poison control was contacted and management was started. Patient is feeling better no patient mood is also is stable Patient was discharged to inpatient psych facility in stable condition. Time Spent with Patient Time attestation: Total time spent providing and/or coordinating discharge services: Exam Narrative: General: Pleasant female in no acute distress HEENT:? Pupils equal and reactive, sclera is clear, moist oral mucosa Neck:? Supple Respiratory:? Clear to auscultation bilaterally, no wheezing, adequate air entry Cardiac:? S1-S2 normal, regular rate and rhythm Abdomen:? Soft, nontender, nondistended Extremities:? No edema, palpable pedal pulses Neuro:? Patient is awake, alert, oriented x3, nonfocal, answers to questions appropriately and follows simple commands in all extremities Skin:? Warm and dry Psych:? Normal affect and mentation Const: General: comfortable and no acute distress Other: sluggish Eyes: Sclera: sclerae normal Pupils: Equal, round and reactive pupils present Neck: Neck: supple Resp: Effort & Inspection: normal respiratory effort Auscultation: clear to auscultation bilaterally, no crackles, no rales and no rhonchi Cardio: Rate: regular rate Rhythm: regular rhythm Heart sounds: no gallops, no murmurs and no rubs GI: Inspection: non-distended Neuro: Cranial nerves: Yes Equal, round and reactive pupils present Motor exam (neuro): 5/5 motor strength present throughout Extrem: General: no edema DS: Data Data Completed and Pending Labs on day of discharge: Labs from last 24 hours 10/31/23 10/31/23 10/30/23 07:24 03:38 17:31 WBC 6.1 RBC 4.10 L Hgb 12.2 Hct 36.7 L MCV 89.5 MCH 29.8 MCHC 33.2 RDW 12.8 Plt Count 216 MPV 9.6 Immature Gran % (Auto) 0.5 Neut % (Auto) 47.6 Lymph % (Auto) 43.6 Harrison % (Auto) 7.5 Eos % (Auto) 0.3 Baso % (Auto) 0.5
[2023-10-31 12:08] LABS: Glucose Point of Care 78 mg/dl (65-105)
[2023-10-31] MEDS: MAG HYDROX/AL HYDROX/SIMETH 30 ML UDC PO ×2 (13:13→22:22)
[2023-10-31 14:45] LABS: SARS-CoV-2 RNA PCR Negative (Negative)
[2023-10-31 16:00] VITALS: BP 118/76; PULSE 88; RESP 18; O2SAT 98
[2023-10-31 16:10] LABS: Glucose Point of Care 75 mg/dl (65-105)
[2023-10-31] MEDS: SPIRONOLACTONE 50 MG TABLET 100 MG PO (17:40)
[2023-10-31] MEDS: busPIRone HCL 5 MG TABLET 10 MG PO (17:40)
[2023-10-31] MEDS: metFORMIN HCL 500 MG TABLET PO (17:41)
[2023-10-31 19:44] VITALS: PULSE 90; RESP 18; O2SAT 99
[2023-10-31 19:45] VITALS: BP 104/77; PULSE 90; RESP 16; TEMP 37.1; O2SAT 99
[2023-10-31 22:25] LABS: Glucose Point of Care 114 mg/dl (65-105)
[2023-11-01 04:23] LABS: Alanine Aminotransferase 75 U/L (6-35); Albumin Level 3.7 g/dL (3.5-5.1); Alkaline Phosphatase 51 U/L (38-126); Anion Gap 9 mmol/L (8-16); Aspartate Amino Transferase 47 U/L (14-36); Bilirubin,Total 0.5 mg/dL (0.2-1.3); Blood Urea Nitrogen 8 mg/dL (7-17); Calcium 8.9 mg/dL (8.4-10.2); Carbon Dioxide 22 mmol/L (22-30); Chloride 106 mmol/L (98-107); Estimated CRCL calculation 137 ml/min; Estimated Glomerular Filt Rate > 60; Glucose 87 mg/dL (65-110); Potassium 3.8 mmol/L (3.4-5.0); Sodium 137 mmol/L (137-145)
[2023-11-01 06:00] VITALS: BP 110/68; PULSE 85; RESP 16; TEMP 36.8; O2SAT 99
[2023-11-01 07:50] LABS: Glucose Point of Care 83 mg/dl (65-105)
[2023-11-01] MEDS: FAMOTIDINE 20 MG TABLET PO (09:32)
[2023-11-01] MEDS: ENOXAPARIN 40 MG/0.4 ML SYRINGE SUB-Q (09:32)
[2023-11-01] MEDS: lamoTRIgine 50 MG TABLET PO (09:32)
[2023-11-01] MEDS: SPIRONOLACTONE 50 MG TABLET 100 MG PO ×2 (09:32→17:20)
[2023-11-01] MEDS: busPIRone HCL 5 MG TABLET 10 MG PO ×2 (09:32→17:20)
[2023-11-01] MEDS: metFORMIN HCL 500 MG TABLET PO ×2 (09:33→17:20)
[2023-11-01 11:42] LABS: Glucose Point of Care 84 mg/dl (65-105)
[2023-11-01] MEDS: MAG HYDROX/AL HYDROX/SIMETH 30 ML UDC PO ×2 (11:49→18:47)
[2023-11-01 14:00] VITALS: BP 121/82; PULSE 102; RESP 18; O2SAT 98
--- NOTE | 2023-11-01 14:25 | PM.IMPN ---
Progress Note: A&P Assessment and Plan (1) Acetaminophen overdose: Code(s): T39.1X1A - Poisoning by 4-Aminophenol derivatives, accidental (unintentional), initial encounter Status: Acute Assessment and Plan: 10/29: Patient presented the ED with complaints of suicide attempt, after she took a handful of Tylenol and drank rubbing alcohol. Patient was started on N acetyl cystine due to her Tylenol level being 240 -I suggested to the ER physician to give with 3 L IV fluids which were given -patient on maintenance IV fluids -continue N-acetylcysteine, poison Control is following the patient Stable on current medications, continue current treatment. Medically stable for discharge (2) Suicidal ideation: Code(s): R45.851 - Suicidal ideations Status: Acute Assessment and Plan: Patient in the ER patient and say that she was suicidal -this morning she denies any homicidal or suicidal ideation -once she is off N-acetylcysteine and medically stable will have care coordination evaluate the patient Stable on current medications, continue current treatment. Plan for transfer for inpatient psychiatry treatment (3) Bipolar disorder: Qualifiers: Active/Remission status: remission status unspecified Qualified Code(s): F31.9 - Bipolar disorder, unspecified Code(s): F31.9 - Bipolar disorder, unspecified Status: Acute Assessment and Plan: Patient does have a history of anxiety and depression and has had suicidal attempt in the past and has been and admitted to a psych facility in the past also she was recently discharged from [place] Stable on current medications, continue current treatment. Plan Suicidal attempt Subjective Date/time seen: 11/01/23 14:25 Interval history: Complains of some nausea and vomiting. No abdominal pain. Review of Systems Review of Systems: All systems reviewed & are unremarkable except as noted in HPI and below Exam Narrative: General: Pleasant female in no acute distress HEENT:? Pupils equal and reactive, sclera is clear, moist oral mucosa Neck:? Supple Respiratory:? Clear to auscultation bilaterally, no wheezing, adequate air entry Cardiac:? S1-S2 normal, regular rate and rhythm Abdomen:? Soft, nontender, nondistended Extremities:? No edema, palpable pedal pulses Neuro:? Patient is awake, alert, oriented x3, nonfocal, answers to questions appropriately and follows simple commands in all extremities Skin:? Warm and dry Psych:? Normal affect and mentation Objective Data Vital Signs Vital Signs: Vital Signs - 24 hr 10/31/23 16:00 10/31/23 19:44 10/31/23 19:45 Temperature 98.8 F Pulse Rate 88 90 90 Respiratory Rate 18 18 16 Blood Pressure 118/76 104/77 Pulse Oximetry 98 99 99 Oxygen Delivery Room Air 11/01/23 06:00 11/01/23 14:00 11/01/23 08:00 Temperature 98.2 F Pulse Rate 85 102 H Respiratory Rate 16 18 Blood Pressure 110/68 121/82 Pulse Oximetry 99 98 Oxygen Delivery Room Air Intake/Output Intake/Output: Intake & Output 10/29/23 10/30/23 10/31/23 11/01/23 23:59 23:59 23:59 23:59 Intake Total 3275 3172 647 480 Output Total 575 2700 1100 1150 Balance [phone] -[phone] -[phone] Meds/Results Medications: Active Medications Generic Name Dose Route Start Last Admin Trade Name Freq PRN Reason Stop Dose Admin Al Hydrox/Mg Hydrox/Simethicone 30 ml 10/31/23 10:24 11/01/23 11:49 Mag Hydrox/Al Hydrox/Simeth 30 Ml Udc PO 30 ml Q6H PRN Administration Indigestion Buspirone HCl 10 mg 10/31/23 17:00 11/01/23 09:32 Buspirone Hcl 5 Mg Tablet PO 10 mg BID MARGARET Administration Dextrose 12.5 gm 10/29/23 21:30 Dextrose 50% 25 Gm/50 Ml Syringe IV PUSH PRN PRN Hypoglycemia Protocol Enoxaparin Sodium 40 mg 11/01/23 09:00 11/01/23 09:32 Enoxaparin 40 Mg/0.4 Ml Syringe SUB-Q 40 mg DAILY MARGARET Administration Famotidine 20 mg 10/31/23 09:00 11/01/23 09
[2023-11-01 16:12] LABS: Glucose Point of Care 90 mg/dl (65-105)
[2023-11-01] MEDS: PANTOPRAZOLE 40 MG TABLET PO (17:22)
[2023-11-01 20:00] VITALS: BP 124/81; PULSE 96; RESP 18; TEMP 36.8; O2SAT 100
--- NOTE | 2023-11-01 21:21 | PC.NURSE ---
Spoke with Marisa, in charge of bed placement at [facility], and she states the accepting physician is iWlliam Horvath, and when asked for specific room she stated for her to be brought to the psychiatric unit.
--- NOTE | 2023-11-01 21:43 | PC.NURSE ---
Security made aware that [facility] will be coming to ER entrance for psychiatric transport between 2330 and 0000. [facility] personnel states that he does not need PCS form, only transfer consent and face sheet.
[2023-11-02] MEDS: MAG HYDROX/AL HYDROX/SIMETH 30 ML UDC PO (00:02)
== END 2023-11-02 00:10 | disposition other institution (70) ==
LOC: ANHED 21:03 → ANHICU 10-30 13:48
PROVIDERS: Internal Medicine; Admitting Provider General Practice; Emergency Provider Emergency Medicine; PCP Student in an Organized Health Care Education/Training Program; Visit Provider Internal Medicine
DX: T14.91XA Suicide attempt, initial encounter (principal); T39.1X2A Poisoning by 4-Aminophenol derivatives, intentional self-harm, initial encounter; F41.9 Anxiety disorder, unspecified; F31.9 Bipolar disorder, unspecified; R73.03 Prediabetes; Z11.52 Encounter for screening for COVID-19; E66.9 Obesity, unspecified; Z68.38 Body mass index [BMI] 38.0-38.9, adult; R94.31 Abnormal electrocardiogram [ECG] [EKG]; F17.290 Nicotine dependence, other tobacco product, uncomplicated; Z79.84 Long term (current) use of oral hypoglycemic drugs; Z79.3 Long term (current) use of hormonal contraceptives; Z79.899 Other long term (current) drug therapy
CPT/HCPCS: 36415; 80053; 80307; 81003; 81025; 82140; 82948; 83735; 83930; 84100; 84443; 84450; 84460; 85025; 85610; 85730; 87635; 87637; 93005; 96361; 96365; 96366; 96372; 96375; 96376; 99285; A9270; C9113; G0378; J0132; J0780; J1650; J2405; J7030; J7060; J7070

== ENCOUNTER 2023-12-22 10:27 | Emergency (ER) | payer OTHER, SELFPAY ==
--- NOTE | ~2023-12-22 | CT_ITS ---
EXAMINATION: CT abdomen pelvis wo con DATE: 12/22/2023 11:42 INDICATION: Right flank pain TECHNIQUE: Computed tomography (CT) of the abdomen and pelvis was performed without intravenous contr ast. Automated exposure control and iterative reconstruction technique were employed. The dose-length product was 1110.53 mGy-cm. COMPARISON: 06/11/2023 FINDINGS: Lung bases are clear. Heart size is normal. No pericardial or pleural effusion. Cholecystectomy clips the gallbladder fossa. Liver, spleen, pancreas and bilateral adrenal glands are normal. Kidneys and ureters are normal with no urolithiasis, hydroureteronephrosis or perinephric/ureteral stranding. Rodney endix is not visualized and there are surgical clips at the tip the appendix consistent with prior ap pendectomy. No bowel obstruction. Bladder is normal. Uterus and bilateral adnexa are unremarkable. No free intraperitoneal gas or fluid. No pathologically enlarged abdominal or pelvic lymphadenopathy. M ild thoracolumbar spondylosis. IMPRESSION: 1. No urolithiasis or acute intra-abdominal/pelvic process. Reviewed, dictated and finalized at location A. [employer]
[2023-12-22 10:39] VITALS: BP 127/70; PULSE 93; RESP 14; TEMP 36.5; O2SAT 99
[2023-12-22 10:57] LABS: Appearance Urine Cloudy (Clear); Bacteria Urine 2+ /hpf; Bilirubin Urine Negative (Negative); Blood Urine Negative (Negative); Color Urine Yellow (Yellow); Glucose Urine UA 2+ mg/dL (Negative); Ketones Urine Trace mg/dL (Negative); Leukocyte Esterase Ur Negative LEU/UL (Negative); Need Manual Microscopic Reviewed; Nitrate Urine Negative (Negative); Non Pathogenic Casts 0-2; Protein Urine Trace mg/dL (Negative); RBC Urine 0-2 /hpf (0-2); Squamous Epithelial Cell Urine Moderate /hpf (Few)
[2023-12-22 11:07] LABS: Add Urine Microscopic? YES
[2023-12-22 11:27] LABS: Basophils Percent Auto 0.8 % (0.2-1.2); Eosinophils Absolute Auto 0.1 K/mm3 (0-0.3); Eosinophils Percent Auto 0.9 % (0-4.4); Hematocrit 41.2 % (37.0-47.0); Hemoglobin 13.6 g/dL (12.0-15.0); Immature Granulocyte Absolute 0.01 K/mm3 (0.00-0.031); Immature Granulocyte Percent A 0.2 % (0-0.5); Lymphocytes Absolute Auto 1.85 K/mm3 (0.9-3.2); Mean Corpuscular Hemoglobin 30.2 pg (26-34); Mean Corpuscular Volume 91.4 fl (80-100); Mean Platelet Volume 9.9 fl (7.4-10.4); Monocytes Absolute Auto 0.6 K/mm3 (0.1-0.6); Monocytes Percent Auto 11.6 % (2.6-8.5); Neutrophils Absolute Auto 2.7 K/mm3 (1.3-6.7); Neutrophils Percent Auto 51.5 % (45.5-73.1); Platelet Count Result 239 k/mm3 (150-375); Red Blood Count 4.51 M/mm3 (4.2-5.4); Red Cell Distribution Width 13.2 % (11.5-14.5); White Blood Count 5.3 K/mm3 (4.5-10.0)
[2023-12-22 11:36] LABS: Alanine Aminotransferase 21 U/L (6-35); Alkaline Phosphatase 55 U/L (38-126); Anion Gap 5 mmol/L (8-16); Aspartate Amino Transferase 29 U/L (14-36); Bilirubin,Total 0.3 mg/dL (0.2-1.3); Blood Urea Nitrogen 8 mg/dL (7-17); Calcium 8.7 mg/dL (8.4-10.2); Carbon Dioxide 25 mmol/L (22-30); Chloride 107 mmol/L (98-107); Estimated CRCL calculation 133 ml/min; Estimated Glomerular Filt Rate > 60; Glucose 85 mg/dL (65-110); Sodium 137 mmol/L (137-145)
--- NOTE | 2023-12-22 13:32 | ED.FEMALEGU ---
HPI - Female Genitourinary General Chief complaint: Urogenital-Female Stated complaint: kidney stones Time Seen by Provider: 12/22/23 11:29 Source: patient Mode of arrival: ambulatory Limitations: no limitations History of Present Illness HPI Narrative: Patient is a 23-year-old female who presents to the ED with multiple complaints. Patient reports having pain in her left flank region, right sided abdomen for the last several days. She states pain became worse today, which prompted her presentation. She has been taking Tylenol and ibuprofen without improvement. She reports intermittent nausea, denies any nausea currently. Denies vomiting. Reports intermittent diarrhea over the last couple of days, denies rectal bleeding or melena. Denies fevers. She has a history of kidney stones and states pain feels somewhat similar. Reports recent urinary frequency, denies dysuria, hematuria. Related Data Home Medications Medication Instructions Recorded Confirmed buspirone 5 mg tablet 10 mg PO BID 12/21/21 10/30/23 metformin 500 mg tablet 500 mg PO BID 12/12/22 10/29/23 spironolactone 50 mg tablet 100 mg PO BID 01/11/23 10/30/23 epinephrine 0.3 mg/0.3 mL 0.3 mg IM ONCE PRN Allergic 10/29/23 10/29/23 injection syringe Reaction lamotrigine 25 mg tablet 50 mg PO DAILY 10/29/23 10/29/23 norethindrone 1 mg-ethinyl 1 tablet PO DAILY 10/29/23 10/29/23 estradiol 20 mcg (21)-iron 75 mg (7) tablet (Blisovi Fe 11/23 (28)) Allergies Allergy/AdvReac Type Severity Reaction Status Date / Time diphenhydramine Allergy Severe Anaphylactic Verified 12/22/23 11:23 [From Benadryl] Shock lidocaine Allergy Severe Anaphylactic Verified 12/22/23 11:23 Shock Review of Systems Review of Systems: CONSTITUTIONAL: Denies fever, chills, or sweats. GASTROINTESTINAL: See HPI. GENITOURINARY: Reports urinary frequency. denies dysuria or hematuria. MUSCULOSKELETAL: See HPI. All systems reviewed & are unremarkable except as noted in HPI and below PMFSH Past Medical History Medical History Anxiety Bipolar disorder Depression Initiation of Depo Provera Insertion of Nexplanon 03/2021 Obesity Polycystic ovarian syndrome Pre-diabetes Surveillance for Depo-Provera contraception Surgical History Surgical History History of excision of lesion excision 1 cm left breast skin lesion on 05/03/23 History of laparoscopic appendectomy 05/28/22 Hx laparoscopic cholecystectomy 01/25/23 No pertinent past surgical history Family History Family History Father Hypertension Mother Hypertension Diabetes mellitus Social History Social History Smoking status: Never smoker Tobacco type: e-cigarettes/vaping Additional smoking assessment comments: Vapes daily with nicotine-containing substance for the past few months Alcohol intake: never Substance use: never Substance use type: does not use Living arrangements: with family Occupation/Education: occupation Additional occupation/education comments: Works in [employer] Gender identity (if verbalized by the patient): Female Spiritual care concerns: No Exam Narrative: GENERAL: Well appearing, morbidly obese with BMI of 45.2, non-toxic, in no acute distress. HEAD: Normocephalic, atraumatic. RESPIRATORY: Airway patent, respirations nonlabored. Clear to auscultation bilaterally, no rales, rhonchi, wheezing. CARDIOVASCULAR: Regular rate and rhythm without murmurs, rubs, or gallops. ABDOMINAL: Soft, mild tenderness throughout mid to upper right-sided abdomen, no rebound. Nondistended. Normoactive BS. No significant CVA tenderness on left. MUSCULOSKELETAL: Moves all extremities. No gross deformities. SKIN: Warm, dry, n
[2023-12-22] MEDS: KETOROLAC 30 MG/ML VIAL (*BKC) IV PUSH (13:58)
[2023-12-22] MEDS: SULFAMETHOXAZOLE/TRIMETHOPRIM 800/160 MG DS TABLET 1 TAB PO (13:58)
== END 2023-12-22 14:18 | disposition home or self-care (01) ==
PROVIDERS: Preventive Medicine Aerospace Medicine; Emergency Provider Physician Assistant; PCP Student in an Organized Health Care Education/Training Program
DX: N30.00 Acute cystitis without hematuria (principal); R73.03 Prediabetes; E28.2 Polycystic ovarian syndrome; E66.9 Obesity, unspecified; Z68.42 Body mass index [BMI] 45.0-49.9, adult; F17.290 Nicotine dependence, other tobacco product, uncomplicated; F41.9 Anxiety disorder, unspecified; F31.9 Bipolar disorder, unspecified; Z90.49 Acquired absence of other specified parts of digestive tract; Z79.84 Long term (current) use of oral hypoglycemic drugs
CPT/HCPCS: 36415; 74176; 80053; 81001; 81025; 85025; 87086; 96374; 99284; A9270; J1885

== ENCOUNTER 2023-12-30 15:42 | Emergency (ER) | payer OTHER, SELFPAY ==
--- NOTE | 2023-12-30 15:39 | ECG_ITS ---
Measurements Intervals [place] Rate: 101 P: 55 MT: 151 QRS: 66 QRSD: 81 T: 40 QT: 328 QTc: 427 Interpretive Statements SINUS TACHYCARDIA ABNORMAL RHYTHM ECG COMPARED TO ECG 10/30/2023 13:30:16 SINUS TACHYCARDIA NOW PRESENT Electronically Signed On 12-31-2023 12:23:39 [employer]IC [employer] OFFICER by Maura Nguyen M.D.
[2023-12-30 16:03] VITALS: BP 142/102; PULSE 120; RESP 20; TEMP 37.1; O2SAT 98
[2023-12-30 16:12] LABS: Basophils Percent Auto 0.6 % (0.2-1.2); Eosinophils Percent Auto 0.4 % (0-4.4); Hematocrit 43.8 % (37.0-47.0); Hemoglobin 14.2 g/dL (12.0-15.0); Immature Granulocyte Absolute 0.02 K/mm3 (0.00-0.031); Immature Granulocyte Percent A 0.3 % (0-0.5); Lymphocytes Absolute Auto 1.85 K/mm3 (0.9-3.2); Lymphocytes Percent Auto 26.5 % (18.3-44.2); Mean Corpuscular HGB Conc 32.4 g/dl (32-36); Mean Corpuscular Hemoglobin 29.6 pg (26-34); Mean Corpuscular Volume 91.4 fl (80-100); Mean Platelet Volume 9.7 fl (7.4-10.4); Monocytes Absolute Auto 0.7 K/mm3 (0.1-0.6); Monocytes Percent Auto 10.3 % (2.6-8.5); Neutrophils Absolute Auto 4.3 K/mm3 (1.3-6.7); Neutrophils Percent Auto 61.9 % (45.5-73.1); Platelet Count Result 263 k/mm3 (150-375); Red Blood Count 4.79 M/mm3 (4.2-5.4); Red Cell Distribution Width 13.1 % (11.5-14.5)
[2023-12-30 16:19] LABS: Acetaminophen < 10 ug/mL (10-30); Ethanol < 10 mg/dL (<10); Salicylate < 1.0 mg/dL (2-20)
[2023-12-30 16:22] LABS: Alanine Aminotransferase 61 U/L (6-35); Albumin Level 4.4 g/dL (3.5-5.1); Alkaline Phosphatase 69 U/L (38-126); Anion Gap 9 mmol/L (8-16); Aspartate Amino Transferase 57 U/L (14-36); Bilirubin,Total 0.4 mg/dL (0.2-1.3); Blood Urea Nitrogen 12 mg/dL (7-17); Calcium 8.7 mg/dL (8.4-10.2); Carbon Dioxide 20 mmol/L (22-30); Chloride 108 mmol/L (98-107); Estimated Glomerular Filt Rate > 60; Glucose 112 mg/dL (65-110); Sodium 137 mmol/L (137-145)
--- NOTE | 2023-12-30 16:23 | ED.GENADULT ---
HPI - General Adult General Chief complaint: Psychiatric Symptoms Stated complaint: SI History of Present Illness HPI narrative: 23-year-old female presenting to the emergency department for evaluation for suicidal ideation. Patient was just recently discharged from [facility] for mood stabilization and medication adjustment. Patient states that after she left chest not she did relapse and patient states that she smoked marijuana and drank alcohol on Saturday. Patient got into a verbal argument with her parents became upset went to her bedroom, slammed the door and barricaded herself in the room. Patient did inflict any superficial laceration to her left wrist with intent for self-harm and . Patient states that she did want to . Related Data Home Medications Medication Instructions Recorded Confirmed buspirone 5 mg tablet 10 mg PO BID 12/21/21 10/30/23 metformin 500 mg tablet 500 mg PO BID 12/12/22 10/29/23 spironolactone 50 mg tablet 100 mg PO BID 01/11/23 10/30/23 epinephrine 0.3 mg/0.3 mL 0.3 mg IM ONCE PRN Allergic 10/29/23 10/29/23 injection syringe Reaction lamotrigine 25 mg tablet 50 mg PO DAILY 10/29/23 10/29/23 norethindrone 1 mg-ethinyl 1 tablet PO DAILY 10/29/23 10/29/23 estradiol 20 mcg (21)-iron 75 mg (7) tablet (Blisovi Fe 11/23 (28)) Allergies Allergy/AdvReac Type Severity Reaction Status Date / Time diphenhydramine Allergy Severe Anaphylactic Verified 12/22/23 11:23 [From Benadryl] Shock lidocaine Allergy Severe Anaphylactic Verified 12/22/23 11:23 Shock Review of Systems Review of Systems: All systems reviewed & are unremarkable except as noted in HPI and below PMFSH Past Medical History Medical History Anxiety Bipolar disorder Depression Initiation of Depo Provera Insertion of Nexplanon 03/2021 Obesity Polycystic ovarian syndrome Pre-diabetes Surveillance for Depo-Provera contraception Surgical History Surgical History History of excision of lesion excision 1 cm left breast skin lesion on 05/03/23 History of laparoscopic appendectomy 05/28/22 Hx laparoscopic cholecystectomy 01/25/23 No pertinent past surgical history Family History Family History Father Hypertension Mother Hypertension Diabetes mellitus Social History Social History Smoking status: Never smoker Tobacco type: e-cigarettes/vaping Additional smoking assessment comments: Vapes daily with nicotine-containing substance for the past few months Alcohol intake: never Substance use: never Substance use type: does not use Living arrangements: with family Occupation/Education: occupation Additional occupation/education comments: Works in [employer] at [employer] Gender identity (if verbalized by the patient): Female Spiritual care concerns: No Exam Narrative: APPEARANCE: Well appearing, no pain, no distress, well-nourished. HEAD: normocephalic, atraumatic. EYES: PERRLA/EOMI, conjunctivae clear. NOSE: Normal no drainage EARS:TMS clear with good light reflex. THROAT: Pharynx clear, no exudate. NECK: Supple. No adenopathy, no masses. RESPIRATORY: Airway patent, respirations nonlabored. Clear to auscultation bilaterally, no rales, rhonchi, wheezing. CARDIOVASCULAR: Regular rate and rhythm without murmurs rubs or gallops. ABDOMINAL: Soft, nontender, nondistended, normal bowel sounds MUSCULOSKELETAL: Moves all extremities. Strength/ROM intact, No edema, No calf tenderness. NEURO: Alert. Cranial nerves II through XII intact. Grossly intact SKIN: Superficial laceration to the left wrist Psychiatric: Tearful affect Course Course Emergency Course: At time of sign-out patient is awaiting evaluation by the crisis counselor. V
[2023-12-30 16:45] LABS: SARS-CoV-2 RNA PCR Negative (Negative)
[2023-12-30 17:07] LABS: Appearance Urine Clear (Clear); Bacteria Urine Rare /hpf; Bilirubin Urine Negative (Negative); Blood Urine Negative (Negative); Color Urine Yellow (Yellow); Glucose Urine UA 3+ mg/dL (Negative); Ketones Urine Trace mg/dL (Negative); Leukocyte Esterase Ur Negative LEU/UL (Negative); Nitrate Urine Negative (Negative); Non Pathogenic Casts 0-2; Protein Urine Trace mg/dL (Negative); RBC Urine 0-2 /hpf (0-2); Squamous Epithelial Cell Urine Few /hpf (Few); Urobilinogen Urine 0.2 mg/dL (<2.0); pH Urine 6.5 (5.0-9.0)
[2023-12-30 17:17] LABS: Add Urine Microscopic? YES; Amphetamine Screen Urine Negative (Negative); Barbiturate Screen Urine Negative (Negative); Benzodiazepines Screen Urine Negative (Negative); Cannabinoid Screen Urine Negative (Negative); Cocaine Screen Urine Negative (Negative); Methadone Screen Urine Negative (Negative); Opiate Screen Urine Negative (Negative); Phencyclidine Screen Urine Negative (Negative); Specific Grav Ur 1.044 (1.001-1.035)
--- NOTE | 2023-12-30 18:35 | PC.NURSE ---
[facility] will be here to evaluate pt.
--- NOTE | 2023-12-30 19:47 | ECG_ITS ---
Measurements Intervals [place] Rate: 97 P: 57 MN: 159 QRS: 72 QRSD: 80 T: 48 QT: 332 QTc: 424 Interpretive Statements SINUS RHYTHM COMPARED TO ECG 12/30/2023 16:19:44 THE RATE IS SLOWER Electronically Signed On 12-31-2023 12:25:29 AN/SSN 2 4 OPERATOR by Maura Nguyen M.D.
--- NOTE | 2023-12-30 22:54 | PC.NURSE ---
Faxed guardianship paperwork to [facility], and [facility].
--- NOTE | 2023-12-31 03:08 | PC.NURSE ---
Involuntary paperwork sent to [facility] [place].
[2023-12-31 03:22] VITALS: BP 136/94; PULSE 102; RESP 16; O2SAT 100
--- NOTE | 2023-12-31 04:09 | PC.NURSE ---
Acceptance from [facility]
--- NOTE | 2023-12-31 04:15 | PC.NURSE ---
Report called to Libby HUNTER at [facility]; accepting physician Dr. Arrieta.
--- NOTE | 2023-12-31 04:54 | PC.NURSE ---
Transport by [facility] ETA [phone].
[2023-12-31 06:22] VITALS: BP 122/86; PULSE 86; RESP 16; O2SAT 100
[2023-12-31 07:38] VITALS: BP 126/82; PULSE 96; RESP 16; TEMP 36.2; O2SAT 98
[2023-12-31 09:18] VITALS: BP 133/79; PULSE 96; RESP 17; TEMP 36.7; O2SAT 100
== END 2023-12-31 10:00 ==
PROVIDERS: Emergency Provider Emergency Medicine; PCP Student in an Organized Health Care Education/Training Program
DX: R45.851 Suicidal ideations (principal); F41.9 Anxiety disorder, unspecified; F32.A Depression, unspecified; Z79.899 Other long term (current) drug therapy; Z20.822 Contact with and (suspected) exposure to COVID-19
CPT/HCPCS: 36415; 80053; 80307; 81001; 81025; 84443; 85025; 87086; 87635; 93005; 99285

== ENCOUNTER 2024-01-20 15:50 | Emergency (ER) | payer OTHER, SELFPAY ==
[2024-01-20 16:09] VITALS: RESP 16
[2024-01-20 16:31] VITALS: BP 134/86; PULSE 97; RESP 16; TEMP 36.7; O2SAT 100
--- NOTE | 2024-01-20 17:17 | ED.GENADULT ---
HPI - General Adult General Chief complaint: Psychiatric Symptoms Stated complaint: violent, not taking medications, throwing things Time Seen by Provider: 01/20/24 17:00 Source: patient Mode of arrival: ambulatory Limitations: no limitations History of Present Illness HPI narrative: This is a 24-year-old female who presents to the ED after being dropped off by her family. Patient states that she has been undergoing a lot of family drama and distress at home. States she does not feel safe at home due to family members being violent. Patient reports she has a history of bipolar but has been doing well with her medications lately. She states that she saw her psychiatrist today and everything is going all right. She does endorse being here at the end of December for suicidal ideation but states that she does not feel this way today. She has absolutely no suicidal thoughts or intent. Denies any homicidal thought or intent. She states that she would like to be discharged. She has a friend that she would like to stay with and has a contacts in her charged to help her finger on housing. Denies any medical complaint. Denies delusions, hallucinations. Related Data Home Medications Medication Instructions Recorded Confirmed buspirone 5 mg tablet 10 mg PO BID 12/21/21 10/30/23 metformin 500 mg tablet 500 mg PO BID 12/12/22 10/29/23 spironolactone 50 mg tablet 100 mg PO BID 01/11/23 10/30/23 epinephrine 0.3 mg/0.3 mL 0.3 mg IM ONCE PRN Allergic 10/29/23 10/29/23 injection syringe Reaction lamotrigine 25 mg tablet 50 mg PO DAILY 10/29/23 10/29/23 norethindrone 1 mg-ethinyl 1 tablet PO DAILY 10/29/23 10/29/23 estradiol 20 mcg (21)-iron 75 mg (7) tablet (Blisovi Fe 11/23 (28)) Allergies Allergy/AdvReac Type Severity Reaction Status Date / Time diphenhydramine Allergy Severe Anaphylactic Verified 12/22/23 11:23 [From Benadryl] Shock lidocaine Allergy Severe Anaphylactic Verified 12/22/23 11:23 Shock Review of Systems Review of Systems: All systems as dictated in HPI [facility] Past Medical History Medical History Anxiety Bipolar disorder Depression Initiation of Depo Provera Insertion of Nexplanon 03/2021 Obesity Polycystic ovarian syndrome Pre-diabetes Surveillance for Depo-Provera contraception Surgical History Surgical History History of excision of lesion excision 1 cm left breast skin lesion on 05/03/23 History of laparoscopic appendectomy 05/28/22 Hx laparoscopic cholecystectomy 01/25/23 No pertinent past surgical history Family History Family History Father Hypertension Mother Hypertension Diabetes mellitus Social History Social History Smoking status: Never smoker Tobacco type: e-cigarettes/vaping Additional smoking assessment comments: Vapes daily with nicotine-containing substance for the past few months Alcohol intake: never Substance use: never Substance use type: marijuana Living arrangements: with family Occupation/Education: occupation Additional occupation/education comments: Works in [employer] Gender identity (if verbalized by the patient): Female Spiritual care concerns: No Exam Narrative: GENERAL: Well-appearing, well-nourished, and in no acute distress. HEAD: Normocephalic, atraumatic. EYES: PERRLA and EOMI. ENT: Nares clear, no rhinorrhea or epistaxis. Mucous membranes moist. Oropharynx without tonsillar hypertrophy exudate or other lesions. NECK: Supple. No adenopathy or masses. CHEST: No respiratory distress. Clear to auscultation. No wheezes rales or rhonchi HEART: Regular rate and rhythm. No murmur heard. Normal peripheral pulses. ABDOMEN: Soft, nontender, nondistended, nor
--- NOTE | 2024-01-20 17:50 | PC.NURSE ---
Pt requesting to meet with care coordination for help with housing. RN notified care coordination, spoke with Dhara. Dhara to bring information to pt
== END 2024-01-20 21:14 | disposition home or self-care (01) ==
LOC: ANHED 17:31
PROVIDERS: Emergency Provider Physician Assistant; PCP Student in an Organized Health Care Education/Training Program
DX: Z63.8 Other specified problems related to primary support group (principal); F41.9 Anxiety disorder, unspecified; F31.9 Bipolar disorder, unspecified; E28.2 Polycystic ovarian syndrome; R73.03 Prediabetes; E66.9 Obesity, unspecified
CPT/HCPCS: 99281

== ENCOUNTER 2024-01-20 21:16 | Emergency (ER) | payer OTHER, SELFPAY ==
[2024-01-20 21:22] VITALS: BP 109/75; PULSE 108; RESP 14; TEMP 36.5; O2SAT 98
--- NOTE | 2024-01-21 00:29 | ED.GENADULT ---
HPI - General Adult General Chief complaint: Unspecified Stated complaint: 16 weeks preg, thinks having contractions Time Seen by Provider: 01/21/24 00:22 Source: patient Mode of arrival: ambulatory Limitations: no limitations History of Present Illness HPI narrative: This is a 24-year-old female with PMH of PCOS, bipolar disorder who presents to the ED via EMS for chief complaint of abdominal pain beginning around 1830 this evening. Describes the pain as a lower pain that is cramping in nature. Reports that she has had hematuria and urinary frequency. Denies any association with food or a specific exacerbating factor. Endorses some bilateral lower back pain as well. States the pain has subsided since being triaged and roomed. She does endorse nausea with 1 episode of vomiting prior to arrival. She states that her last period was 4 months ago. She states that she is . Triage note mentions she is 16 weeks but she had a negative test while at our hospital less than a month ago. Seen by myself earlier today for family dispute. Still denies any kind of mental health complaint currently. Related Data Home Medications Medication Instructions Recorded Confirmed buspirone 5 mg tablet 10 mg PO BID 12/21/21 10/30/23 metformin 500 mg tablet 500 mg PO BID 12/12/22 10/29/23 spironolactone 50 mg tablet 100 mg PO BID 01/11/23 10/30/23 epinephrine 0.3 mg/0.3 mL 0.3 mg IM ONCE PRN Allergic 10/29/23 10/29/23 injection syringe Reaction lamotrigine 25 mg tablet 50 mg PO DAILY 10/29/23 10/29/23 norethindrone 1 mg-ethinyl 1 tablet PO DAILY 10/29/23 10/29/23 estradiol 20 mcg (21)-iron 75 mg (7) tablet (Blisovi Fe 11/23 (28)) haloperidol 5 mg tablet mg 01/21/24 trazodone 50 mg tablet mg 01/21/24 Allergies Allergy/AdvReac Type Severity Reaction Status Date / Time diphenhydramine Allergy Severe Anaphylactic Verified 01/21/24 00:47 [From Benadryl] Shock lidocaine Allergy Severe Anaphylactic Verified 01/21/24 00:47 Shock Review of Systems Review of Systems: All systems as dictated in [facility] Past Medical History Medical History Anxiety Bipolar disorder Depression Initiation of Depo Provera Insertion of Nexplanon 03/2021 Obesity Polycystic ovarian syndrome Pre-diabetes Surveillance for Depo-Provera contraception Surgical History Surgical History History of excision of lesion excision 1 cm left breast skin lesion on 05/03/23 History of laparoscopic appendectomy 05/28/22 Hx laparoscopic cholecystectomy 01/25/23 No pertinent past surgical history Family History Family History Father Hypertension Mother Hypertension Diabetes mellitus Social History Social History Smoking status: Never smoker Tobacco type: e-cigarettes/vaping Additional smoking assessment comments: Vapes daily with nicotine-containing substance for the past few months Alcohol intake: never Substance use: never Substance use type: marijuana Living arrangements: with family Occupation/Education: occupation Additional occupation/education comments: Works in [employer] Gender identity (if verbalized by the patient): Female Spiritual care concerns: No Exam Narrative: GENERAL: Well-appearing, well-nourished, and in no acute distress. Resting comfortably, conversational. HEAD: Normocephalic, atraumatic. EYES: PERRLA and EOMI. ENT: Nares clear, no rhinorrhea or epistaxis. Mucous membranes moist. Oropharynx without tonsillar hypertrophy exudate or other lesions. NECK: Supple. No adenopathy or masses. CHEST: No respiratory distress. Clear to auscultation. No wheezes rales or rhonchi HEART: Regular rate and rhythm. No murmur h
[2024-01-21] MEDS: ONDANSETRON HCL ODT 4 MG TABLET PO (00:42)
[2024-01-21 00:43] VITALS: PULSE 84
[2024-01-21 00:45] VITALS: RESP 18
[2024-01-21 01:01] LABS: Alanine Aminotransferase 23 U/L (6-35); Albumin Level 4.3 g/dL (3.5-5.1); Alkaline Phosphatase 52 U/L (38-126); Anion Gap 4 mmol/L (8-16); Aspartate Amino Transferase 38 U/L (14-36); Bilirubin,Total 0.4 mg/dL (0.2-1.3); Blood Urea Nitrogen 10 mg/dL (7-17); Calcium 8.7 mg/dL (8.4-10.2); Carbon Dioxide 25 mmol/L (22-30); Chloride 106 mmol/L (98-107); Estimated CRCL calculation 130 ml/min; Estimated Glomerular Filt Rate > 60; Glucose 86 mg/dL (65-110); Lipase 116 U/L (23-300); Potassium 3.8 mmol/L (3.4-5.0); Sodium 135 mmol/L (137-145)
[2024-01-21 01:02] LABS: Basophils Percent Auto 0.4 % (0.2-1.2); Eosinophils Percent Auto 0.2 % (0-4.4); Hematocrit 40.9 % (37.0-47.0); Hemoglobin 13.7 g/dL (12.0-15.0); Immature Granulocyte Absolute 0.04 K/mm3 (0.00-0.031); Immature Granulocyte Percent A 0.8 % (0-0.5); Lymphocytes Absolute Auto 1.77 K/mm3 (0.9-3.2); Lymphocytes Percent Auto 35.8 % (18.3-44.2); Mean Corpuscular HGB Conc 33.5 g/dl (32-36); Mean Corpuscular Hemoglobin 30.1 pg (26-34); Mean Corpuscular Volume 89.9 fl (80-100); Mean Platelet Volume 9.8 fl (7.4-10.4); Monocytes Absolute Auto 0.7 K/mm3 (0.1-0.6); Monocytes Percent Auto 14.3 % (2.6-8.5); Neutrophils Absolute Auto 2.4 K/mm3 (1.3-6.7); Neutrophils Percent Auto 48.5 % (45.5-73.1); Platelet Count Result 217 k/mm3 (150-375); Red Blood Count 4.55 M/mm3 (4.2-5.4); Red Cell Distribution Width 12.6 % (11.5-14.5)
[2024-01-21 01:48] LABS: Appearance Urine Cloudy (Clear); Bacteria Urine Rare /hpf; Bilirubin Urine Negative (Negative); Blood Urine 1+ (Negative); Color Urine Yellow (Yellow); Glucose Urine UA Negative (Negative); Ketones Urine Trace mg/dL (Negative); Leukocyte Esterase Ur 2+ LEU/UL (Negative); Nitrate Urine Negative (Negative); Non Pathogenic Casts 0-2; Protein Urine 1+ mg/dL (Negative); Specific Grav Ur 1.027 (1.001-1.035); Squamous Epithelial Cell Urine Occasional /hpf (Few); Urobilinogen Urine 0.2 mg/dL (<2.0); WBC Urine >100 /hpf (0-3); pH Urine 5.5 (5.0-9.0)
[2024-01-21 01:53] LABS: Add Urine Microscopic? YES
[2024-01-21] MEDS: CEPHALEXIN 500 MG CAPSULE PO (02:15)
[2024-01-21 02:41] VITALS: PULSE 78; RESP 18; O2SAT 98
== END 2024-01-21 02:42 | disposition home or self-care (01) ==
PROVIDERS: Emergency Provider Physician Assistant; PCP Student in an Organized Health Care Education/Training Program
DX: N39.0 Urinary tract infection, site not specified (principal); E28.2 Polycystic ovarian syndrome; E66.9 Obesity, unspecified; Z68.35 Body mass index [BMI] 35.0-35.9, adult; R73.03 Prediabetes; F31.9 Bipolar disorder, unspecified; F41.9 Anxiety disorder, unspecified; F17.290 Nicotine dependence, other tobacco product, uncomplicated; Z90.49 Acquired absence of other specified parts of digestive tract; Z79.84 Long term (current) use of oral hypoglycemic drugs
CPT/HCPCS: 36415; 80053; 81025; 83690; 85025; 87086; 87088; 87147; 99281; 99284; A9270

== ENCOUNTER 2024-01-22 23:47 | Emergency (ER) | payer OTHER, SELFPAY ==
[2024-01-22 23:47] VITALS: BP 152/105; PULSE 108; RESP 16; TEMP 36.2; O2SAT 100
--- NOTE | 2024-01-23 00:01 | ED.PSYCH ---
HPI - Psych General Chief Complaint: Psychiatric Symptoms Stated Complaint: EVALUATION OF BIPOLAR S/S. Time Seen by Provider: 01/22/24 23:47 History of Present Illness HPI Narrative: 24-year-old female with history of bipolar disorder presents to emergency department for evaluation for reported bipolar problems. Patient states she is homeless and since she has been homeless she feels like she has been more manic. She states she recently had a appointment with her psychiatrist, Ghulam Lima, a couple days ago and no medications were adjusted. She is currently taking BuSpar, Lamictal, and Abilify as directed. She denies this suicidal ideations, homicidal ideations, visual or auditory hallucinations. States she has her psychiatrist's contact information. She has no medical complaints. Related Data Home Medications Medication Instructions Recorded Confirmed buspirone 5 mg tablet 10 mg PO BID 12/21/21 10/30/23 metformin 500 mg tablet 500 mg PO BID 12/12/22 10/29/23 spironolactone 50 mg tablet 100 mg PO BID 01/11/23 10/30/23 epinephrine 0.3 mg/0.3 mL 0.3 mg IM ONCE PRN Allergic 10/29/23 10/29/23 injection syringe Reaction lamotrigine 25 mg tablet 50 mg PO DAILY 10/29/23 10/29/23 norethindrone 1 mg-ethinyl 1 tablet PO DAILY 10/29/23 10/29/23 estradiol 20 mcg (21)-iron 75 mg (7) tablet (Blisovi Fe 11/23 (28)) haloperidol 5 mg tablet mg 01/21/24 trazodone 50 mg tablet mg 01/21/24 Allergies Allergy/AdvReac Type Severity Reaction Status Date / Time diphenhydramine Allergy Severe Anaphylactic Verified 01/21/24 00:47 [From Benadryl] Shock lidocaine Allergy Severe Anaphylactic Verified 01/21/24 00:47 Shock Review of Systems Review of Systems: CONSTITUTIONAL: Denies fever, chills, or sweats. EYES: Denies visual changes, redness, or discharge. ENT: Denies rhinorrhea, congestion, sore throat, or otalgia. CARDIOVASCULAR: Denies chest pain, palpitations, or edema. RESPIRATORY: Denies cough or dyspnea. GASTROINTESTINAL: Denies abdominal pain, nausea, vomiting, or diarrhea. GENITOURINARY: Denies dysuria or hematuria. SKIN: Denies rash or itching. MUSCULOSKELETAL: Denies back pain, joint pain, or myalgia. NEUROLOGIC: Denies headache, numbness, or weakness. PSYCHIATRIC: See [facility] PMFSH Past Medical History Medical History Anxiety Bipolar disorder Depression Initiation of Depo Provera Insertion of Nexplanon 03/2021 Obesity Polycystic ovarian syndrome Pre-diabetes Surveillance for Depo-Provera contraception Surgical History Surgical History History of excision of lesion excision 1 cm left breast skin lesion on 05/03/23 History of laparoscopic appendectomy 05/28/22 Hx laparoscopic cholecystectomy 01/25/23 No pertinent past surgical history Family History Family History Father Hypertension Mother Hypertension Diabetes mellitus Social History Social History Smoking status: Never smoker Tobacco type: e-cigarettes/vaping Additional smoking assessment comments: Vapes daily with nicotine-containing substance for the past few months Alcohol intake: never Substance use: never Substance use type: does not use Living arrangements: with family Occupation/Education: occupation Additional occupation/education comments: Works in [employer] at [employer] Gender identity (if verbalized by the patient): Female Spiritual care concerns: No Exam Narrative: GENERAL: Well-appearing, well-nourished, and in no acute distress. HEAD: Normocephalic, atraumatic. EYES: PERRLA and EOMI. ENT: Nares clear, no rhinorrhea or epistaxis. Mucous membranes moist. NECK: Supple. CHEST: Clear to auscultation. No respiratory distress. HEART: Regular rate and rhythm. No mu
== END 2024-01-23 00:33 | disposition home or self-care (01) ==
PROVIDERS: Emergency Provider Physician Assistant; PCP Student in an Organized Health Care Education/Training Program
DX: F31.9 Bipolar disorder, unspecified (principal); Z59.00 Homelessness unspecified; E28.2 Polycystic ovarian syndrome; R73.03 Prediabetes; E66.9 Obesity, unspecified; Z68.34 Body mass index [BMI] 34.0-34.9, adult; F41.9 Anxiety disorder, unspecified; F17.290 Nicotine dependence, other tobacco product, uncomplicated; Z90.49 Acquired absence of other specified parts of digestive tract; Z79.84 Long term (current) use of oral hypoglycemic drugs
CPT/HCPCS: 99281

== ENCOUNTER 2024-03-19 19:49 | Emergency (ER) | payer OTHER, SELFPAY ==
--- NOTE | ~2024-03-19 | XR_ITS ---
EXAMINATION: XR chest 1V portable DATE: 03/19/2024 20:19 INDICATION: Chest pain. TECHNIQUE: A single frontal view of the chest was obtained. COMPARISON: Chest single view 09/03/22 FINDINGS: There is no pneumonia, pleural effusion, or pneumothorax. The heart size is normal. IMPRESSION: 1. No acute cardiopulmonary disease. Reviewed, dictated and finalized at location E.
[2024-03-19 19:58] VITALS: BP 126/78; PULSE 90; RESP 20; TEMP 36.9; O2SAT 100
--- NOTE | 2024-03-19 20:12 | ECG_ITS ---
SEE SCANNED COPY FOR CONFIRMED REPORT MTDD
[2024-03-19 20:59] LABS: Basophils Percent Auto 0.2 % (0.2-1.2); Eosinophils Percent Auto 0.5 % (0-4.4); Hematocrit 42.6 % (37.0-47.0); Hemoglobin 14.6 g/dL (12.0-15.0); Immature Granulocyte Absolute 0.01 K/mm3 (0.00-0.031); Immature Granulocyte Percent A 0.2 % (0-0.5); Lymphocytes Absolute Auto 2.43 K/mm3 (0.9-3.2); Lymphocytes Percent Auto 36.6 % (18.3-44.2); Mean Corpuscular HGB Conc 34.3 g/dl (32-36); Mean Corpuscular Volume 87.7 fl (80-100); Mean Platelet Volume 9.8 fl (7.4-10.4); Monocytes Absolute Auto 0.5 K/mm3 (0.1-0.6); Monocytes Percent Auto 7.4 % (2.6-8.5); Neutrophils Absolute Auto 3.7 K/mm3 (1.3-6.7); Neutrophils Percent Auto 55.1 % (45.5-73.1); Platelet Count Result 247 k/mm3 (150-375); Red Blood Count 4.86 M/mm3 (4.2-5.4); Red Cell Distribution Width 12.9 % (11.5-14.5); White Blood Count 6.6 K/mm3 (4.5-10.0)
[2024-03-19 21:10] LABS: INR 1.1; Prothrombin Time 14.3 Seconds (11.1-14.7)
[2024-03-19 21:11] LABS: Partial Thromboplastin Time 26.5 Seconds (22.3-36.8)
[2024-03-19 21:19] LABS: Alanine Aminotransferase 21 U/L (6-35); Albumin Level 4.7 g/dL (3.5-5.1); Alkaline Phosphatase 62 U/L (38-126); Anion Gap 11 mmol/L (4-12); Aspartate Amino Transferase 26 U/L (14-36); Bilirubin,Total 0.6 mg/dL (0.2-1.3); Blood Urea Nitrogen 12 mg/dL (7-17); Carbon Dioxide 19 mmol/L (22-30); Chloride 105 mmol/L (98-107); Estimated CRCL calculation 138 ml/min; Estimated Glomerular Filt Rate > 60; Glucose 84 mg/dL (65-110); Lipase 91 U/L (23-300); Potassium 3.8 mmol/L (3.4-5.0); Sodium 135 mmol/L (137-145)
[2024-03-19 21:29] LABS: Troponin I < 0.012 ng/mL (0.000-0.034)
--- NOTE | 2024-03-19 21:42 | ED.GENADULT ---
HPI - General Adult General Chief complaint: Unspecified Stated complaint: tingling to back and arms Time Seen by Provider: 03/19/24 19:53 History of Present Illness HPI narrative: 24-year-old female present to the emergency department for evaluation of intermittent chest pain. Patient describes intermittent substernal chest pain that is been occurring for the last few days. Patient states she has had pain since 2:00 p.m.. Patient denies any cardiac history. Related Data Home Medications Medication Instructions Recorded Confirmed buspirone 5 mg tablet 10 mg PO BID 12/21/21 10/30/23 metformin 500 mg tablet 500 mg PO BID 12/12/22 10/29/23 spironolactone 50 mg tablet 100 mg PO BID 01/11/23 10/30/23 epinephrine 0.3 mg/0.3 mL 0.3 mg IM ONCE PRN Allergic 10/29/23 10/29/23 injection syringe Reaction lamotrigine 25 mg tablet 50 mg PO DAILY 10/29/23 10/29/23 norethindrone 1 mg-ethinyl 1 tablet PO DAILY 10/29/23 10/29/23 estradiol 20 mcg (21)-iron 75 mg (7) tablet (Blisovi Fe 11/23 (28)) haloperidol 5 mg tablet mg 01/21/24 trazodone 50 mg tablet mg 01/21/24 Allergies Allergy/AdvReac Type Severity Reaction Status Date / Time diphenhydramine Allergy Severe Anaphylactic Verified 03/19/24 20:06 [From Benadryl] Shock lidocaine Allergy Severe Anaphylactic Verified 03/19/24 20:06 Shock Review of Systems Review of Systems: All systems reviewed & are unremarkable except as noted in HPI and below PMFSH Past Medical History Medical History Anxiety Bipolar disorder Depression Initiation of Depo Provera Insertion of Nexplanon 03/2021 Obesity Polycystic ovarian syndrome Pre-diabetes Surveillance for Depo-Provera contraception Surgical History Surgical History History of excision of lesion excision 1 cm left breast skin lesion on 05/03/23 History of laparoscopic appendectomy 05/28/22 Hx laparoscopic cholecystectomy 01/25/23 No pertinent past surgical history Family History Family History Father Hypertension Mother Hypertension Diabetes mellitus Social History Social History Smoking status: Never smoker Tobacco type: e-cigarettes/vaping Additional smoking assessment comments: Vapes daily with nicotine-containing substance for the past few months Alcohol intake: never Substance use: never Substance use type: does not use Living arrangements: with family Occupation/Education: occupation Additional occupation/education comments: Works in [employer] Gender identity (if verbalized by the patient): Female Spiritual care concerns: No Exam Narrative: APPEARANCE: Well appearing, no pain, no distress, well-nourished. HEAD: normocephalic, atraumatic. EYES: PERRLA/EOMI, conjunctivae clear. NOSE: Normal no drainage EARS:TMS clear with good light reflex. THROAT: Pharynx clear, no exudate. NECK: Supple. No adenopathy, no masses. RESPIRATORY: Airway patent, respirations nonlabored. Clear to auscultation bilaterally, no rales, rhonchi, wheezing. CARDIOVASCULAR: Regular rate and rhythm without murmurs rubs or gallops. ABDOMINAL: Soft, nontender, nondistended, normal bowel sounds MUSCULOSKELETAL: Reproducible chest wall tendernes to palpation NEURO: Alert. Cranial nerves II through XII intact. SKIN: Warm, dry. Normal Color Course Course Emergency Course: Patient felt improved treatment and patient was discharged to home with instructions for close outpatient follow-up. Vital Signs Vital signs: Vital Signs Temperature 98.4 F 03/19/24 19:58 Pulse Rate 90 03/19/24 19:58 Respiratory Rate 20 03/19/24 19:58 Blood Pressure 126/78 03/19/24 19:58 Pulse Oximetry 100 03/19/24 19:58 Oxygen Delivery Room Air
[2024-03-19 21:52] VITALS: BP 126/83; PULSE 86; RESP 20; O2SAT 99
[2024-03-19] MEDS: KETOROLAC 15 MG/ML VIAL (*BKC) IV PUSH (21:59)
[2024-03-19 22:03] VITALS: BP 126/83; PULSE 91; RESP 16; O2SAT 100
== END 2024-03-19 22:07 | disposition home or self-care (01) ==
PROVIDERS: Emergency Provider Emergency Medicine; PCP Student in an Organized Health Care Education/Training Program
DX: R07.89 Other chest pain (principal); E66.9 Obesity, unspecified; Z68.39 Body mass index [BMI] 39.0-39.9, adult; E28.2 Polycystic ovarian syndrome; R73.03 Prediabetes; F41.9 Anxiety disorder, unspecified; F31.9 Bipolar disorder, unspecified; F17.290 Nicotine dependence, other tobacco product, uncomplicated; Z90.49 Acquired absence of other specified parts of digestive tract
CPT/HCPCS: 36415; 71045; 80053; 83690; 84484; 85025; 85610; 85730; 93005; 96374; 99284; J1885